=== PATIENT | female | born 1965 | race Caucasian/White ===

== ENCOUNTER → 2017-06-28 07:01 | Outpatient (CLI) | payer OTHER, SELFPAY ==
--- NOTE | 2017-06-28 07:04 | CT_ITS ---
STUDY: CT ABDOMEN AND PELVIS WITHOUT CONTRAST REASON FOR EXAM: Female, 52 years old. History of renal calculi. Microscopic hematuria. RADIATION DOSAGE (If Supplied By Facility): CTDIvol = ( 6.08 ) mGy, DLP = ( 273.43 ) mGycm TECHNIQUE: Transaxial images were obtained from the dome of the diaphragm to the symphysis pubis without oral contrast, and without intravenous contrast. Sagittal and coronal images were reconstructed. Individualized dose optimization techniques were used for this CT. COMPARISON: Comparison is made with prior study dated October 28, 2016. FINDINGS: Minimal linear atelectasis at the lung bases. The visualized portions of the heart are within normal limits. Subcentimeter cysts seen in the liver. These are unchanged. Normal gallbladder and extrahepatic biliary system. Normal spleen. Normal pancreas. Normal bilateral adrenal glands. There are several nonobstructive right intrarenal calculi. The largest measures 3 mm and is in the lower pole. Scattered nonobstructive left intrarenal calculi. The calculi have decreased in number and in size as compared to prior study. Normal visualized stomach. Normal small intestine. Normal colon. The appendix is visualized and appears normal. Normal abdominal aorta. Normal inferior vena cava. Normal retroperitoneum. Normal urinary bladder. Calcified phleboliths are seen in the pelvis. Evidence of prior bilateral tubal ligation. Normal abdominal wall. Normal osseous structures. CT/Abdomen/Pelvis without Cont IMPRESSION: Nonobstructing bilateral intrarenal calculi. The left renal calculi have decreased in number since prior study. No ureteral obstruction is seen at this time. Electronically Signed: Russell Christensen MD at 9:39 EST Tel [phone], Service support ,
== END ==
PROVIDERS: Family Provider Family Medicine; PCP Family Medicine; Visit Provider Urology
DX: N20.0 Calculus of kidney (principal)
CPT/HCPCS: 74176

== ENCOUNTER → 2019-06-25 11:22 | Outpatient (CLI) | payer OTHER, SELFPAY ==
[2016-11-17 11:17] VITALS: BMI 21.4
[2019-06-25 14:12] LABS: Anion Gap 5 (5-15); BUN 33 mg/dL (7-18); Chloride 111 mmol/L (98-107); Cholesterol 242 mg/dL (200); EST Glomerular Filtration Rate 38 mL/min (>60); Est Glom Filt Rate - Afr Amer 46 mL/min (>60); Glucose 91 mg/dL (74-106); High Density Lipoprotein 62 mg/dL; Potassium 3.7 mmol/L (3.5-5.1); Sodium Level 139 mmol/L (136-145); Triglycerides 76 mg/dL; Very Low Density Lipoprotein 15 mg/dL (5-40)
== END ==
PROVIDERS: PCP Family Medicine; Referring Provider Family Medicine; Visit Provider Nurse Practitioner Family
DX: Z00.00 Encounter for general adult medical examination without abnormal findings (principal)
CPT/HCPCS: 36415; 80048; 80061

== ENCOUNTER → 2019-07-04 14:12 | Outpatient (CLI) | payer OTHER, SELFPAY | PROVIDERS: PCP Family Medicine; Referring Provider Family Medicine; Visit Provider Family Medicine | DX: N39.0 Urinary tract infection, site not specified (principal) | CPT/HCPCS: 87086; 87088 ==

== ENCOUNTER → 2019-07-18 12:32 | Outpatient (CLI) | payer OTHER, SELFPAY ==
--- NOTE | 2019-07-18 12:34 | US_ITS ---
STUDY: RENAL ULTRASOUND - COMPLETE REASON FOR EXAM: Female, 54 years old. CKD3 TECHNIQUE: Ultrasound evaluation of the kidneys was performed with real-time and static farrell-scale imaging. COMPARISON: None. FINDINGS: RIGHT KIDNEY: Normal location of the right kidney, which is normal in size. The right kidney measures 9.2 cm x 4.5 cm x 3.9 cm. There is a normal cortex of the right kidney. The renal cortex measures 1.3 cm. There is no right renal mass or cyst. There are multiple nonobstructive right intrarenal calculi. The largest measures 9 mm x 9 mm. There is no right hydronephrosis. DISTAL RIGHT URETER: There is non-visualization of the distal right ureter. There is no demonstrated right ureterovesical junction calculus. There is a visualized right ureteral jet. LEFT KIDNEY: Normal location of the left kidney, which is normal in size. The left kidney measures 8.4 cm x 3.6 cm x 3.9 cm. There is a normal cortex of the left kidney. The renal cortex measures 1.0 cm. There is no left renal mass or cyst. There are multiple left nonobstructing intrarenal calculi. The largest measures 8 mm. There is no left hydronephrosis. DISTAL LEFT URETER: There is non-visualization of the distal left ureter. There is no demonstrated left ureterovesical junction calculus. There is a visualized left ureteral jet. BLADDER: The distended urinary bladder has a volume of 212.7 ml. There is a normal wall thickness of the distended urinary bladder. There is no demonstrated mass within the urinary bladder. There are no demonstrated bladder calculi. US/Kidney and Bladder IMPRESSION: Multiple bilateral intrarenal calculi. Electronically Signed: Russell Christensen, at 15:31 EST , Service support ,
== END ==
PROVIDERS: PCP Family Medicine; Referring Provider Family Medicine; Visit Provider Family Medicine
DX: N18.3 Chronic kidney disease, stage 3 (moderate) (principal)
CPT/HCPCS: 76770

== ENCOUNTER → 2019-07-23 13:27 | Outpatient (CLI) | payer OTHER, SELFPAY ==
[2016-11-17 11:17] VITALS: BMI 21.4
[2019-07-23 17:44] LABS: Albumin, Serum 3.9 g/dL (3.2-5.0); BUN 30 mg/dL (7-18); BUN/Creat Ratio 21.3 RATIO (10-20); Calcium,Total 9.2 mg/dL (8.5-10.1); Chloride 111 mmol/L (98-107); Creatinine, Serum 1.41 mg/dL (0.55-1.02); EST Glomerular Filtration Rate 41 mL/min (>60); Est Glom Filt Rate - Afr Amer 50 mL/min (>60); Glucose 88 mg/dL (74-106); Phosphorus 3.1 mg/dL (2.5-4.9); Sodium Level 141 mmol/L (136-145)
== END ==
PROVIDERS: PCP Family Medicine; Visit Provider Internal Medicine Nephrology
DX: N18.3 Chronic kidney disease, stage 3 (moderate) (principal)
CPT/HCPCS: 36415; 80069; 83970

== ENCOUNTER → 2019-07-28 07:40 | Outpatient (CLI) | payer OTHER, SELFPAY ==
[2019-07-28 08:39] LABS: 24Hr.Lytes Total Volume 4175 mL; Sodium 24 HR UR 200 mmol/24h (40-220); Urine Sodium 48 mmol/L (Not Establ.)
[2019-07-28 08:41] LABS: 24HR. Urine Creatinine 1.03 g/24 HR (0.70-1.90)
[2019-07-29 14:08] LABS: Uric Acid, Ur 10.1 mg/dL (Not Estab.)
[2019-07-29 16:42] LABS: Uric Acid, 24Ur 421.3 mg/24 hr (173.7-902.1)
== END ==
PROVIDERS: PCP Family Medicine; Referring Provider Internal Medicine Nephrology; Visit Provider Internal Medicine Nephrology
DX: N20.2 Calculus of kidney with calculus of ureter (principal)
CPT/HCPCS: 81050; 82570; 84300; 84560

== ENCOUNTER → 2020-07-08 13:31 | Outpatient (CLI) | payer OTHER, SELFPAY ==
[2016-11-17 11:17] VITALS: BMI 21.4
== END ==
PROVIDERS: PCP Family Medicine; Referring Provider Family Medicine; Visit Provider Family Medicine
DX: Z20.828 Contact with and (suspected) exposure to other viral communicable diseases (principal)
CPT/HCPCS: 87635; U0005; U0003

== ENCOUNTER 2020-12-22 17:39 | Emergency (ER) | payer OTHER, SELFPAY ==
[2020-12-22 17:39] VITALS: BP 96/44; PULSE 63; RESP 15; TEMP 36.1; O2SAT 99; BMI 22.3
--- NOTE | 2020-12-22 19:13 | CT_ITS ---
STUDY: CT ABDOMEN AND PELVIS WITHOUT CONTRAST REASON FOR EXAM: Female, 55 years old. Pain RADIATION DOSAGE (If Supplied By Facility): CTDIvol = ( 7.65 ) mGy, DLP = ( 355.38 ) mGycm TECHNIQUE: Transaxial images were obtained from the dome of the diaphragm to the symphysis pubis without oral contrast, and without intravenous contrast. Sagittal and coronal images were reconstructed. Individualized dose optimization techniques were used for this CT. COMPARISON: Prior abdomen and pelvic CT exam of 06/28/2017 FINDINGS: Mild atelectatic changes at the left lung base. The visualized portions of the heart are within normal limits. Normal liver. Normal gallbladder and extrahepatic biliary system. Normal spleen. Normal pancreas. Normal bilateral adrenal glands. Hydronephrosis of the right kidney secondary to a 5 x 3 mm stone in the distal right ureter at the ureterovesicular junction. There are 3, 4 and 5 mm nonobstructing stones in the lower pole of the right kidney. 4 x 3 mm nonobstructing stone in the upper pole of the left kidney without hydronephrosis. Small hiatal hernia with an otherwise unremarkable stomach. Normal small intestine. Normal colon. The appendix is visualized and appears normal. Minimal calcific plaque of the aorta. Normal inferior vena cava. Normal retroperitoneum. Nondistended urinary bladder. Negative for pelvic mass. Tubal ligation clip on the right in the adnexal area. The other tubal ligation clip appears to be lying in the fat next to the sigmoid colon not in the adnexal area. Normal abdominal wall. Mild degenerative changes of the lumbar spine with a levoscoliosis. CT/Abdomen/Pelvis without Cont IMPRESSION: Hydronephrosis of the right kidney secondary to a 5 x 3 mm stone in the distal right ureter just above the ureterovesicular junction. There are 3, 4 and 5 mm nonobstructing stones in the lower pole of the right kidney. 3 x 4 mm nonobstructing stone in the upper pole of left kidney without hydronephrosis or ureteral stones. Unremarkable nondistended urinary bladder. No other acute abdominal or pelvic findings. Electronically Signed: Queta Elmore MD at 20:05 EDT , Service support ,
--- NOTE | 2020-12-22 19:17 | ED.VIS.GI ---
HPI HPI - GI History of Present Illness Chief Complaint: Flank Pain Informant: patient Abdominal Pain/Flank Pain Timing: Continuous Narrative Narrative: Patient presents with right flank pain that now radiates to the right groin. She has had kidney stones before. She has got nausea and vomiting with this. She also has felt chilled but no documented fever. She felt fine until noon when this started. She has some chronic back pain but this is quite different. Only surgery is prior . Nothing makes this better or worse. PFSH PFSH Medical History Hypertension Kidney calculi Migraines Home Medications nebivolol [Bystolic] 20 mg PO DAILY 01/31/16 [History Last Taken 11/17/16] topiramate 100 mg PO BID 01/31/16 [History Last Taken Unknown] buspirone 10 mg PO BID 10/28/16 [History Last Taken Unknown] eletriptan [Relpax] 40 mg PO PRN PRN 10/28/16 [History Last Taken Unknown] [id number] acid-biotin [Women Multivit W-Biotin Gummy] 1 ea PO DAILY 11/10/16 [History Last Taken Unknown] cephalexin 500 mg PO TID 7 Days #21 cap 12/22/20 [Rx Last Taken Unknown] ondansetron HCl [Zofran] 4 mg PO Q8H PRN #10 tab 12/22/20 [Rx Last Taken Unknown] oxycodone-acetaminophen [Percocet] 1 tab PO Q6H PRN 3 Days #12 tab 12/22/20 [Rx Last Taken Unknown] tamsulosin [Flomax] 0.4 mg PO DAILY #7 cap 12/22/20 [Rx Last Taken Unknown] Allergy/AdvReac Type Severity Reaction Status Date / Time meperidine [From Demerol] Allergy Vomiting Verified 12/22/20 17:41 tioconazole Allergy Itching Verified 12/22/20 17:41 [From Monistat 1 (tioconazole)] Social History Smoking Status: Never smoker ROS ROS ED Constitutional Constitutional ED: Reports fever(s) and subjective; Denies sweats ENT ENT ED: Denies rhinorrhea Cardiovascular Cardiovascular: Denies chest pain or palpitations Respiratory/Chest Respiratory/Chest: Denies cough or dyspnea Gastrointestinal Gastrointestinal: Reports abdominal pain, nausea and vomiting; Denies constipation, diarrhea or melena Genitourinary Genitourinary ED: Denies dysuria, hematuria or urinary frequency Musculoskeletal Musculoskeletal: Denies arthralgias or myalgias Integumentary Denies rash Neurologic Neurologic: Denies headache(s) or weakness Endocrine Endocrinology: Denies polydipsia or polyuria Allergic/Immunologic Allergic/Immunologic ED: Denies urticaria EXAM Physical Exam Const Vital Signs: 12/22/20 17:39 12/22/20 18:45 Temperature 97 F L Temperature Source Temporal Pulse Rate 63 Respiratory Rate 15 Respiratory Pattern Normal Blood Pressure 96/44 L Blood Pressure Mean 61 Pulse Ox 99 Oxygen Delivery Method Room Air Positive well nourished and well developed General Appearance ED: well developed and other Patient looks a bit uncomfortable HEENT normocephalic and atraumatic Eyes EOMs intact bilaterally Neck supple Resp normal respiratory effort and clear to auscultation bilaterally Cardio regular rate, regular rhythm and no murmurs GI non-tender and non-distended GI Narrative: Despite her pain, the abdomen is actually benign. Palpation: soft Back/Spine Back/Spine Narrative: He does have right-sided CVA tenderness General Back: CVA tenderness Extremity General Extremety ED: Negative for edema or tenderness General Extremity: Negative for edema Neuro Sensorium / Orientation: alert and oriented to person Psych mental status grossly normal Skin Rashes: no rashes MDM MDM MDM Narrative Medical decision making narrative: Patient scan is consistent with a 3 to 5 mm stone in the distal UVJ on the right. She does have some hydro-. She has no white count. Hemoglobin good. Electrolytes show baseline renal dysfunction but is not worse. However her urine did show some signs that could be consistent with infection. Her symptoms do not match that. Her pain was sudden onset at noon. I have sent a urine culture. I will give her Rocephin here. I discussed the case with urology, Dr. Loepz. She can see her in the office tomorrow. We will give her good instructions on indications to return that include worsening pain, fevers, nausea vomiting or other concerns. Lab Data Attestation: I reviewed the patient's lab results. Labs: Laboratory Results - last 24 hr 12/22/20 12/22/20 12/22/20 18:55 18:55 19:28 WBC 6.1 RBC 4.18 L Hgb 13.2 Hct 40.5 MCV 96.9 MCH 31.6 MCHC 32.6 RDW Std Deviation 44.3 H RDW Coeff of [place] 12.5 Plt Count 158 MPV 11.3 Immature Gran % (Auto) 0.700 Neut % (Auto) 93.9 H Lymph % (Auto) 3.5 L [place] % (Auto) 0.7 Eos % (Auto) 0.7 Baso % (Auto) 0.5 Absolute Neuts (auto) 5.7 Absolute Lymphs (auto) 0.21 L Nucleated RBC % 0 Differential Comment SCANNED Sodium 137 Potassium 3.8 Chloride 110 H Carbon Dioxide 20.0 L Anion Gap 7 BUN 24 H Creatinine 1.47 H Estim Creat Clear Calc 36.46 Est GFR (MDRD) Af Amer 47 L Est GFR (MDRD) Non-Af 39 L BUN/Creatinine Ratio 16.3 Glucose 109 H Calcium 8.8 Urine Color Yellow Urine Clarity Sl. Cloudy Urine pH 6.0 Ur Specific [place] 1.020 Urine Protein 30 H Urine Glucose (UA) Normal Urine Ketones Negative Urine Occult Blood 50 H Urine Nitrite Positive H Urine Bilirubin Negative Urine Urobilinogen Normal Ur Leukocyte Esterase 500 H Urine RBC 5-10 SEEN Urine WBC 50-100 SEEN Ur Squamous Epith Cells 0 SEEN Urine Bacteria 3+ Urine Mucus 0 SEEN Radiography Diagnostic Testing: Radiology Impression Abdomen/Pelvis CT 12/22/20 19:13 IMPRESSION: Hydronephrosis of the right kidney secondary to a 5 x 3 mm stone in the distal right ureter just above the ureterovesicular junction. There are 3, 4 and 5 mm nonobstructing stones in the lower pole of the right kidney. 3 x 4 mm nonobstructing stone in the upper pole of left kidney without hydronephrosis or ureteral stones. Unremarkable nondistended urinary bladder. No other acute abdominal or pelvic findings. Electronically Signed: Queta Elmore MD at 20:05 EDT , Service support , Discharge Plan Triage Chief Complaint: Flank Pain ED Provider: Bj Segura Dx/Rx/DC Orders Clinical Impression: Kidney stone Instructions: ED Kidney Stone w/ Colic Prescriptions: New oxycodone-acetaminophen [Percocet] 5-325 mg tablet 1 tab PO Q6H PRN (Reason: pain) 3 Days Qty: 12 RF: 0 tamsulosin [Flomax] 0.4 mg capsule 0.4 mg PO DAILY Qty: 7 RF: 0 ondansetron HCl [Zofran] 4 mg tablet 4 mg PO Q8H PRN (Reason: nausea and vomiting) Qty: 10 RF: 0 cephalexin 500 mg capsule 500 mg PO TID 7 Days Qty: 21 RF: 0 No Action topiramate 50 MG tablet 100 mg PO BID RF: 0 Bystolic 5 MG tablet 20 mg PO DAILY RF: 0 buspirone 10 MG tablet 10 mg PO BID RF: 0 eletriptan [Relpax] 40 MG tablet 40 mg PO PRN PRN (Reason: Headache) RF: 0 Women's Multivitamin w-Biotin 1 EACH tablet,chewable 1 ea PO DAILY RF: 0 Primary Care Provider: Jason Perez Referrals: Jason Perez MD [Primary Care Provider] - Katarina Blanca MD [STAFF PHYSICIAN] - 1 Day Disposition Disposition: Home, Self Care
[2020-12-22] MEDS: Ketorolac 15 MG/ML Vial IV (19:23)
[2020-12-22] MEDS: Ondansetron 4 MG/2 ML Vial IV (19:25)
[2020-12-22 19:26] LABS: Absolute Lymphocyte Count 0.21 X10^3/uL (0.83-4.51); Absolute Neutrophil Count 5.7 X10^3/uL (2.0-7.7); Basophil# 0.03 X10^3/uL; Basophil% 0.5 % (0-1); Eosinophil# 0.04 X10^3/uL; Eosinophils% 0.7 % (0-5); Hematocrit 40.5 % (37-47); Hemoglobin 13.2 g/dL (12.0-15.0); Lymphocyte # 0.21 X10^3/ul (0.83-4.51); Lymphocyte % 3.5 % (19-41); Mean Corp Hgb Conc 32.6 g/dL (32-36); Mean Corpuscular Hgb 31.6 pg (27.0-32.0); Mean Corpuscular Volume 96.9 fL (81-99); Mean Platelet Vol. 11.3 fl (6.2-12.0); Monocyte# 0.04 X10^3/uL; Monocyte% 0.7 % (0-10); NRBC Flagged by Analyzer 0 % (0-5); Neutrophil # 5.71 X10^3/uL (2.7-7.7); Neutrophil % 93.9 % (47-70); POSITIVE DIFFERENTIAL YES; POSITIVE MORPHOLOGY YES; Platelet Count 158 K/mm3 (150-450); RBC Distribution Width CV 12.5 % (11.6-14.6); RBC Distribution Width SD 44.3 fl (35.1-43.9); Red Blood Count 4.18 M/mm3 (4.2-5.4); White Blood Count 6.1 K/mm3 (4.4-11.0)
[2020-12-22] MEDS: Morphine 4 MG/ML Syringe IV (19:26)
[2020-12-22 19:34] LABS: Anion Gap 7 (5-15); BUN 24 mg/dL (7-18); BUN/Creat Ratio 16.3 RATIO (10-20); Calcium,Total 8.8 mg/dL (8.5-10.1); Chloride 110 mmol/L (98-107); Creatinine, Serum 1.47 mg/dL (0.55-1.02); EST Glomerular Filtration Rate 39 mL/min (>60); Est Glom Filt Rate - Afr Amer 47 mL/min (>60); Estimated Creatinine Clearance 36.46 ml/min; Glucose 109 mg/dL (74-106); Potassium 3.8 mmol/L (3.5-5.1); Sodium Level 137 mmol/L (136-145)
[2020-12-22 19:37] LABS: Mucous, Urine 0 SEEN /hpf (<or=2+); Squamous Epithelial Cells - UA 0 SEEN /hpf (5-10)
[2020-12-22 19:43] LABS: Differential Indicated SCAN CRITERIA MET
[2020-12-22 19:47] LABS: Color, Urine Yellow (Yellow); Glucose, Dipstick Normal (Normal); Ketone-Dipstick Negative (Negative); Leukocyte Esterase-Dipstick 500 /ul (Negative); Nitrite-Dipstick Positive (Negative); Occult Blood-Urine 50 /ul (Negative); Protein-Dipstick 30 mg/dl (Negative); Urine Bilirubin Dipstick Negative (Negative); Urine Clarity Sl. Cloudy (Clear); Urine Urobilinogen Normal (Normal)
[2020-12-22 20:10] LABS: Differential Comment SCANNED
[2020-12-22 20:12] LABS: White Blood Cells 50-100 SEEN /hpf (0-5)
[2020-12-22 20:13] LABS: Bacteria 3+ /hpf (None Seen); Red Blood Cells-Urine 5-10 SEEN /hpf (0-5)
[2020-12-22] MEDS: Ceftriaxone 1 GM/50 ML BAG IV (20:54)
[2020-12-22 21:41] VITALS: BP 100/60; PULSE 78; RESP 18; O2SAT 97
== END 2020-12-22 21:41 | disposition home or self-care (01) ==
PROVIDERS: Emergency Provider Emergency Medicine; PCP Family Medicine
DX: N13.2 Hydronephrosis with renal and ureteral calculous obstruction (principal); I10 Essential (primary) hypertension; G89.29 Other chronic pain; M54.9 Dorsalgia, unspecified; Z79.899 Other long term (current) drug therapy
CPT/HCPCS: 74176; 80048; 81001; 85025; 87077; 87086; 87088; 87186; 96365; 96375; 99284; J7050; A4216; J2405

== ENCOUNTER 2020-12-23 13:45 | Observation (INO) | payer OTHER, SELFPAY ==
[2020-12-22 17:39] VITALS: BMI 22.3
[2020-12-23] VITALS (11 sets, daily range): BP systolic 83–103; BP diastolic 49–65; PULSE 64–90; RESP 16–18; TEMP 36.5–37.1; O2SAT 96–99; BMI 25.7
--- NOTE | 2020-12-23 14:00 | EDS_ITS ---
HPI History of Present Illness Chief Complaint: Abd Pain Detail of Chief Complaint: Right-sided back and abdominal pain due to obstructing ureterolithiasis. Informant: patient Onset/Context/Timing Onset: Today Context: Sudden Onset Timing: Intermittent Quality: Temperature 101.2 ?F. Did take pain medicine Location: Obstructing stone right ureter Current Severity: 06/13 Maximum Severity: 8/10 Worsened by: Nothing Relieved by: Medicine prescribed yesterday Associated Symptoms Associated Symptoms: Fever, chills and diaphoresis Narrative Narrative: Patient is a 55-year-old woman who was seen last evening and had an obstructing stone. She was sent in because of elevated temperature with shaking chills and diaphoresis. She states she is feels better since taking Percocet. She is no longer febrile. Blood pressure is low at 98/54. Will need to determine mean arterial pressure. Sepsis work-up was initiated. Patient is scheduled to have operative procedure at 1600. Prior similar symptoms: Yes Recent Illness/Hospitalization: No PFSH PFS Medical History Hypertension Kidney calculi Migraines Home Medications nebivolol [Bystolic] 20 mg PO DAILY 01/31/16 [History Last Taken 11/17/16] topiramate 100 mg PO BID 01/31/16 [History Last Taken Unknown] buspirone 10 mg PO BID 10/28/16 [History Last Taken Unknown] eletriptan [Relpax] 40 mg PO PRN PRN 10/28/16 [History Last Taken Unknown] [id number] acid-biotin [Women Multivit W-Biotin Gummy] 1 ea PO DAILY 11/10/16 [History Last Taken Unknown] cephalexin 500 mg PO TID 7 Days #21 cap 12/22/20 [Rx Last Taken Unknown] ondansetron HCl [Zofran] 4 mg PO Q8H PRN #10 tab 12/22/20 [Rx Last Taken Unknown] oxycodone-acetaminophen [Percocet] 1 tab PO Q6H PRN 3 Days #12 tab 12/22/20 [Rx Last Taken Unknown] tamsulosin [Flomax] 0.4 mg PO DAILY #7 cap 12/22/20 [Rx Last Taken Unknown] potassium citrate 10 meq PO DAILY 12/23/20 [History Last Taken Unknown] Allergy/AdvReac Type Severity Reaction Status Date / Time meperidine [From Demerol] Allergy Vomiting Verified 12/23/20 13:48 tioconazole Allergy Itching Verified 12/23/20 13:48 [From Monistat 1 (tioconazole)] Social History (Updated 12/23/20 @ 14:[address] Vipul Hanley MD) household members: spouse Smoking Status: Never smoker alcohol intake: current alcohol intake frequency: a few times a month substance use type: does not use ROS ROS ED Constitutional Constitutional ED: Reports chills, fever(s) and sweats Eyes Eyes: Denies blurry vision or change in vision ENT ENT ED: Denies ear pain, rhinorrhea or sore throat Cardiovascular Cardiovascular: Denies chest pain or palpitations Respiratory/Chest Respiratory/Chest: Denies cough, dyspnea or dyspnea on exertion Gastrointestinal Gastrointestinal: Reports abdominal pain and nausea; Denies constipation, diarrhea or vomiting Genitourinary Genitourinary ED: Denies dysuria, hematuria or urinary frequency Musculoskeletal Musculoskeletal: Reports back pain; Denies arthralgias, myalgias or neck pain Integumentary Denies Abrasions or rash Neurologic Neurologic: Denies headache(s), paresthesias or weakness EXAM Physical Exam Const Vital Signs: 12/23/20 13:46 12/23/20 14:45 Temperature 98.4 F 98.4 F Temperature Source Oral Oral Pulse Rate 90 64 Respiratory Rate 16 18 Blood Pressure 98/54 L 103/65 Blood Pressure Mean 68 77 Pulse Ox 97 96 Oxygen Delivery Method Room Air Room Air Positive well nourished and well developed General Appearance ED: well developed HEENT Reports moist mucous membranes HEENT Narrative: Has atraumatic normocephalic. There is no asymmetry. Ears normal. Eyes EOMs intact bilaterally Neck no lymphadenopathy, supple and no JVD Chest Wall inspection of chest normal Resp normal respiratory effort and clear to auscultation bilaterally Cardio regular rate, regular rhythm, S1 normal heart sound and S2 normal heart sound GI normal to inspection, nondistended, normoactive bowel sounds and non-tender Palpation: soft Back/Spine General Back: CVA tenderness right Cervical Spine: Negative for cervical spine tenderness Thoracic Spine / Upper Back: Negative for thoracic spinal tenderness or paraspinal muscle tenderness Lumbar Spine / Lower Back: Negative for lumbar spinal tenderness Extremity normal to inspection General Extremety ED: Negative for edema or tenderness General Extremity: Negative for edema Neuro oriented x3 and CN's II-XII intact bilaterally Sensorium / Orientation: alert Sensory Exam: No sensory level loss detected Motor Exam: Negative for strength 5/5 throughout Psych mental status grossly normal Skin no rashes or lesions noted and no wounds MDM MDM MDM Narrative Medical decision making narrative: Patient has a fever with obstructing stone concern for sepsis. Appropriate blood work was ordered. She will receive Rocephin. She is present on cephalexin. Patient blood pressure did improve with fluids. Will order additional liter of normal saline. Lactate was normal. Dr. Katarina Dodson was informed of patient's results. Plan is the operating room at 4:00. Lab Data Attestation: I reviewed the patient's lab results. Lab results narrative: White count is elevated. There is no shift. There is no bandemia. Urine is consistent with an infection. Creatinine is elevated compared to yesterday at 1.91 with a GFR of 29. Lactate is pending. Labs: Laboratory Results - last 24 hr 12/23/20 12/23/20 12/23/20 14:15 14:15 14:15 WBC 11.7 H RBC 3.92 L Hgb 12.7 Hct 36.9 L MCV 94.1 MCH 32.4 H MCHC 34.4 D RDW Std Deviation 44.9 H RDW Coeff of [place] 12.9 Plt Count 151 MPV 11.4 Immature Gran % (Auto) 0.700 Neut % (Auto) 88.2 H Lymph % (Auto) 4.3 L [place] % (Auto) 5.2 Eos % (Auto) 1.1 Baso % (Auto) 0.5 Absolute Neuts (auto) 10.3 H Absolute Lymphs (auto) 0.50 L Nucleated RBC % 0 Sodium 137 Potassium 3.5 Chloride 107 Carbon Dioxide 24.0 Anion Gap 6 BUN 31 H Creatinine 1.91 H Estim Creat Clear Calc 28.06 Est GFR (MDRD) Af Amer 35 L Est GFR (MDRD) Non-Af 29 L BUN/Creatinine Ratio 16.2 Glucose 114 H Lactic Acid 1.6 Calcium 8.6 Urine Color Urine Clarity Urine pH Ur Specific [place] Urine Protein Urine Glucose (UA) Urine Ketones Urine Occult Blood Urine Nitrite Urine Bilirubin Urine Urobilinogen Ur Leukocyte Esterase Urine RBC Urine WBC Ur Squamous Epith Cells Urine Bacteria Urine Mucus 12/23/20 14:32 WBC RBC Hgb Hct MCV MCH MCHC RDW Std Deviation RDW Coeff of [place] Plt Count MPV Immature Gran % (Auto) Neut % (Auto) Lymph % (Auto) [place] % (Auto) Eos % (Auto) Baso % (Auto) Absolute Neuts (auto) Absolute Lymphs (auto) Nucleated RBC % Sodium Potassium Chloride Carbon Dioxide Anion Gap BUN Creatinine Estim Creat Clear Calc Est GFR (MDRD) Af Amer Est GFR (MDRD) Non-Af BUN/Creatinine Ratio Glucose Lactic Acid Calcium Urine Color Yellow Urine Clarity Cloudy Urine pH 5.0 Ur Specific [place] 1.015 Urine Protein 30 H Urine Glucose (UA) Normal Urine Ketones Negative Urine Occult Blood 150 H Urine Nitrite Negative Urine Bilirubin Negative Urine Urobilinogen Normal Ur Leukocyte Esterase 500 H Urine RBC 0-5 SEEN Urine WBC 25-50 SEEN Ur Squamous Epith Cells 0-5 SEEN Urine Bacteria 1+ Urine Mucus 0 SEEN Discharge Plan Triage Chief Complaint: Abd Pain ED Provider: Vipul Hanley Dx/Rx/DC Orders Clinical Impression: Acute hypotension, Urinary tract infection, Ureterolithiasis, Acute on chronic renal insufficiency Prescriptions: No Action topiramate 50 MG tablet 100 mg PO BID RF: 0 Bystolic 5 MG tablet 20 mg PO DAILY RF: 0 buspirone 10 MG tablet 10 mg PO BID RF: 0 eletriptan [Relpax] 40 MG tablet 40 mg PO PRN PRN (Reason: Headache) RF: 0 Women's Multivitamin w-Biotin 1 EACH tablet,chewable 1 ea PO DAILY RF: 0 oxycodone-acetaminophen [Percocet] 5-325 mg tablet 1 tab PO Q6H PRN (Reason: pain) 3 Days Qty: 12 RF: 0 tamsulosin [Flomax] 0.4 mg capsule 0.4 mg PO DAILY Qty: 7 RF: 0 ondansetron HCl [Zofran] 4 mg tablet 4 mg PO Q8H PRN (Reason: nausea and vomiting) Qty: 10 RF: 0 cephalexin 500 mg capsule 500 mg PO TID 7 Days Qty: 21 RF: 0 potassium citrate 10 mEq (1,080 mg) tablet extended release 10 meq PO DAILY RF: 0 Primary Care Provider: Jason Perez Referrals: Jason Perez MD [Primary Care Provider] - Disposition Disposition: Acute Care Hospital [facility]
--- NOTE | 2020-12-23 14:06 | EKG12_ITS ---
Test Reason : ABD PAIN Blood Pressure : / mmHG Vent. Rate : 078 BPM Atrial Rate : 078 BPM P-R Int : 144 ms QRS Dur : 084 ms QT Int : 366 ms P-R-T Axes : 057 032 061 degrees QTc Int : 417 ms Normal sinus rhythm Normal ECG Confirmed by BRAYAN COLLINS, FABIAN ([id number]), design editor INGA LERMA ([id number]) on 12/27/2020 1:17:59 PM Referred By: SHANAE Confirmed By:FABIAN SCHMIDT MD
[2020-12-23 14:35] LABS: Absolute Neutrophil Count 10.3 X10^3/uL (2.0-7.7); Basophil# 0.06 X10^3/uL; Basophil% 0.5 % (0-1); Eosinophil# 0.13 X10^3/uL; Eosinophils% 1.1 % (0-5); Hematocrit 36.9 % (37-47); Hemoglobin 12.7 g/dL (12.0-15.0); Lymphocyte % 4.3 % (19-41); Mean Corp Hgb Conc 34.4 g/dL (32-36); Mean Corpuscular Hgb 32.4 pg (27.0-32.0); Mean Corpuscular Volume 94.1 fL (81-99); Mean Platelet Vol. 11.4 fl (6.2-12.0); Monocyte# 0.61 X10^3/uL; Monocyte% 5.2 % (0-10); NRBC Flagged by Analyzer 0 % (0-5); Neutrophil # 10.29 X10^3/uL (2.7-7.7); Neutrophil % 88.2 % (47-70); POSITIVE DIFFERENTIAL YES; Platelet Count 151 K/mm3 (150-450); RBC Distribution Width CV 12.9 % (11.6-14.6); RBC Distribution Width SD 44.9 fl (35.1-43.9); Red Blood Count 3.92 M/mm3 (4.2-5.4); White Blood Count 11.7 K/mm3 (4.4-11.0)
[2020-12-23 14:37] LABS: Differential Indicated SCAN CRITERIA MET
[2020-12-23] MEDS: 0.9% Normal Saline 1,000 ML 1000 ML IV (14:41)
[2020-12-23 14:47] LABS: Anion Gap 6 (5-15); BUN 31 mg/dL (7-18); BUN/Creat Ratio 16.2 RATIO (10-20); Calcium,Total 8.6 mg/dL (8.5-10.1); Chloride 107 mmol/L (98-107); Creatinine, Serum 1.91 mg/dL (0.55-1.02); EST Glomerular Filtration Rate 29 mL/min (>60); Est Glom Filt Rate - Afr Amer 35 mL/min (>60); Estimated Creatinine Clearance 28.06 ml/min; Glucose 114 mg/dL (74-106); Potassium 3.5 mmol/L (3.5-5.1); Sodium Level 137 mmol/L (136-145)
[2020-12-23 14:47] LABS: Mucous, Urine 0 SEEN /hpf (<or=2+)
[2020-12-23 14:48] LABS: Color, Urine Yellow (Yellow); Glucose, Dipstick Normal (Normal); Ketone-Dipstick Negative (Negative); Leukocyte Esterase-Dipstick 500 /ul (Negative); Nitrite-Dipstick Negative (Negative); Occult Blood-Urine 150 /ul (Negative); Protein-Dipstick 30 mg/dl (Negative); Specific Gravity, Urine 1.015 (1.002-1.030); Urine Bilirubin Dipstick Negative (Negative); Urine Clarity Cloudy (Clear); Urine Urobilinogen Normal (Normal)
[2020-12-23 15:01] LABS: Bacteria 1+ /hpf (None Seen); Red Blood Cells-Urine 0-5 SEEN /hpf (0-5); Squamous Epithelial Cells - UA 0-5 SEEN /hpf (5-10); White Blood Cells 25-50 SEEN /hpf (0-5)
[2020-12-23 15:12] LABS: Lactic Acid 1.6 mmol/L (0.4-1.9)
--- NOTE | 2020-12-23 15:40 | NURSING ---
SURGERY [facility]LEX[facility]DREN[facility] URETERAL STENT PLACEMENT
--- NOTE | 2020-12-23 15:52 | HP.PCM_ITS ---
HPI - General HPI Narrative SUBHASH BAZZI, is a 55 F who presents With a known obstructing right distal ureteral calculus. She was sent home from the emergency room yesterday and today at home developed a fever to 104. We discussed the severity of this situation and will proceed with cystoscopy and right ureteral stent insertion. She has passed many stones in the past and has never required surgical intervention. [facility] Medical History Hypertension Kidney calculi Migraines Home Medications nebivolol [Bystolic] 20 mg PO DAILY 01/31/16 [History Last Taken 11/17/16] topiramate 100 mg PO BID 01/31/16 [History Last Taken Unknown] buspirone 10 mg PO BID 10/28/16 [History Last Taken Unknown] eletriptan [Relpax] 40 mg PO PRN PRN 10/28/16 [History Last Taken Unknown] [id number] acid-biotin [Women Multivit W-Biotin Gummy] 1 ea PO DAILY 11/10/16 [History Last Taken Unknown] cephalexin 500 mg PO TID 7 Days #21 cap 12/22/20 [Rx Last Taken Unknown] ondansetron HCl [Zofran] 4 mg PO Q8H PRN #10 tab 12/22/20 [Rx Last Taken Unknown] oxycodone-acetaminophen [Percocet] 1 tab PO Q6H PRN 3 Days #12 tab 12/22/20 [Rx Last Taken Unknown] tamsulosin [Flomax] 0.4 mg PO DAILY #7 cap 12/22/20 [Rx Last Taken Unknown] potassium citrate 10 meq PO DAILY 12/23/20 [History Last Taken Unknown] Allergy/AdvReac Type Severity Reaction Status Date / Time meperidine [From Demerol] Allergy Vomiting Verified 12/23/20 13:48 tioconazole Allergy Itching Verified 12/23/20 13:48 [From Monistat 1 (tioconazole)] Social History household members: spouse Smoking Status: Never smoker alcohol intake: current alcohol intake frequency: a few times a month substance use type: does not use ROS Constitutional Constitutional: Reports chills, fatigue and fever(s) Eyes Eyes: Reports systems reviewed and no addt'l complaints, except as documented ENT HEENT: Reports systems reviewed and no addt'l complaints, except as documented Cardiovascular Cardiovascular: Denies chest pain, dyspnea at rest or irregular heart rhythm Respiratory/Chest Respiratory/Chest: Denies change in mental status or dyspnea Gastrointestinal Gastrointestinal: Reports abdominal pain and cramping Genitourinary Genitourinary: Reports abdominal discomfort, low back pain and urinary urgency Musculoskeletal Musculoskeletal: Reports systems reviewed and no addt'l complaints, except as documented Integumentary Integumentary: Reports systems reviewed and no addt'l complaints, except as documented Neurologic Neurologic: Reports systems reviewed and no addt'l complaints, except as documented Psychiatric Psychiatric: Reports systems reviewed and no addt'l complaints, except as documented Vital Signs Vital Signs Vital Signs: 12/23/20 13:46 12/23/20 14:45 12/23/20 15:38 Temperature 98.4 F 98.4 F 98.2 F Temperature Source Oral Oral Oral Pulse Rate 90 64 75 Respiratory Rate 16 18 16 Blood Pressure 98/54 L 103/65 97/61 Blood Pressure Mean 68 77 73 Blood Pressure Source Monitor Blood Pressure Position Sitting Blood Pressure Location Right Arm Pulse Ox 97 96 99 Oxygen Delivery Method Room Air Room Air Room Air Weight Weight: 67.9 kg Body Mass Index (BMI) 25.7 Physical Exam Const alert and oriented x3 General Appearance: cooperative and well kempt Orientation / Consciousness: awake and oriented to person Exam Limitations: no limitations HEENT normocephalic, head/scalp atraumatic, external ears normal and external nose normal Head and Scalp: normal to inspection Eyes conjunctivae normal and no scleral icterus Neck supple General: trachea midline Lymph Lymphatic: no lymphedema noted Chest inspection of chest normal Chest: symmetrical chest wall rise Resp normal respiratory effort, normal air movement, no retractions and no use of accessory muscles Cardio regular rhythm GI soft to palpation, non-tender and non-distended Back/Spine General Back: CVA tenderness right Extremity normal to inspection Skin no rashes or lesions noted, no wounds, skin turgor normal, no jaundice, no petechiae and no mottling Neuro oriented x3, CN's II-XII intact bilaterally and moves all extremities Psych mental status grossly normal, thought process normal and cooperative Results Lab / Micro Data Result Diagrams: 12/23/20 14:15 12/23/20 14:15 Labs: Laboratory Results - last 24 hr 12/23/20 14:15: WBC 11.7 H, RBC 3.92 L, Hgb 12.7, Hct 36.9 L, MCV 94.1, MCH 32.4 H, MCHC 34.4 D, RDW Std Deviation 44.9 H, RDW Coeff of Trever 12.9, Plt Count 151, MPV 11.4, Immature Gran % (Auto) 0.700, Neut % (Auto) 88.2 H, Lymph % (Auto) 4.3 L, Pratt % (Auto) 5.2, Eos % (Auto) 1.1, Baso % (Auto) 0.5, Absolute Neuts (auto) 10.3 H, Absolute Lymphs (auto) 0.50 L, Nucleated RBC % 0 12/23/20 14:15: Sodium 137, Potassium 3.5, Chloride 107, Carbon Dioxide 24.0, Anion Gap 6, BUN 31 H, Creatinine 1.91 H, Estim Creat Clear Calc 28.06, Est GFR (MDRD) Af Amer 35 L, Est GFR (MDRD) Non-Af 29 L, BUN/Creatinine Ratio 16.2, Glucose 114 H, Calcium 8.6 12/23/20 14:15: Lactic Acid 1.6 12/23/20 14:32: Urine Color Yellow, Urine Clarity Cloudy, Urine pH 5.0, Ur Specific [place] 1.015, Urine Protein 30 H, Urine Glucose (UA) Normal, Urine Ketones Negative, Urine Occult Blood 150 H, Urine Nitrite Negative, Urine Bilirubin Negative, Urine Urobilinogen Normal, Ur Leukocyte Esterase 500 H, Urine RBC 0-5 SEEN, Urine WBC 25-50 SEEN, Ur Squamous Epith Cells 0-5 SEEN, Urine Bacteria 1+, Urine Mucus 0 SEEN Assessment & Plan Assessment/Plan (1) Ureterolithiasis: PLAN: to operating room for cystoscopy and right ureteral stent insertion. informed consent obtained (2) Urinary tract infection: (3) Acute hypotension:
--- NOTE | 2020-12-23 15:57 | PCM.OPRPT ---
Problems Associated Problem List Diagnoses (1) Ureterolithiasis: (2) Kidney stone: (3) Urinary tract infection: Report of Operation Date of Procedure: 12/23/20 Pre-Operative Diagnosis: Right distal ureteral calculus, hydronephrosis, urinary tract infection, hypotension and fever Post-Operative Diagnosis: Same Surgery/Procedure Performed:: Cystoscopy and right ureteral stent insertion Surgeon: Katarina Blanca Type of Anesthesia: MAC Description of Procedure: The patient is a 55-year-old female who presented to the emergency room yesterday with uncontrolled pain. On further evaluation she was found to have a distal right ureteral calculus with a urinary tract infection. She was given Rocephin and sent home on antibiotics and pain control. She called the office today with fever of 104 and not feeling well with increased lower abdominal cramping. She was sent to the emergency room which revealed hypotension, increased white count, and creatinine up to 1.9. The patient was prepared and taken to the operating room after informed consent was obtained for placement of a right ureteral stent. The patient was taken to the operating room and placed on the operating room table. Anesthesia monitored the head, neck, airway, IV access and vital signs throughout the case. Once anesthesia was appropriate ministered, the patient was placed into dorsal lithotomy position was prepped and draped in usual sterile fashion. The cystoscope was inserted through the urethra under direct visualization into the urinary bladder. There were no masses, foreign bodies identified. The right ureteral orifice was visualized and intubated with a 0.035 Glidewire. A 6 Kiswahili 24 cm JJ stent was inserted over the Glidewire with positioning into the renal pelvis and curling in the urinary bladder. The patient's bladder was then emptied, and the case was terminated. She was taken to the recovery room in good condition. There were no complications during this procedure. Grafts/Implants Used: 6 x 24 JJ stent Complications None Admit VTE Documentation VTE Present on Admission: Yes VTE Mechan Device Prophylaxis: SCD's VTE Pharm Prophylaxis ordered?: Yes
[2020-12-23] MEDS: Lidocaine Jelly 2% 20 ML Syringe (URO-JET) 20 APPLIC (16:33)
[2020-12-23] MEDS: Lubricating Jelly 60 GM Tube 30 GM TOPICAL (16:33)
[2020-12-23] MEDS: HYDROcodone Bitartrate/Apap 5/325 Tablet PO (18:49)
[2020-12-23] MEDS: Topiramate 100 MG Tablet PO (21:14)
[2020-12-23] MEDS: Docusate Sodium 100 MG Capsule PO (21:14)
[2020-12-23] MEDS: 0.9% Normal Saline 1,000 ML 150 ML IV (21:14)
[2020-12-24 01:15] VITALS: BP 97/60; PULSE 68; RESP 16; TEMP 37.1; O2SAT 97
[2020-12-24] MEDS: 0.9% Normal Saline 1,000 ML 150 ML IV (04:12)
[2020-12-24 04:15] VITALS: BP 109/62; PULSE 78; RESP 16; TEMP 36.7; O2SAT 98
[2020-12-24 06:51] LABS: Absolute Lymphocyte Count 0.46 X10^3/uL (0.83-4.51); Absolute Neutrophil Count 5.7 X10^3/uL (2.0-7.7); Basophil# 0.03 X10^3/uL; Basophil% 0.4 % (0-1); Eosinophil# 0.31 X10^3/uL; Eosinophils% 4.5 % (0-5); Hematocrit 34.8 % (37-47); Hemoglobin 10.9 g/dL (12.0-15.0); Lymphocyte # 0.46 X10^3/ul (0.83-4.51); Lymphocyte % 6.7 % (19-41); Mean Corp Hgb Conc 31.3 g/dL (32-36); Mean Corpuscular Hgb 30.8 pg (27.0-32.0); Mean Corpuscular Volume 98.3 fL (81-99); Mean Platelet Vol. 11.9 fl (6.2-12.0); Monocyte# 0.38 X10^3/uL; Monocyte% 5.5 % (0-10); NRBC Flagged by Analyzer 0 % (0-5); Neutrophil # 5.69 X10^3/uL (2.7-7.7); Neutrophil % 82.3 % (47-70); POSITIVE COUNT YES; POSITIVE DIFFERENTIAL YES; Platelet Count 97 K/mm3 (150-450); RBC Distribution Width CV 13.1 % (11.6-14.6); RBC Distribution Width SD 46.7 fl (35.1-43.9); Red Blood Count 3.54 M/mm3 (4.2-5.4); White Blood Count 6.9 K/mm3 (4.4-11.0)
[2020-12-24 06:56] LABS: Differential Indicated SCAN CRITERIA MET
[2020-12-24 07:14] LABS: Differential Comment SCANNED; Platelet Estimate SLT DEC (ADEQ)
[2020-12-24 07:16] LABS: Anion Gap 7 (5-15); BUN 26 mg/dL (7-18); BUN/Creat Ratio 18.2 RATIO (10-20); Calcium,Total 8.2 mg/dL (8.5-10.1); Chloride 111 mmol/L (98-107); Creatinine, Serum 1.43 mg/dL (0.55-1.02); EST Glomerular Filtration Rate 40 mL/min (>60); Est Glom Filt Rate - Afr Amer 49 mL/min (>60); Estimated Creatinine Clearance 37.48 ml/min; Glucose 75 mg/dL (74-106); Potassium 4.2 mmol/L (3.5-5.1); Sodium Level 143 mmol/L (136-145)
[2020-12-24 07:22] VITALS: BP 122/73; PULSE 93; RESP 14; TEMP 37.7; O2SAT 98
[2020-12-24 10:05] VITALS: TEMP 37.2
[2020-12-24] MEDS: Ceftriaxone 1 GM/50 ML BAG IV (10:06)
[2020-12-24] MEDS: POTASSIUM CITRATE 5 MEQ TABLET.ER 10 MEQ PO (10:10)
[2020-12-24] MEDS: Nebivolol HCl 10 MG Tablet 20 MG PO (10:11)
[2020-12-24] MEDS: Docusate Sodium 100 MG Capsule PO (10:11)
[2020-12-24] MEDS: Enoxaparin 30 MG/0.3 ML Syringe SC (10:11)
[2020-12-24] MEDS: Topiramate 100 MG Tablet PO (10:15)
--- NOTE | 2020-12-24 13:03 | PCM.DC ---
Discharge Instructions Diet Discharge Diet: No restrictions Activity Discharge Activity: Return to Normal Activity Dressing / Incision Call your doctor if you observe: Fever of 101 or Higher, Inability to urinate, Inability to have a bowel movement and Uncontrolled pain Follow Up Care Please Follow Up With: Katarina Blanca MD When: in 1 week in the office Test Results: Test results from this visit will be discussed in further detail at your follow-up appointment, if applicable. Discharge Plan Admission Admit Date/Time: 12/23/20 17:33 Attending Provider: Katarina Blanac Primary Care Provider: Jason Perez Discharge Orders/Prescriptions Prescriptions: New phenazopyridine [Pyridium] 200 MG tablet 200 mg PO TID PRN PRN (Reason: Bladder Spasms) 7 Days Qty: 30 RF: 0 Continued topiramate 50 MG tablet 100 mg PO BID RF: 0 Bystolic 5 MG tablet 20 mg PO DAILY RF: 0 buspirone 10 MG tablet 10 mg PO BID RF: 0 eletriptan [Relpax] 40 MG tablet 40 mg PO PRN PRN (Reason: Headache) RF: 0 Women's Multivitamin w-Biotin 1 EACH tablet,chewable 1 ea PO DAILY RF: 0 oxycodone-acetaminophen [Percocet] 5-325 mg tablet 1 tab PO Q6H PRN (Reason: pain) 3 Days Qty: 12 RF: 0 tamsulosin [Flomax] 0.4 mg capsule 0.4 mg PO DAILY Qty: 7 RF: 0 ondansetron HCl [Zofran] 4 mg tablet 4 mg PO Q8H PRN (Reason: nausea and vomiting) Qty: 10 RF: 0 cephalexin 500 mg capsule 500 mg PO TID 7 Days Qty: 21 RF: 0 potassium citrate 10 mEq (1,080 mg) tablet extended release 10 meq PO DAILY RF: 0 cranberry 400 mg Capsule 400 mg PO DAILY RF: 0 Referrals / Follow Up: Jason Perez MD [Primary Care Provider] - Disposition Disposition (needs filled in before D/C Order can be placed): Home, Self Care
== END 2020-12-24 14:00 | disposition home or self-care (01) ==
LOC: ED 15:23 → SDC 15:41 → MS3 12-24 01:13 → SDC 12-24 11:03 → MS3 12-24 11:03
PROVIDERS: Admitting Provider Urology; Emergency Provider Emergency Medicine; PCP Family Medicine; Visit Provider Urology
PROC: (CPT 52332; principal; 2020-12-23 15:50)
DX: N13.6 Pyonephrosis (principal); I95.9 Hypotension, unspecified; G43.909 Migraine, unspecified, not intractable, without status migrainosus; I10 Essential (primary) hypertension; Z79.899 Other long term (current) drug therapy
CPT/HCPCS: 52332; 36415; 76000; 80048; 81001; 83605; 85025; 87040; 87086; 87088; 93005; 96361; 96365; 96366; 96372; 99218; 99251; 99283; J7030; J7040; A4216; C2617; G0378; G0463; J0696

== ENCOUNTER → 2021-01-05 16:51 | Outpatient (CLI) | payer OTHER, SELFPAY ==
[2020-12-23 17:34] VITALS: BMI 25.7
--- NOTE | 2021-01-05 16:54 | RAD_ITS ---
STUDY: X-RAY - CERVICAL SPINE REASON FOR EXAM: Female, 55 years old. NECK PAIN TECHNIQUE: 5 view(s) of the cervical spine were obtained. COMPARISON: 10/15/2013 FINDINGS: Normal anterior atlantoaxial articulation. Normal odontoid process. Normal cervical lordosis. There is multi-level endplate spondylosis. There is multi-level degenerative disc disease with multilevel disc space narrowing. Normal visualized intervertebral neuroforamina. The soft tissue structures are unremarkable. RAD/Cerv Spine 4 or 5 Views IMPRESSION: Mild degenerative disc disease of the lower cervical spine similar to the prior study. Electronically Signed: Shun Be MD at 9:53 EDT Tel , Service support ,
== END ==
PROVIDERS: PCP Family Medicine; Referring Provider Family Medicine; Visit Provider Family Medicine
DX: M54.2 Cervicalgia (principal)
CPT/HCPCS: 72050

== ENCOUNTER → 2021-01-14 18:59 | Outpatient (CLI) | payer OTHER, SELFPAY ==
[2020-12-23 17:34] VITALS: BMI 25.7
--- NOTE | 2021-01-14 18:58 | CT_ITS ---
INDICATION: URETERAL STONES EXAMINATION: CT ABDOMEN AND PELVIS WITHOUT CONTRAST - CT Abdomen And Pelvis W/O Contrast Injection TECHNIQUE: Helically acquired images were obtained of the abdomen and pelvis without oral or IV contrast. A radiation dose optimization technique was used for this scan. IV Contrast dosage and agent: None. Oral contrast: None. COMPARISON: 12/22/2020 CT abdomen and pelvis. FINDINGS: LOWER CHEST: Minimal bibasilar atelectasis. No cardiomegaly or pericardial effusion. LIVER: Homogeneous. 2, subcentimeter hypodensities right hepatic lobe too small to confidently characterize however most likely represent cysts. GALLBLADDER AND BILIARY TREE: No calcified gallstones. No gallbladder distension or wall edema. No intra- or extrahepatic biliary ductal dilation. PANCREAS: No focal cystic or solid mass. SPLEEN: Normal size without focal cystic or solid mass. ADRENAL GLANDS: No nodules. KIDNEYS AND URETERS: Right double-J ureteral stent is well-positioned. There is significant interval decrease in previously seen perinephric stranding and hydronephrosis. Extra renal pelvis is present. No abnormal calyceal dilation. No residual obstructing stone. No stone in the ureter or bladder. 3 nonobstructing stones inferior pole right kidney 4 mm or smaller are unchanged compared to prior exam. There is also a nonobstructing 4 mm stone in the superior pole of the left kidney, and a 2 mm stone in the inferior pole left kidney. No solid or cystic renal mass lesion. PERITONEUM: No ascites or free air. No other fluid collection. BOWEL: No evidence of acute appendicitis. No stomach or bowel distension. No focal inflammatory change. LYMPH NODES: No enlarged mesenteric or retroperitoneal lymph nodes. VESSELS: Aorta is non-dilated. URINARY BLADDER: Unremarkable. REPRODUCTIVE ORGANS: No pelvic masses. Small metallic clamp right adnexa unchanged compared to prior exam. There are scattered pelvic phleboliths. Uterus is within normal limits. Atrophic ovaries are noted. ABDOMINAL WALL: No discrete abdominal or pelvic wall hernia. BONES: Lateral curvature lumbar spine, convex left. Minimal degenerative endplate changes. Moderate facet arthropathy and opposing posterior spinous processes are noted. No fracture or focal osseous lesion. CT/Abdomen/Pelvis without Cont IMPRESSION: Interval resolution of right-sided hydronephrosis and perinephric fluid status post double-J ureteral stent. No obstructing genitourinary stone. Nonobstructing stones right and left kidney, 4 mm or smaller as above, unchanged compared to prior exam. Electronically Signed: Rajesh Kimble DO at 21:38 EDT Tel , Service support ,
== END ==
PROVIDERS: PCP Family Medicine; Visit Provider Urology
DX: N20.1 Calculus of ureter (principal)
CPT/HCPCS: 74176

== ENCOUNTER → 2021-02-11 09:39 | Outpatient (CLI) | payer OTHER, SELFPAY ==
--- NOTE | 2021-02-11 09:42 | RAD_ITS ---
STUDY: X-RAY - ABDOMEN/PELVIS REASON FOR EXAM: Female, 55 years old. KUB- KIDNEY STONES TECHNIQUE: Single AP view of the abdomen / pelvis. COMPARISON: None. FINDINGS: There is an unremarkable bowel gas pattern. Multiple small calcific opacities overlying the lower pole of the right kidney suggestive of right renal stones. No definite ureteral stone. There are calcified phleboliths in the pelvis. Status post bilateral tubal ligation. Moderate levoscoliosis of the lumbar spine. RAD/Abdomen Single View IMPRESSION: Suspect multiple right renal stones. No definite ureteral stone. Electronically Signed: Shun Be MD at 10:24 EDT Tel , Service support ,
== END ==
PROVIDERS: PCP Family Medicine; Referring Provider Urology; Visit Provider Urology
DX: N20.0 Calculus of kidney (principal)
CPT/HCPCS: 74018

== ENCOUNTER 2021-03-14 09:54 | Day surgery (SDC) | payer OTHER, SELFPAY ==
[2021-03-14] VITALS (7 sets, daily range): BP systolic 81–134; BP diastolic 52–85; PULSE 56–72; RESP 16; TEMP 36.1–36.8; O2SAT 99–100; BMI 25.7
[2021-03-14] MEDS: Lactated Ringers 1,000 ML 100 ML IV (10:38)
--- NOTE | 2021-03-14 11:05 | PCM.HP.STD ---
HPI - General HPI Narrative SUBHASH BAZZI, is a 55 F who presents for extracorporal shockwave lithotripsy management of her right renal stones. Informed consent was obtained. [facility] Medical History Alcohol use Anxiety Arthritis Hypertension Kidney calculi Low iron Migraines Non-smoker Home Medications nebivolol [Bystolic] 20 mg PO DAILY 01/31/16 [History Last Taken 03/14/21 07:00] topiramate 100 mg PO BID 01/31/16 [History Last Taken 03/14/21 07:00] buspirone 10 mg PO BID PRN 10/28/16 [History Last Taken 03/13/21] eletriptan [Relpax] 40 mg PO PRN PRN 10/28/16 [History Last Taken 03/13/21] Women's Multivitamin w-Biotin 1 ea PO DAILY 11/10/16 [History Last Taken 03/13/21] cranberry 400 mg PO DAILY 12/23/20 [History Last Taken 03/13/21] potassium citrate 10 meq PO DAILY 12/23/20 [History Last Taken 03/13/21] [id number] [Excedrin Migraine] 2 tab PO Q6H PRN 03/14/21 [History Last Taken 03/14/21 07:00 2 tabs] Allergy/AdvReac Type Severity Reaction Status Date / Time meperidine [From Demerol] Allergy Vomiting Verified 03/07/21 13:12 tioconazole Allergy Itching Verified 03/07/21 13:12 [From Monistat 1 (tioconazole)] Surgical History History of cystoscopy Social History household members: spouse Smoking Status: Never smoker alcohol intake: current alcohol intake frequency: a few times a month substance use type: does not use ROS Constitutional Constitutional: Denies fatigue, fever(s) or headache(s) Eyes Eyes: Denies change in vision ENT HEENT: Denies abnormal hearing, dysphagia or loss taste/smell Cardiovascular Cardiovascular: Denies abdominal pain, chest pain or edema Respiratory/Chest Respiratory/Chest: Denies cough, dyspnea, hemoptysis or inability to speak Gastrointestinal Gastrointestinal: Denies abdominal pain, anorexia, change in stool character, chewing difficulty or fecal incontinence Genitourinary Genitourinary: Denies change in urinary stream, dysuria, hematuria, urinary frequency or urinary urgency Musculoskeletal Musculoskeletal: Denies extremity pain Integumentary Integumentary: Denies pruritus or rash Neurologic Neurologic: Denies abnormal hearing, abnormal movements or abnormal speech Psychiatric Psychiatric: Reports systems reviewed and no addt'l complaints, except as documented Endocrine Endocrinology: Reports systems reviewed and no addt'l complaints, except as documented Hematologic/Lymphatic Hematologic/Lymphatic: Reports systems reviewed and no addt'l complaints, except as documented Allergic/Immunologic Allergic/Immunologic: Reports systems reviewed and no addt'l complaints, except as documented Vital Signs Vital Signs Vital Signs: 03/14/21 10:38 Temperature 98.3 F Temperature Source Temporal Pulse Rate 64 Respiratory Rate 16 Respiratory Pattern Normal Blood Pressure 125/83 H Blood Pressure Mean 97 Blood Pressure Source Manual Blood Pressure Position Sitting Blood Pressure Location Left Arm Pulse Ox 100 Oxygen Delivery Method Room Air Weight Weight: 68 kg Body Mass Index (BMI) 25.7 Physical Exam Const alert, oriented x3 and no apparent distress General Appearance: cooperative and comfortable Orientation / Consciousness: awake HEENT normocephalic, head/scalp atraumatic and external ears normal Face and Sinus: face symmetric Nose: external nose normal External Ear: external ears normal Mouth: lips normal Eyes General Eye: normal appearance of both eyes Neck supple General: trachea midline Lymph Lymphatic: no lymphedema noted Chest Chest: symmetrical chest wall rise Resp normal respiratory effort, normal air movement, no retractions and no use of accessory muscles Effort and Inspection: able to speak in complete sentences and symmetric chest movement Cardio regular rate and regular rhythm GI soft to palpation, non-tender and non-distended no CVA tenderness Back/Spine General Back: CVA tenderness Extremity General Extremity: normal exam except as noted Skin no rashes or lesions noted, no wounds, skin turgor normal, no jaundice, no petechiae and no mottling Neuro oriented x3, CN's II-XII intact bilaterally and moves all extremities Psych mental status grossly normal, thought process normal and cooperative Assessment & Plan Assessment/Plan (1) Kidney stone: PLAN: Proceed with right extracorporal shockwave lithotripsy for right renal stones. Informed consent was obtained.
--- NOTE | 2021-03-14 11:11 | PCM.DC ---
Discharge Instructions Diet Discharge Diet: No restrictions Activity Discharge Activity: No Restrictions May resume sexual activity in: No Restrictions Dressing / Incision Call your doctor if you observe: Fever of 101 or Higher, Inability to urinate, Inability to have a bowel movement and Uncontrolled pain Follow Up Care Please Follow Up With: Katarina Blanca MD When: in 2-3 weeks with KUB Test Results: Test results from this visit will be discussed in further detail at your follow-up appointment, if applicable. Discharge Plan Admission Attending Provider: Katarina Blanca Primary Care Provider: Jason Perez Discharge Orders/Prescriptions Prescriptions: New oxycodone-acetaminophen [Percocet] 5-325 mg tablet 1 tab PO Q8H PRN (Reason: pain) 3 Days Qty: 10 RF: 0 cephalexin [cephalexin] 500 MG capsule 500 mg PO Q12 3 Days Qty: 6 RF: 0 Continued topiramate 50 MG tablet 100 mg PO BID RF: 0 nebivolol [Bystolic] 5 MG tablet 20 mg PO DAILY RF: 0 buspirone 10 MG tablet 10 mg PO BID PRN (Reason: Anxiety) RF: 0 eletriptan [Relpax] 40 MG tablet 40 mg PO PRN PRN (Reason: Headache) RF: 0 Women's Multivitamin w-Biotin 1 EACH tablet,chewable 1 ea PO DAILY RF: 0 potassium citrate 10 mEq (1,080 mg) tablet extended release 10 meq PO DAILY RF: 0 cranberry 400 mg Capsule 400 mg PO DAILY RF: 0 Excedrin Migraine 250-250-65 mg Tablet 2 tab PO Q6H PRN (Reason: Migraine Headache) RF: 0 Referrals / Follow Up: Jason Perez MD [Primary Care Provider] - Disposition Disposition (needs filled in before D/C Order can be placed): Home, Self Care
[2021-03-14] MEDS: Ciprofloxacin 400 MG/200 ML BAG 200 MG IV (11:45)
--- NOTE | 2021-03-14 13:46 | PCM.OPRPT ---
Problems Associated Problem List Diagnoses (1) Kidney stone: Report of Operation Date of Procedure: 03/14/21 Pre-Operative Diagnosis: right renal stones Post-Operative Diagnosis: same Surgery/Procedure Performed:: right renal extracorporeal shockwave lithotripsy Surgeon: Katarina Blanca Type of Anesthesia: General Description of Procedure: The patient is a 55-year-old female found to have multiple stones approximately 4 to 5 mm in size in the right kidney. She presents for definitive management. Informed consent was obtained. The patient was taken to the operating room and placed on the operating room table. Anesthesia monitored the head, neck, airway, IV access and vital signs throughout the case. Once anesthesia was probably ministered, the lithotripter was aligned with the stone seen on fluoroscopy. 3000 shocks in total were administered and the stones appeared to be fragmented at the conclusion of the case. The patient was then awakened and taken the recovery room in good condition. There were no complications during this procedure. Grafts/Implants Used: none Complications none Admit VTE Documentation VTE Present on Admission: Yes VTE Mechan Device Prophylaxis: SCD's VTE Pharm Prophylaxis ordered?: No Reason prophylaxis not ordered:: Treatment Not Indicated
== END 2021-03-14 14:09 | disposition home or self-care (01) ==
LOC: SDC 09:55 → AC 10:03
PROVIDERS: PCP Family Medicine; Referring Provider Urology; Visit Provider Urology
PROC: (CPT 50590; principal; 2021-03-14 11:35)
DX: N20.0 Calculus of kidney (principal); I10 Essential (primary) hypertension; Z87.442 Personal history of urinary calculi
CPT/HCPCS: 00873; 50590; J7120; J0744

== ENCOUNTER → 2021-04-01 13:19 | Outpatient (CLI) | payer OTHER, SELFPAY ==
--- NOTE | 2021-04-01 13:21 | RAD_ITS ---
STUDY: X-RAY - ABDOMEN/PELVIS REASON FOR EXAM: Female, 55 years old. KUB- KIDNEY STONES TECHNIQUE: Single AP view of the abdomen / pelvis. COMPARISON: 02/11/2021 FINDINGS: Excluded lung bases. There is an unremarkable bowel gas pattern. There is no demonstrated free abdominal air. The visualized liver, spleen and kidneys are grossly normal in size and morphology. The punctate right renal calculi evident on prior x-ray are not clearly seen. There are calcified phleboliths in the pelvis. Tubal ligation surgical clips. Levoscoliosis. RAD/Abdomen Single View IMPRESSION: 1. Right renal calculi seen on the prior study no longer identified. Electronically Signed: Sherman Sullivan MD ([place]) at 16:43 EDT , Service support ,
== END ==
PROVIDERS: PCP Family Medicine; Referring Provider Urology; Visit Provider Urology
DX: N20.0 Calculus of kidney (principal)
CPT/HCPCS: 74018

== ENCOUNTER → 2021-05-31 09:56 | Outpatient (CLI) | payer OTHER, SELFPAY ==
[2021-05-31 12:24] LABS: Hematocrit 41.1 % (37-47); Hemoglobin 13.4 g/dL (12.0-15.0); Mean Corp Hgb Conc 32.6 g/dL (32-36); Mean Corpuscular Hgb 31.1 pg (27.0-32.0); Mean Corpuscular Volume 95.4 fL (81-99); Mean Platelet Vol. 11.1 fl (6.2-12.0); Platelet Count 183 K/mm3 (150-450); RBC Distribution Width CV 12.4 % (11.6-14.6); RBC Distribution Width SD 43.8 fl (35.1-43.9); Red Blood Count 4.31 M/mm3 (4.2-5.4); White Blood Count 4.2 K/mm3 (4.4-11.0)
[2021-05-31 12:34] LABS: Fibrinogen 295 mg/dl (203-444)
[2021-05-31 12:52] LABS: AST(SGOT) 21 U/L (15-37); Alanine Aminotransfer ALT/SGPT 22 U/L (13-56); Albumin, Serum 3.5 g/dL (3.2-5.0); Alkaline Phosphatase 137 U/L (45-117); Anion Gap 7 (5-15); BUN 14 mg/dL (7-18); Calcium,Total 8.8 mg/dL (8.5-10.1); Chloride 109 mmol/L (98-107); Creatinine, Serum 1.08 mg/dL (0.55-1.02); EST Glomerular Filtration Rate 55 mL/min (>60); Est Glom Filt Rate - Afr Amer 67 mL/min (>60); Globulin 3.6 g/dL (2.2-4.2); Glucose 78 mg/dL (74-106); Potassium 3.8 mmol/L (3.5-5.1); Protein, Total 7.1 g/dL (6.4-8.2); Sodium Level 142 mmol/L (136-145)
== END ==
PROVIDERS: PCP Family Medicine; Visit Provider Nurse Practitioner Family
DX: R25.2 Cramp and spasm (principal)
CPT/HCPCS: 36415; 80053; 85027; 85379; 85384

== ENCOUNTER → 2021-05-31 15:06 | Outpatient (CLI) | payer OTHER, SELFPAY ==
--- NOTE | 2021-05-31 15:15 | VDLE_ITS ---
Reason For Study: suspected DVT Procedure LEFT This is a venous duplex using B-mode, color GSV is normal. flow and spectral Doppler. CFV is compressible, spontaneous, phasic, Exam performed in department. competent, and demonstrates normal The exam was abbreviated due to the COVID 19 augmentation. protocol. FV is compressible, spontaneous, phasic, The exam was diagnostic. competent and demonstrates normal A preliminary report was called and/or faxed augmentation. to Selina COSTA. POP V is compressible, spontaneous, phasic, competent and demonstrates normal augmentation. T/P Trunk is compressible. PTV is compressible. LT PerV is compressible. VL/Venous Duplex US, Unilateral Interpretation Summary There is no evidence of left lower extremity deep vein thrombosis. Left great s aphenous vein appears patent and compressible segmentally. Abreviated Covid 19 protocol Ordering Physician: Selina Munoz Performed By: Channing Membreno RVRegina
== END ==
PROVIDERS: PCP Family Medicine; Referring Provider Nurse Practitioner Family; Visit Provider Nurse Practitioner Family
DX: R09.89 Other specified symptoms and signs involving the circulatory and respiratory systems (principal)
CPT/HCPCS: 93971

== ENCOUNTER → 2021-09-22 | Outpatient (CLI) | payer OTHER, SELFPAY | END | disposition home or self-care (01) | LOC: LABSPEC 15:22 | PROVIDERS: PCP Family Medicine; Referring Provider Family Medicine; Visit Provider Family Medicine | DX: R09.89 Other specified symptoms and signs involving the circulatory and respiratory systems (principal); Z20.822 Contact with and (suspected) exposure to COVID-19 | CPT/HCPCS: 87635; U0003; U0005 ==

== ENCOUNTER → 2022-06-23 | Outpatient (CLI) | payer OTHER, SELFPAY ==
[2022-06-23 12:05] LABS: Absolute Lymphocyte Count 1.38 X10^3/uL (0.83-4.51); Absolute Neutrophil Count 2.7 X10^3/uL (2.0-7.7); Basophil# 0.05 X10^3/uL; Eosinophil# 0.51 X10^3/uL; Eosinophils% 10.1 % (0-5); Hematocrit 41.3 % (37-47); Hemoglobin 13.2 g/dL (12.0-15.0); Lymphocyte # 1.38 X10^3/ul (0.83-4.51); Lymphocyte % 27.4 % (19-41); Mean Corpuscular Hgb 30.7 pg (27.0-32.0); Mean Platelet Vol. 11.2 fl (6.2-12.0); Monocyte# 0.35 X10^3/uL; NRBC Flagged by Analyzer 0 % (0-5); Neutrophil # 2.72 X10^3/uL (2.7-7.7); Neutrophil % 54.1 % (47-70); Platelet Count 205 K/mm3 (150-450); RBC Distribution Width CV 12.1 % (11.6-14.6); RBC Distribution Width SD 41.9 fl (35.1-43.9)
[2022-06-23 12:28] LABS: PTHIN 37.5 pg/mL (18.4-80.1)
[2022-06-23 12:33] LABS: Vitamin D,25 Hydroxy 42.6 ng/mL
[2022-06-23 12:37] LABS: ALB/GLOB Ratio 1.1 RATIO (0.9-2.4); AST(SGOT) 17 U/L (15-37); Alanine Aminotransfer ALT/SGPT 16 U/L (13-56); Albumin, Serum 3.8 g/dL (3.2-5.0); Alkaline Phosphatase 119 U/L (45-117); Anion Gap 7 (5-15); BUN 28 mg/dL (7-18); BUN/Creat Ratio 23.3 RATIO (10-20); Calcium,Total 8.7 mg/dL (8.5-10.1); Chloride 111 mmol/L (98-107); Cholesterol 262 mg/dL (200); EST Glomerular Filtration Rate 49 mL/min (>60); Est Glom Filt Rate - Afr Amer 59 mL/min (>60); Globulin 3.4 g/dL (2.2-4.2); Glucose 90 mg/dL (74-106); High Density Lipoprotein 55 mg/dL; Magnesium 1.8 mg/dL (1.6-2.6); Potassium 4.3 mmol/L (3.5-5.1); Protein, Total 7.2 g/dL (6.4-8.2); Sodium Level 141 mmol/L (136-145); T4 Free Direct 0.84 ng/dL (0.76-1.46); Thyroid Stim Hormone (TSH) 0.94 uIU/mL (0.358-3.74); Triglycerides 160 mg/dL; Very Low Density Lipoprotein 32 mg/dL (5-40)
[2022-06-23 13:01] LABS: Microalbumin,Random Urine 24.2 mg/L (NO RANGE EST.); Microalbumin:Creatinine Ratio 27.8 mg/g CRE (<30 mg/g CRE)
== END | disposition home or self-care (01) ==
LOC: MTLAB 11:03
PROVIDERS: PCP Family Medicine; Referring Provider Family Medicine; Visit Provider Family Medicine
DX: N18.30 Chronic kidney disease, stage 3 unspecified (principal); R00.2 Palpitations; E78.00 Pure hypercholesterolemia, unspecified
CPT/HCPCS: 36415; 80053; 80061; 82043; 82306; 82570; 83735; 83970; 84439; 84443; 85025

== ENCOUNTER → 2022-10-24 | Outpatient (CLI) | payer OTHER, SELFPAY ==
[2022-10-24 13:46] LABS: ALB/GLOB Ratio 1.1 RATIO (0.9-2.4); AST(SGOT) 15 U/L (15-37); Alanine Aminotransfer ALT/SGPT 17 U/L (13-56); Albumin, Serum 3.9 g/dL (3.2-5.0); Alkaline Phosphatase 143 U/L (45-117); Anion Gap 8 (5-15); BUN 27 mg/dL (7-18); BUN/Creat Ratio 21.8 RATIO (10-20); Calcium,Total 9.2 mg/dL (8.5-10.1); Chloride 112 mmol/L (98-107); Cholesterol 276 mg/dL (200); Creatinine, Serum 1.24 mg/dL (0.55-1.02); EST Glomerular Filtration Rate 47 mL/min (>60); Est Glom Filt Rate - Afr Amer 57 mL/min (>60); Globulin 3.7 g/dL (2.2-4.2); Glucose 101 mg/dL (74-106); High Density Lipoprotein 56 mg/dL; Potassium 4.3 mmol/L (3.5-5.1); Protein, Total 7.6 g/dL (6.4-8.2); Sodium Level 141 mmol/L (136-145); Triglycerides 122 mg/dL; Very Low Density Lipoprotein 24 mg/dL (5-40)
[2022-10-24 13:48] LABS: Microalbumin,Random Urine 18.4 mg/L (NO RANGE EST.); Microalbumin:Creatinine Ratio 13.7 mg/g CRE (<30 mg/g CRE)
== END | disposition home or self-care (01) ==
LOC: MTLAB 11:00
PROVIDERS: PCP Family Medicine; Referring Provider Family Medicine; Visit Provider Family Medicine
DX: N18.30 Chronic kidney disease, stage 3 unspecified (principal); E78.00 Pure hypercholesterolemia, unspecified
CPT/HCPCS: 36415; 80053; 80061; 82043; 82570

== ENCOUNTER 2022-12-17 16:33 | Emergency (ER) | payer OTHER, SELFPAY ==
[2022-12-17 16:33] VITALS: BP 161/75; PULSE 70; RESP 18; TEMP 36.1; O2SAT 97; BMI 25.7
--- NOTE | 2022-12-17 17:21 | CT_ITS ---
INDICATION: trauma -- TRAUMA ONLY: IV Contrast. Dont wait for creatinine EXAMINATION: CT Chest Abdomen And Pelvis W/ Contrast Injection TECHNIQUE: Images were obtained of the chest, abdomen and pelvis following IV contrast. A radiation dose optimization technique was used for this scan. IV Contrast dosage and agent: IV 100mL [id number] COMPARISON: None. FINDINGS: Lungs: Unremarkable Mediastinum: The cardiomediastinal silhouette is not enlarged. No mediastinal, hilar or axillary adenopathy. Mild aortic arch and coronary artery calcifications. No obvious filling defect seen within the visualized pulmonary arteries. Pleura: Unremarkable Liver: Scattered subcentimeter hypodensities are too small to characterize but most likely cysts. Gallbladder: Unremarkable Spleen: Unremarkable Pancreas: Unremarkable Adrenal Glands: Unremarkable Kidneys: 3 mm nonobstructing stone in the left mid renal pole. Vasculature: Mild scattered aortoiliac atherosclerotic calcifications. GI Tract: Hiatal hernia. Lymphadenopathy: None Peritoneum: No ascites. Bladder: Unremarkable Reproductive organs: Unremarkable Bones/Soft tissues: Mild scattered degenerative changes of the visualized spine. Mild subcutaneous fat stranding in the left anterior thigh. CT/CT Chest, Abd, Pel w/Contrast IMPRESSION: No acute abnormalities in the chest, abdomen or pelvis. 3 mm nonobstructing stone in the left mid renal pole. Electronically Signed: Jose Ramon Slade MD at 18:59 EDT ,
--- NOTE | 2022-12-17 17:21 | CT_ITS ---
EXAMINATION : Head CT w/out contrast HISTORY : Trauma COMPARISON : None. TECHNIQUE : Multiple contiguous axial images were obtained from the skull base to the vertex without intravenous contrast. A radiation dose optimization technique was used for this scan. FINDINGS : The ventricles and sulci are normal in size. There is no evidence for acute intracranial hemorrhage, mass effect, or midline shift. There is no extra-axial fluid collection. There is normal farrell-white differentiation, without CT evidence of acute ischemia or infarct. The skull base and calvarium are unremarkable. The orbits are unremarkable. The paranasal sinuses are clear. The mastoid air cells are well-aerated. The soft tissues are unremarkable. CT/Brain/Head without Contrast IMPRESSION: No acute intracranial abnormality. Electronically Signed: Jose Ramon Slade MD at 18:56 EDT ,
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
--- NOTE | 2022-12-17 17:40 | RAD_ITS ---
INDICATION: pain EXAMINATION/TECHNIQUE: X-RAY - RIGHT XR Foot Min 3 Views COMPARISON: None. FINDINGS: No acute fracture or malalignment. No blastic or lytic lesions. Mild degenerative changes of the hindfoot. The soft tissues are unremarkable. RAD/Foot min 3 Views IMPRESSION: No acute radiographic abnormalities. Electronically Signed: Jose Ramon Slade MD at 20:29 EDT ,
[2022-12-17] MEDS: Lidocaine/Epi/Tetracaine 50 ML 1 APPLIC TOPICAL (17:46)
[2022-12-17 18:07] LABS: Absolute Lymphocyte Count 1.38 X10^3/uL (0.83-4.51); Absolute Neutrophil Count 6.9 X10^3/uL (2.0-7.7); Basophil# 0.06 X10^3/uL; Basophil% 0.6 % (0-1); Eosinophil# 0.44 X10^3/uL; Eosinophils% 4.7 % (0-5); Hemoglobin 12.6 g/dL (12.0-15.0); Lymphocyte # 1.38 X10^3/ul (0.83-4.51); Lymphocyte % 14.7 % (19-41); Mean Corp Hgb Conc 32.3 g/dL (32-36); Mean Corpuscular Volume 96.1 fL (81-99); Mean Platelet Vol. 10.8 fl (6.2-12.0); Monocyte# 0.56 X10^3/uL; NRBC Flagged by Analyzer 0 % (0-5); Neutrophil # 6.92 X10^3/uL (2.7-7.7); Neutrophil % 73.5 % (47-70); Platelet Count 202 K/mm3 (150-450); RBC Distribution Width CV 12.3 % (11.6-14.6); RBC Distribution Width SD 42.8 fl (35.1-43.9); Red Blood Count 4.06 M/mm3 (4.2-5.4); White Blood Count 9.4 K/mm3 (4.4-11.0)
[2022-12-17 18:25] LABS: Anion Gap 5 (5-15); BUN 22 mg/dL (7-18); BUN/Creat Ratio 17.3 RATIO (10-20); Calcium,Total 8.7 mg/dL (8.5-10.1); Chloride 113 mmol/L (98-107); Creatinine, Serum 1.27 mg/dL (0.55-1.02); EST Glomerular Filtration Rate 46 mL/min (>60); Est Glom Filt Rate - Afr Amer 55 mL/min (>60); Estimated Creatinine Clearance 41.19 ml/min; Glucose 108 mg/dL (74-106); Potassium 3.6 mmol/L (3.5-5.1); Sodium Level 141 mmol/L (136-145); Troponin-I HS 3 pg/mL (3.0-54.0)
--- NOTE | 2022-12-17 18:40 | RAD_ITS ---
INDICATION: Trauma EXAMINATION/TECHNIQUE: X-RAY - XR Spine Cervical 2 or 3 Views COMPARISON: None. FINDINGS: VERTEBRAE: Preserved vertebral body height. No fracture. 2 mm retrolisthesis C3 on C4. Preservation of the normal cervical lordosis. Severe multilevel facet arthropathy. DISCS: Severe multilevel degenerative disc disease and spondylosis. NECK SOFT TISSUES: No prevertebral soft tissue widening. LUNG APICES: Clear. RAD/Cerv Spine 2 or 3 Views IMPRESSION: No evidence of acute fracture. Grade 1 retrolisthesis C3 on C4. Severe multilevel degenerative disc disease and spondylosis. Electronically Signed: Jose Ramon Slade MD at 20:29 EDT ,
[2022-12-17 18:43] LABS: Alcohol, Blood (Medical)-Serum < 3.0 mg/dL
[2022-12-17 19:00] VITALS: BP 123/64; PULSE 67; RESP 18; O2SAT 99
[2022-12-17] MEDS: Diphth,Pertuss(Acell),Tet Vac 0.5 ML Vial IM (21:02)
[2022-12-17 21:07] VITALS: BP 122/82; PULSE 62; RESP 18; O2SAT 99
== END 2022-12-17 21:12 | disposition home or self-care (01) ==
PROVIDERS: Emergency Provider Student in an Organized Health Care Education/Training Program; PCP Family Medicine; Visit Provider Student in an Organized Health Care Education/Training Program
DX: S01.01XA Laceration without foreign body of scalp, initial encounter (principal); S09.8XXA Other specified injuries of head, initial encounter; V43.52XA Car driver injured in collision with other type car in traffic accident, initial encounter; Y92.410 Unspecified street and highway as the place of occurrence of the external cause; I10 Essential (primary) hypertension; Z79.899 Other long term (current) drug therapy; F41.9 Anxiety disorder, unspecified; Z79.82 Long term (current) use of aspirin; S90.31XA Contusion of right foot, initial encounter; S29.8XXA Other specified injuries of thorax, initial encounter; Z23 Encounter for immunization
CPT/HCPCS: 12002; 70450; 71260; 72040; 73630; 74177; 80048; 82077; 84484; 85025; 90471; 90715; 93005; 99283; Q9967; A4216

== ENCOUNTER → 2023-01-09 | Outpatient (CLI) | payer OTHER, SELFPAY ==
--- NOTE | 2023-01-09 09:05 | VDLE_ITS ---
Reason For Study: contusion Procedure LEFT This is a venous duplex using B-mode, color GSV is normal. flow and spectral Doppler. CFV is compressible, spontaneous, phasic, Exam performed in department. competent, and demonstrates normal The exam was abbreviated due to the COVID 19 augmentation. protocol. FV is compressible, spontaneous, phasic, The exam was diagnostic. competent and demonstrates normal A preliminary report was called and/or faxed augmentation. to Kalpana at Dr. Maldonado's office. POP V is compressible, spontaneous, phasic, competent and demonstrates normal augmentation. T/P Trunk is compressible. PTV is compressible. LT PerV is compressible. Short segment of the Soleus V is dilated and noncompressible. VL/Venous Duplex US, Unilateral Interpretation Summary Acute deep vein thrombosis is noted in the left soleus vein. The remainder of t he left lower extremity deep venous system is patent and compressible. Valvular competence ap pears intact within the proximal deep venous system on the left . The left great saphenous vein romulo ears patent and compressible segmentally. Ordering Physician: Manju Maldonado Performed By: Channing Membreno RVT
== END | disposition home or self-care (01) ==
LOC: CVS 09:04
PROVIDERS: PCP Family Medicine; Referring Provider Family Medicine; Visit Provider Family Medicine
DX: S80.12XS Contusion of left lower leg, sequela (principal)
CPT/HCPCS: 93971

== ENCOUNTER → 2023-02-09 | Outpatient (CLI) | payer OTHER, SELFPAY ==
--- NOTE | 2023-02-09 10:03 | VDLE_ITS ---
Reason For Study: acute embolism & thrombosis of unspecified deep veins Procedure LEFT This is a venous duplex using B-mode, color GSV is normal. flow and spectral Doppler. CFV is patent and compressible. Exam performed in department. FV is compressible, spontaneous, phasic, A preliminary report was called and/or faxed competent and demonstrates normal to Dr. Maldonado @ [phone] @ 10:35 am. augmentation. POP V is compressible, spontaneous, phasic, competent and demonstrates normal augmentation. T/P Trunk is compressible. PTV is compressible. LT PerV is compressible. LT SOLEUS V OCCLUSION APPEARS RESOLVED. NON-VASCULAR STRUCTURE MEASURING 1.83 cm. X 0.60 cm, noted in the proximal/lateral thigh. VL/Venous Duplex US, Unilateral Interpretation Summary Deep veins of the left lower extremity are patent and compressible segmentally. There is no evidence of left lower extremity deep vein thrombosis. The left great saphenous vein romulo ears patent and compressible segmentally. Resolution of prior soleus vein thrombus Non-Vascular structure measuring 1.83 cm. X 0.60 cm, noted in the proximal/late ral thigh. Ordering Physician: Manju Maldonado Referring Physician: Jason Perez Performed By: Lin Tucker, KANE, RVT
== END | disposition home or self-care (01) ==
PROVIDERS: PCP Family Medicine; Referring Provider Family Medicine; Visit Provider Family Medicine
DX: I82.409 Acute embolism and thrombosis of unspecified deep veins of unspecified lower extremity (principal)
CPT/HCPCS: 93971

== ENCOUNTER → 2023-03-06 | Outpatient (CLI) | payer OTHER, SELFPAY ==
[2023-03-06 15:33] LABS: Absolute Lymphocyte Count 1.13 X10^3/uL (0.83-4.51); Absolute Neutrophil Count 2.6 X10^3/uL (2.0-7.7); Basophil# 0.05 X10^3/uL; Basophil% 1.1 % (0-1); Eosinophil# 0.33 X10^3/uL; Eosinophils% 7.4 % (0-5); Hematocrit 42.1 % (37-47); Hemoglobin 13.3 g/dL (12.0-15.0); Lymphocyte # 1.13 X10^3/ul (0.83-4.51); Lymphocyte % 25.2 % (19-41); Mean Corp Hgb Conc 31.6 g/dL (32-36); Mean Corpuscular Hgb 30.8 pg (27.0-32.0); Mean Corpuscular Volume 97.5 fL (81-99); Mean Platelet Vol. 11.6 fl (6.2-12.0); Monocyte% 8.9 % (0-10); NRBC Flagged by Analyzer 0 % (0-5); Neutrophil # 2.55 X10^3/uL (2.7-7.7); Platelet Count 219 K/mm3 (150-450); RBC Distribution Width CV 12.3 % (11.6-14.6); RBC Distribution Width SD 44.4 fl (35.1-43.9); Red Blood Count 4.32 M/mm3 (4.2-5.4); White Blood Count 4.5 K/mm3 (4.4-11.0)
[2023-03-06 15:49] LABS: ALB/GLOB Ratio 1.1 RATIO (0.9-2.4); AST(SGOT) 18 U/L (15-37); Alanine Aminotransfer ALT/SGPT 23 U/L (13-56); Albumin, Serum 3.8 g/dL (3.2-5.0); Alkaline Phosphatase 121 U/L (45-117); Anion Gap 6 (5-15); BUN 20 mg/dL (7-18); BUN/Creat Ratio 15.5 RATIO (10-20); Calcium,Total 9.4 mg/dL (8.5-10.1); Chloride 113 mmol/L (98-107); Cholesterol 228 mg/dL (200); Creatinine, Serum 1.29 mg/dL (0.55-1.02); EST Glomerular Filtration Rate 45 mL/min (>60); Est Glom Filt Rate - Afr Amer 54 mL/min (>60); Globulin 3.5 g/dL (2.2-4.2); Glucose 83 mg/dL (74-106); High Density Lipoprotein 52 mg/dL; Potassium 4.1 mmol/L (3.5-5.1); Protein, Total 7.3 g/dL (6.4-8.2); Sodium Level 142 mmol/L (136-145); Triglycerides 138 mg/dL; Very Low Density Lipoprotein 28 mg/dL (5-40)
== END | disposition home or self-care (01) ==
LOC: MTLAB 12:35
PROVIDERS: PCP Family Medicine; Referring Provider Family Medicine; Visit Provider Family Medicine
DX: E78.00 Pure hypercholesterolemia, unspecified (principal); N18.30 Chronic kidney disease, stage 3 unspecified; I12.9 Hypertensive chronic kidney disease with stage 1 through stage 4 chronic kidney disease, or unspecified chronic kidney disease
CPT/HCPCS: 36415; 80053; 80061; 85025

== ENCOUNTER 2023-03-24 07:47 | Emergency (ER) | payer OTHER, SELFPAY ==
[2023-03-24 07:48] VITALS: BP 130/81; PULSE 67; RESP 16; TEMP 36.3; O2SAT 97; BMI 25.2
--- NOTE | 2023-03-24 07:58 | VDLE_ITS ---
Reason For Study: RLE Pain RIGHT LEFT GSV is normal. CFV is compressible, spontaneous, phasic, CFV is compressible, spontaneous, phasic, competent, and demonstrates normal competent and demonstrates normal augmentation. augmentation. FV is compressible, spontaneous, phasic, competent and demonstrates normal augmentation. POP V is compressible, spontaneous, phasic, competent and demonstrates normal augmentation. T/P Trunk is compressible. PTV is compressible. RT PerV is compressible. Rt SoleusV is partially compressible with bright intraluminal echoes consistent with chronic DVT. Procedure This is a venous duplex using B-mode, color flow and spectral Doppler. Exam performed portable in ED. A preliminary report was called and/or faxed to Dr. Molina. VL/Venous Duplex US, Unilateral Interpretation Summary Chronic venous changes are noted in the right soleus vein, which is partially c ompressible and demonstrates bright intraluminal echogenicity. The remainder of the right lower extremity deep venous system is patent and compressible. Valvular competence appears intact wi thin the proximal deep venous system on the right . The right great saphenous vein appears patent and compressible segmentally. The left common femoral vein is patent and compressible . Ordering Physician: Eyal Molina Referring Physician: Jason Perez Performed By: Paloma Rivera, KANE, RVT
--- NOTE | 2023-03-24 07:59 | EDS_ITS ---
HPI History of Present Illness Chief Complaint: Lower Extremity Injury Narrative Narrative: This with right calf pain. She is on Eliquis for the past 4 months for a left- sided DVT and symptoms are somewhat similar. She is getting on a flight in a few days and wants to make sure she does not have another DVT. She has no trauma, no redness fevers or chills. PFSH PFSH Medical History Alcohol use Anxiety Arthritis BPPV (benign paroxysmal positional vertigo) Hypertension Kidney calculi Left ear pain Low iron Migraines Non-smoker Home Medications nebivolol 5 mg tablet (Bystolic) 20 mg PO DAILY 01/31/16 [History Last Taken 03/14/21 07:00] topiramate 50 mg tablet 100 mg PO BID 01/31/16 [History Last Taken 03/14/21 07:00] eletriptan 40 mg tablet (Relpax) 40 mg PO PRN PRN Headache 10/28/16 [History Last Taken 03/13/21] multivit with minerals-folic acid 200 mcg-biotin 300 mcg chew tablet (Women's Multivitamin with Biotin) 1 ea PO DAILY 11/10/16 [History Last Taken 03/13/21] cranberry 400 mg capsule 400 mg PO DAILY 12/23/20 [History Last Taken 03/13/21] nitrofurantoin macrocrystal 50 mg capsule 50 mg PO DAILY 12/17/22 [History Last Taken Unknown] ramipril 1.25 mg capsule 1.25 mg PO DAILY 12/17/22 [History Last Taken Unknown] apixaban 5 mg tablet (Eliquis) 5 mg PO BID 03/21/23 [History Last Taken Unknown] meclizine 25 mg tablet 25 mg PO BID PRN motion sickness #14 tabs 03/21/23 [Rx Last Taken Unknown] Allergy/AdvReac Type Severity Reaction Status Date / Time meperidine [From Demerol] Allergy Vomiting Verified 03/24/23 07:48 tioconazole Allergy Itching Verified 03/24/23 07:48 [From Monistat 1 (tioconazole)] Family History (Updated 03/21/23 @ 14:21 by Paloma Nieto) Other Breast cancer Cancer Parkinson disease Surgical History History of cystoscopy Social History household members: spouse Smoking Status: Never smoker alcohol intake: current alcohol intake frequency: a few times a month substance use type: does not use ROS ROS ED ROS Narrative Past medical history: DVT Medications: Reviewed Social history: Noncontributory Review of systems: Musculoskeletal: Right calf pain Skin: No abrasions or lacerations Neurological: No weakness or paresthesias Hematologic: No easy bleeding or easy bruising EXAM Physical Exam Narrative Exam Narrative: Physical exam General: Patient does not appear in significant distress . Cardiovascular: Normal distal pulses Back: Nontender, Normal Inspection. Extremities: Slight tenderness proximal calf region. No signs of infection. Full strength and sensation. Negative Marko Skin: No abrasions, no lacerations Neurological: Normal strength and sensation Const Vital Signs: 03/24/23 07:48 Temperature 97.3 F L Temperature Source Temporal Pulse Rate 67 Respiratory Rate 16 Blood Pressure 130/81 H Blood Pressure Mean 97 Pulse Ox 97 Oxygen Delivery Method Room Air MDM MDM MDM Narrative Medical decision making narrative: Patient's work-up is unremarkable. There is no evidence of DVT. Since there is no trauma I do not believe an x-ray is needed. There is no signs of infection. She is reassured her pain is controlled I will discharge her in stable condition. Discharge Plan Triage Chief Complaint: Lower Extremity Injury ED Provider: Eyal Molina Dx/Rx/DC Orders Clinical Impression: History of deep vein thrombosis, Calf pain Instructions: RICE Prescriptions: No Action Eliquis 5 mg tablet 5 mg PO BID meclizine 25 mg tablet 25 mg PO BID PRN (Reason: motion sickness) Qty: 14 0RF topiramate 50 MG tablet 100 mg PO BID Patient Comments: nebivolol [Bystolic] 5 MG tablet 20 mg PO DAILY Patient Comments: eletriptan [Relpax] 40 MG tablet 40 mg PO PRN PRN (Reason: Headache) Patient Comments: Women's Multivitamin w-Biotin 1 EACH tablet,chewable 1 ea PO DAILY cranberry 400 mg Capsule 400 mg PO DAILY nitrofurantoin macrocrystal 50 mg capsule 50 mg PO DAILY ramipril 1.25 mg capsule 1.25 mg PO DAILY Primary Care Provider: Jason Perez Referrals: Jason Perez MD [Primary Care Provider] - 3-5 Days Disposition Disposition: Home, Self Care
== END 2023-03-24 09:53 | disposition home or self-care (01) ==
PROVIDERS: Emergency Provider Emergency Medicine; PCP Family Medicine; Visit Provider Emergency Medicine
DX: M79.661 Pain in right lower leg (principal); I10 Essential (primary) hypertension; Z86.718 Personal history of other venous thrombosis and embolism
CPT/HCPCS: 93971; 99282

== ENCOUNTER → 2023-08-09 | Outpatient (CLI) | payer OTHER, SELFPAY ==
[2023-08-09 15:59] LABS: Anion Gap 8 (5-15); BUN 30 mg/dL (7-18); BUN/Creat Ratio 22.6 RATIO (10-20); Calcium,Total 9.2 mg/dL (8.5-10.1); Chloride 110 mmol/L (98-107); Creatinine, Serum 1.33 mg/dL (0.55-1.02); EST Glomerular Filtration Rate 43 mL/min (>60); Est Glom Filt Rate - Afr Amer 52 mL/min (>60); Glucose 81 mg/dL (74-106); Potassium 3.5 mmol/L (3.5-5.1); Sodium Level 141 mmol/L (136-145)
== END | disposition home or self-care (01) ==
PROVIDERS: PCP Family Medicine; Referring Provider Family Medicine; Visit Provider Family Medicine
DX: N18.30 Chronic kidney disease, stage 3 unspecified (principal)
CPT/HCPCS: 36415; 80048

== ENCOUNTER → 2024-09-16 | Outpatient (CLI) | payer OTHER, SELFPAY ==
--- NOTE | 2024-09-16 12:53 | VDLE_ITS ---
Reason For Study Reason For Study: RLE PAIN RIGHT LEFT GSV is normal. CFV is compressible, spontaneous, phasic, competent, CFV is compressible, spontaneous, phasic, competent and demonstrates normal augmentation. and demonstrates normal augmentation. FV is compressible, spontaneous, phasic, competent and demonstrates normal augmentation. POP V is compressible, spontaneous, phasic, competent and demonstrates normal augmentation. T/P Trunk is compressible. PTV is compressible. RT PerV is compressible. Soleus V is DILATED & NONCOMPRESSIBLE with bright intraluminal echoes present C/W acute on chronic DVT. Procedure This is a venous duplex using B-mode, color flow and spectral Doppler. Exam performed in department. A preliminary report was called and/or faxed to Dr. Perez's office @ 13:40. Office will call patient with instructions. VL/Venous Duplex US, Unilateral Interpretation Summary Acute on chronic deep vein thrombosis noted in the right soleus vein. Ordering Physician: Jason Perez Referring Physician: Jason Perez Performed By: Lin Tucker, KANE, RVT
== END | disposition home or self-care (01) ==
LOC: CVS 12:47
PROVIDERS: PCP Family Medicine; Referring Provider Family Medicine; Visit Provider Family Medicine
DX: M79.606 Pain in leg, unspecified (principal)
CPT/HCPCS: 93971

== ENCOUNTER → 2024-09-18 | Outpatient (CLI) | payer OTHER, SELFPAY ==
[2024-09-18 15:22] LABS: Bacteria 0 SEEN /hpf (None Seen); Mucous, Urine 0 SEEN /hpf (<or=2+)
[2024-09-18 17:56] LABS: Erythrocyte Sedimentation Rate 6 mm/hr (0-30)
[2024-09-18 18:00] LABS: Absolute Lymphocyte Count 1.56 X10^3/uL (0.83-4.51); Absolute Neutrophil Count 4.1 X10^3/uL (2.0-7.7); Basophil# 0.05 X10^3/uL; Basophil% 0.8 % (0-1); Eosinophil# 0.43 X10^3/uL; Eosinophils% 6.6 % (0-5); Hematocrit 40.1 % (37-47); Hemoglobin 13.2 g/dL (12.0-15.0); Lymphocyte # 1.56 X10^3/ul (0.83-4.51); Lymphocyte % 23.9 % (19-41); Mean Corp Hgb Conc 32.9 g/dL (32-36); Mean Corpuscular Hgb 31.7 pg (27.0-32.0); Mean Corpuscular Volume 96.4 fL (81-99); Mean Platelet Vol. 10.8 fl (6.2-12.0); Monocyte# 0.39 X10^3/uL; NRBC Flagged by Analyzer 0 % (0-5); Neutrophil # 4.08 X10^3/uL (2.7-7.7); Neutrophil % 62.5 % (47-70); Platelet Count 238 K/mm3 (150-450); RBC Distribution Width CV 12.5 % (11.6-14.6); RBC Distribution Width SD 44.5 fl (35.1-43.9); Red Blood Count 4.16 M/mm3 (4.2-5.4); White Blood Count 6.5 K/mm3 (4.4-11.0)
[2024-09-18 18:25] LABS: ALB/GLOB Ratio 1.7 RATIO (0.9-2.4); AST(SGOT) 23 U/L (<=31); Alanine Aminotransfer ALT/SGPT 13 U/L (<=34); Albumin, Serum 4.4 g/dL (3.4-4.8); Alkaline Phosphatase 125 U/L (35-104); Anion Gap 11 (5-15); BUN 27 mg/dL (4-19); BUN/Creat Ratio 21.3 RATIO (10-20); Calcium,Total 9.7 mg/dL (7.6-11.0); Carbon Dioxide 24.1 mmol/L (21.0-32.0); Chloride 109 mmol/L (98-108); Creatinine, Serum 1.25 mg/dL (0.70-1.20); EST Glomerular Filtration Rate 49 (>60); Globulin 2.7 g/dL (2.2-4.2); Glucose 84 mg/dL (70-99); Potassium 3.9 mmol/L (3.3-5.1); Protein, Total 7.1 g/dL (5.9-8.4); Sodium Level 144 mmol/L (133-145); Total Bilirubin 0.19 mg/dL (0.00-1.30)
[2024-09-18 18:40] LABS: Microalbumin,Random Urine 64.6 mg/L (NO RANGE EST.); Microalbumin:Creatinine Ratio 336.5 mg/g CRE
[2024-09-19 18:50] LABS: Color, Urine Yellow (Yellow); Glucose, Dipstick Normal (Normal); Ketone-Dipstick Negative (Negative); Leukocyte Esterase-Dipstick 25 /ul (Negative); Nitrite-Dipstick Negative (Negative); Occult Blood-Urine 250 /ul (Negative); Protein-Dipstick 30 mg/dl (Negative); Urine Bilirubin Dipstick Negative (Negative); Urine Clarity Cloudy (Clear); Urine Urobilinogen Normal (Normal)
[2024-09-19 19:13] LABS: White Blood Cells 10-25 SEEN /hpf (0-5)
[2024-09-19 19:14] LABS: Calcium Oxalate Crystals Ur 1+ /hpf (<or=2+); Red Blood Cells-Urine 50-100 SEEN /hpf (0-5); Squamous Epithelial Cells - UA 0-5 SEEN /hpf (5-10)
[2024-09-19 19:15] LABS: Amorphous Sediment 2+ URATE
[2024-09-23 18:08] LABS: ANTINUCLEAR ANTIBODIES DIRECT Negative (Negative); Anti-Nuclear Antibody Test Negative (.); HOMOCYSTEINE 13.8 umol/L (0.0-17.2)
== END | disposition home or self-care (01) ==
LOC: MFPLAB 15:19
PROVIDERS: PCP Family Medicine; Referring Provider Family Medicine; Visit Provider Family Medicine
DX: N18.31 Chronic kidney disease, stage 3a (principal); I82.401 Acute embolism and thrombosis of unspecified deep veins of right lower extremity
CPT/HCPCS: 36415; 80053; 81001; 81291; 82043; 82570; 83090; 84165; 85025; 85652; 86038; 86147; 86162

== ENCOUNTER 2024-10-07 13:18 | Emergency (ER) | payer OTHER, SELFPAY ==
[2024-10-07 13:19] VITALS: BP 149/64; PULSE 61; RESP 18; TEMP 36.4; O2SAT 100; BMI 26.5
[2024-10-07 14:14] LABS: Mucous, Urine 0 SEEN /hpf (<or=2+)
[2024-10-07 14:18] LABS: Absolute Lymphocyte Count 1.49 X10^3/uL (0.83-4.51); Absolute Neutrophil Count 3.2 X10^3/uL (2.0-7.7); Basophil# 0.05 X10^3/uL; Basophil% 0.9 % (0-1); Eosinophil# 0.57 X10^3/uL; Hematocrit 41.6 % (37-47); Hemoglobin 13.9 g/dL (12.0-15.0); Lymphocyte # 1.49 X10^3/ul (0.83-4.51); Lymphocyte % 26.2 % (19-41); Mean Corp Hgb Conc 33.4 g/dL (32-36); Mean Corpuscular Hgb 32.3 pg (27.0-32.0); Mean Corpuscular Volume 96.5 fL (81-99); Monocyte# 0.32 X10^3/uL; Monocyte% 5.6 % (0-10); NRBC Flagged by Analyzer 0 % (0-5); Neutrophil # 3.23 X10^3/uL (2.7-7.7); Neutrophil % 56.8 % (47-70); Platelet Count 191 K/mm3 (150-450); RBC Distribution Width CV 12.8 % (11.6-14.6); RBC Distribution Width SD 45.3 fl (35.1-43.9); Red Blood Count 4.31 M/mm3 (4.2-5.4); White Blood Count 5.7 K/mm3 (4.4-11.0)
[2024-10-07 14:24] LABS: Glucose, Dipstick Normal (Normal); Ketone-Dipstick Negative (Negative); Leukocyte Esterase-Dipstick 500 /ul (Negative); Nitrite-Dipstick Negative (Negative); Occult Blood-Urine 10 /ul (Negative); Protein-Dipstick 15 mg/dl (Negative); Specific Gravity, Urine 1.015 (1.002-1.030); Urine Bilirubin Dipstick Negative (Negative); Urine Urobilinogen Normal (Normal)
[2024-10-07 14:25] LABS: Color, Urine Yellow (Yellow); Urine Clarity Clear (Clear)
[2024-10-07 14:51] LABS: Red Blood Cells-Urine 0-5 SEEN /hpf (0-5); Squamous Epithelial Cells - UA 0-5 SEEN /hpf (5-10); White Blood Cells 50-100 SEEN /hpf (0-5)
[2024-10-07 14:52] LABS: Bacteria 1+ /hpf (None Seen); Transitional Epithelial - Ur 0-5 SEEN /hpf (0-5)
[2024-10-07 14:58] LABS: Anion Gap 10 (5-15); BUN 21 mg/dL (4-19); BUN/Creat Ratio 19.8 RATIO (10-20); Calcium,Total 9.5 mg/dL (7.6-11.0); Carbon Dioxide 23.7 mmol/L (21.0-32.0); Chloride 111 mmol/L (98-108); Creatinine, Serum 1.04 mg/dL (0.70-1.20); EST Glomerular Filtration Rate 61 (>60); Estimated Creatinine Clearance 54.57 ml/min (50-250); Glucose 86 mg/dL (70-99); Potassium 4.3 mmol/L (3.3-5.1); Sodium Level 145 mmol/L (133-145)
--- NOTE | 2024-10-07 14:59 | EX.ED.DYSGE1 ---
HPI History of Present Illness Chief Complaint: Flank Pain Detail of Chief Complaint: Intermittent left flank pain with urinary symptoms Informant: patient Onset/Context/Timing Onset: Days Context: Sudden Onset Timing: Intermittent Quality: Initially flank pain. Presently she has none Location: Does endorse frequency urgency. Current Severity: Gone Maximum Severity: Moderate Worsened by: Nothing Relieved by: Not applicable Associated Symptoms Associated Symptoms: Urinary symptoms Narrative Narrative: Patient is a 59-year-old woman. She has history of kidney stones, urinary tract infection, ureterolithiasis and kidney/renal insufficiency. She presents with left flank pain. She also reports pain on the right flank area. The pain on the right flank was worse. She believes she may have passed the stone. She denies fever, chills night sweats. She denies abdominal pain, nausea, vomiting or diarrhea. She denies trauma. She has not noted any rash or lesions. Prior similar symptoms: Yes (Kidney stone and infection) Recent Illness/Hospitalization: No PFSH PFS Medical History BPPV (benign paroxysmal positional vertigo) Left ear pain Anxiety Alcohol use Arthritis Low iron Non-smoker Hypertension Migraines Kidney calculi Home Medications ?Medication ?Instructions ?Recorded ?Last Taken ?Type nebivolol 5 mg tablet (Bystolic) 20 mg PO DAILY 01/31/16 03/14/21 07:00 History topiramate 50 mg tablet 100 mg PO BID 01/31/16 03/14/21 07:00 History eletriptan 40 mg tablet (Relpax) 40 mg PO PRN PRN Headache 10/28/16 03/13/21 History multivit with minerals-folic acid 1 ea PO DAILY 11/10/16 03/13/21 History 200 mcg-biotin 300 mcg chew tablet (Women's Multivitamin with Biotin) cranberry fruit 400 mg capsule 400 mg PO DAILY 12/23/20 03/13/21 History nitrofurantoin macrocrystal 50 mg 50 mg PO DAILY 12/17/22 Unknown History capsule ramipril 1.25 mg capsule 1.25 mg PO DAILY 12/17/22 Unknown History apixaban 5 mg tablet (Eliquis) 5 mg PO BID 03/21/23 Unknown History meclizine 25 mg tablet 25 mg PO BID PRN motion sickness 10/18/23 Unknown Rx #14 tabs nitrofurantoin 100 mg PO Q12 #10 CAPSULES 10/07/24 Unknown Rx monohydrate/macrocrystals 100 mg capsule Allergy/AdvReac Type Severity Reaction Status Date / Time meperidine (From Demerol) Allergy Vomiting Verified 10/07/24 13:19 tioconazole (From Monistat 1 Allergy Itching Verified 10/07/24 13:19 (tioconazole)) Family History Other Breast cancer Cancer Parkinson disease Surgical History History of cystoscopy Social History household members: spouse housing: house Smoking Status: Never smoker alcohol intake: current alcohol intake frequency: a few times a month substance use type: does not use ROS ROS ED Constitutional Constitutional ED: Denies chills, fever(s), subjective, sweats or weight loss ENT ENT ED: Denies rhinorrhea or sore throat Cardiovascular Cardiovascular: Denies chest pain, orthopnea, palpitations or paroxysmal nocturnal dyspnea Respiratory/Chest Respiratory/Chest: Denies cough, dyspnea, dyspnea on exertion, orthopnea or paroxysmal nocturnal dyspnea Gastrointestinal Gastrointestinal: Reports abdominal pain and nausea; Denies constipation, diarrhea, melena or vomiting Genitourinary Genitourinary ED: Reports urinary frequency and other Details: And urgency. ; Denies dysuria or hematuria Musculoskeletal Musculoskeletal: Denies arthralgias or myalgias Integumentary Denies Abrasions or rash Neurologic Neurologic: Denies headache(s), paresthesias or weakness Hematologic/Lymphatic Hematologic/Lymphatic: Reports systems reviewed and no addt'l complaints, except as documented EXAM Physical Exam Const Vital Signs: 10/07/24 13:19 Temperature 97.5 F L Temperature Source Oral Pulse Rate 61 Respiratory Rate 18 Blood Pressure 149/64 H Blood Pressure Mean 92 Pulse Ox 100 Oxygen Delivery Method Room Air Positive well nourished and well developed General Appearance ED: well developed and NAD; Negative for pallor HEENT Reports moist mucous membranes HEENT Narrative: Has atraumatic no cephalic. Ears normal. Nares patent Eyes PERRL General Eye ED: Negative for pale conjunctiva or scleral icterus Neck no lymphadenopathy, supple and no JVD Resp normal respiratory effort and clear to auscultation bilaterally Cardio regular rate, regular rhythm, S1 normal heart sound, S2 normal heart sound and no murmurs GI normal to inspection, nondistended, normoactive bowel sounds, non-tender, non-distended and no masses; Negative for hepatosplenomegaly GI Narrative: Possible minimal suprapubic discomfort to deep palpation. Back/Spine no CVA tenderness Extremity normal to inspection Extremity Narrative: Patient does have pedal edema. There is no other abnormalities noted. She does have some bruising noted. She is on Eliquis for DVT that was diagnosed right lower extremity. General Extremety ED: Yes edema; Negative for tenderness General Extremity: edema Neuro oriented x3, CN's II-XII intact bilaterally and no sensory deficits noted Sensorium / Orientation: alert Motor Exam: strength 5/5 throughout Psych mental status grossly normal Skin no rashes or lesions noted, no wounds and skin turgor normal Skin Narrative: Patient has bruising of her legs due to the fact that she is on anticoagulant. General Skin Exam: Negative for jaundice or pallor MDM MDM MDM Narrative Medical decision making narrative: Differential diagnosis is cystitis, pyelonephritis, obstructing ureteral stone with or without infection. Will obtain CBC, BMP UA. Depending on UA results we will determine if patient needs imaging since presently she is pain-free. Prior records were reviewed. She was recently diagnosed with DVT of the soleus muscle September 17. She is present anticoagulant. History & Record Review Additional record(s) reviewed:: Prior outpatient record (She was seen by Dr. Katarina Guerin for kidney stone in March 2021.) and Prior ED visit (Last ER visit was March 2023 for calf pain. She was seen [id number] for ear pain. In December 2022 she was seen for scalp laceration.) Lab Data Labs: Laboratory Results - last 24 hr 10/07/24 10/07/24 13:24 13:36 WBC 5.7 RBC 4.31 Hgb 13.9 Hct 41.6 MCV 96.5 MCH 32.3 H MCHC 33.4 RDW Std Deviation 45.3 H RDW Coeff of Trever 12.8 Plt Count 191 MPV 11.0 Immature Gran % (Auto) 0.500 Neut % (Auto) 56.8 Lymph % (Auto) 26.2 [place] % (Auto) 5.6 Eos % (Auto) 10.0 H Baso % (Auto) 0.9 Absolute Neuts (auto) 3.2 Absolute Lymphs (auto) 1.49 Nucleated RBC % 0 Sodium 145 Potassium 4.3 Chloride 111 H Carbon Dioxide 23.7 Anion Gap 10 BUN 21 H Creatinine 1.04 Estim Creat Clear Calc 54.57 Est GFR (MDRD) Non-Af 61 BUN/Creatinine Ratio 19.8 Glucose 86 Calcium 9.5 Urine Color Yellow Urine Clarity Clear Urine pH 6.0 Ur Specific Velpen 1.015 Urine Protein 15 H Urine Glucose (UA) Normal Urine Ketones Negative Urine Occult Blood 10 H Urine Nitrite Negative Urine Bilirubin Negative Urine Urobilinogen Normal Ur Leukocyte Esterase 500 H Urine RBC 0-5 SEEN Urine WBC 50-100 SEEN Ur Squamous Epith Cells 0-5 SEEN Ur Transition Epith Cell 0-5 SEEN Urine Bacteria 1+ Urine Mucus 0 SEEN Treatment and Re-Evaluation :: Since patient presently has no flank pain no CVA tenderness and minimal suprapubic tenderness with mild urinary symptoms and pyuria with bacteria we will treat for UTI. Culture was not sent since she has not had a urinary tract infection for some time. Discharge Plan Triage Chief Complaint: Flank Pain ED Provider: Vipul Hanley Dx/Rx/DC Orders Clinical Impression: Urinary tract infection, Bilateral flank pain, History of renal calculi, Elevated blood-pressure reading without diagnosis of hypertension, Current use of anticoagulant therapy, Acute deep vein thrombosis (DVT) of distal end of right lower extremity, Pedal edema Instructions: ED Peripheral Edema, Bilateral, ED UTIs Women Prescriptions: New nitrofurantoin monohyd/m-cryst 100 mg capsule 100 mg PO Q12 Qty: 10 0RF No Action Eliquis 5 mg tablet 5 mg PO BID meclizine 25 mg tablet 25 mg PO BID PRN (Reason: motion sickness) Qty: 14 0RF topiramate 50 MG tablet 100 mg PO BID Patient Comments: nebivolol [Bystolic] 5 MG tablet 20 mg PO DAILY Patient Comments: eletriptan [Relpax] 40 MG tablet 40 mg PO PRN PRN (Reason: Headache) Patient Comments: Women's Multivitamin w-Biotin 1 EACH tablet,chewable 1 ea PO DAILY cranberry fruit 400 mg Capsule 400 mg PO DAILY nitrofurantoin macrocrystal 50 mg capsule 50 mg PO DAILY ramipril 1.25 mg capsule 1.25 mg PO DAILY Primary Care Provider: Jason Perez Referrals: Jason Perez MD [Primary Care Provider] - 3-5 Days if not improving Print Language: [place] Disposition Disposition: Home, Self Care
[2024-10-07 15:18] VITALS: BP 118/70; PULSE 69; RESP 18; O2SAT 98
[2024-10-07 15:41] VITALS: BP 112/59; PULSE 79; RESP 14; TEMP 36.8; O2SAT 100
== END 2024-10-07 15:41 | disposition home or self-care (01) ==
PROVIDERS: Emergency Provider Emergency Medicine; PCP Family Medicine; Visit Provider Emergency Medicine
DX: N39.0 Urinary tract infection, site not specified (principal); I82.4Z1 Acute embolism and thrombosis of unspecified deep veins of right distal lower extremity; R10.9 Unspecified abdominal pain; R03.0 Elevated blood-pressure reading, without diagnosis of hypertension; Z87.442 Personal history of urinary calculi; Z79.01 Long term (current) use of anticoagulants; R60.0 Localized edema; Z87.440 Personal history of urinary (tract) infections
CPT/HCPCS: 80048; 81001; 85025; 99283

== ENCOUNTER → 2024-10-16 | Outpatient (CLI) | payer OTHER, SELFPAY ==
--- NOTE | 2024-10-16 12:05 | US_ITS ---
PROCEDURE: KIDNEY AND BLADDER 10/16/2024 REASON FOR EXAM: HEMATURIA TECHNIQUE: Bilateral renal ultrasound. FINDINGS: RIGHT Kidney Size: 9.6 cm x 3.8 cm x 4.4 cm Volume: 83.77 mL Cortical Thickness (if discernible): 11 mm (>6mm is normal) There is a 4 mm x 5 mm x 5 mm nonobstructive intrarenal calculus. LEFT Kidney Size: 9.9 cm x 4 cm x 3.9 cm Volume: 82 mL Cortical Thickness (if discernible): 10 mm (>6mm is normal) There is a 6 mm x 5 mm x 3 mm intrarenal calculus. The bladder is not well distended for assessment. Incidental note is made of a 1.2 cm x 1.2 cm x 0.8 cm cyst in the right lobe of the liver. US/Kidney and Bladder IMPRESSION: Small bilateral nonobstructive intrarenal calculi. Reading Location: [id number]
== END | disposition home or self-care (01) ==
LOC: CVS 12:04
PROVIDERS: PCP Family Medicine; Referring Provider Family Medicine; Visit Provider Family Medicine
DX: R31.9 Hematuria, unspecified (principal)
CPT/HCPCS: 76770

== ENCOUNTER → 2025-03-31 | Outpatient (CLI) | payer OTHER, SELFPAY ==
--- NOTE | 2025-03-31 12:22 | VDLE_ITS ---
Reason For Study VL/Venous Duplex US, Unilateral
== END | disposition home or self-care (01) ==
LOC: CVS 12:16
PROVIDERS: PCP Family Medicine; Referring Provider Family Medicine; Visit Provider Family Medicine
DX: I82.409 Acute embolism and thrombosis of unspecified deep veins of unspecified lower extremity (principal)
CPT/HCPCS: 93971

== ENCOUNTER 2025-04-27 19:40 | Emergency (ER) | payer OTHER, SELFPAY ==
[2025-04-27 19:42] VITALS: BP 154/86; PULSE 76; RESP 16; TEMP 36.8; O2SAT 98; BMI 25.7
--- OUTSIDE RECORDS SUMMARY | 2025-04-27 20:20 | XMS RPT_ITS | CCD ---
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 right flank was worse. She believes she may have passed the stone. She denies fever, chills night sweats. She denies abdominal pain, nausea, vomiting or diarrhea. She denies trauma. She has not noted any rash or lesions. Prior similar symptoms: Yes (Kidney stone and infection) Recent Illness/Hospitalization: No PFSH PFSH Medical History BPPV (benign paroxysmal positional vertigo) Left ear pain Anxiety Alcohol use Arthritis Low iron Non-smoker Hypertension Migraines Kidney calculi Home Medications ???Medication ???Instructions ???Recorded ???Last Taken ???Type nebivolol 5 mg tablet (Bystolic) 20 mg PO DAILY 01/31/16 03/14/21 0 7:00 History topiramate 50 mg tablet 100 mg PO BID 01/31/16 03/14/21 07 :00 History eletriptan 40 mg tablet (Relpax) 40 mg PO PRN PRN Headache 10/28/16 03/13/21 History multivit with minerals-folic acid 1 ea PO DAILY 11/10/16 03/13/21 H istory 200 mcg-biotin 300 mcg chew tablet (Women's Multivitamin with Biotin) cranberry fruit 400 mg capsule 400 mg PO DAILY 12/23/20 03/13/21 History nitrofurantoin macrocrystal 50 mg 50 mg PO DAILY 12/17/22 Unknown H istory capsule ramipril 1.25 mg capsule 1.25 mg PO DAILY 12/17/22 Unknown History apixaban 5 mg tablet (Eliquis) 5 mg PO BID 03/21/23 Unknown Histo ry meclizine 25 mg tablet 25 mg PO BID PRN motion sickness 1 Unknown Rx #14 tabs nitrofurantoin 100 mg PO Q12 #10 CAPSULES 5 Unknown Rx monohydrate/macrocrystals 100 mg capsule Allergy/AdvReac Type Severity Reaction Status Date / Time meperidine (From Demerol) Allergy Vomiting Verified 10/07/24 13:19 tioconazole (From Monistat 1 Allergy Itching Verified 10/07/24 13:19 (tioconazole)) Family History Other Breast cancer Cancer Parkinson disease Surgical History History of cystoscopy Social History household members: spouse housing: house Smoking Status: Never smoker alcohol intake: current alcohol intake frequency: a few times a month substance use type: does not use ROS ROS ED Constitutional Constitutional ED: Denies chills, fever(s), subjective, sweats or weight loss ENT ENT ED: Denies rhinorrhea or sore throat Cardiovascular Cardiovascular: Denies chest pain, orthopnea, palpitations or paroxysmal nocturnal dyspnea Respiratory/Chest Respiratory/Chest: Denies cough, dyspnea, dyspnea on exertion, orthopnea or paroxysmal nocturnal dyspnea Gastrointestinal Gastrointestinal: Reports abdominal pain and nausea; Denies constipation, diarrhea, melena or vomiting Genitourinary Genitourinary ED: Reports urinary frequency and other Details: And urgency. ; Denies dysuria or hematuria Musculoskeletal Musculoskeletal: Denies arthralgias or myalgias Integumentary Denies Abrasions or rash Neurologic Neurologic: Denies headache(s), paresthe (more content not included)... Normal [facility] Eosinophil percentageOrdered By: Vipul Hanley on 10-07-2024 Eosinophils/100 WBC (Bld) 10.0 % High 0-5 [facility] Erythrocyte distribution wid th ratioOrdered By: Vipul Hanley on 10-07-2024 Erythrocyte distribution width (RBC) [Ratio] 12.8 % 11.6-14.6 [facility] Erythrocyte distribution wid th standard deviationOrdered By: Vipultyler Hanley on 10-07-2024 Erythrocyte distribution width (RBC) [Ratio] 45.3 fl High 35.1-43.9 [facility] Glomerular filtration rate ( GFR) estimation/1.73 sq m using serum, plasma, or whole bOrdered By: Vipul Hanley on 10-07-2024 GFR/1.73 sq M.predicted among non-blacks MDRD (S/P/Bld) [Vol rate/Area] 61 mL/min/{1.73_m2} >60 [facility] Comment on above: mL/min/1.73m2 CKD-EP I Creatinine Equation (2020) Hematocrit Auto (Bld) [Volum e fraction]Ordered By: Vipul Hanley on 10-07-2024 Hematocrit (Bld) [Volume fraction] 41.6 % 37-47 [facility] Hemoglobin measurementOrdere d By: Vipul Hanley on 10-07-2024 Hemoglobin (Bld) [Mass/Vol] 13.9 g/dL 12.0-15.0 [facility] Immature granulocytes/100 WB C Auto (Bld)Ordered By: Vipul Hanley on 10-07-2024 Immature granulocytes/100 WBC (Bld) 0.500 % 0.0-0.9 [facility] Comment on above: IG% - Immature Granu locytes (promyelocytes, myelocytes and metamyelocytes) > 1% indicates that a LEFT SHIFT is Present. Ketones Test strip Ql (U)Ord ered By: Vipul Hanley on 10-07-2024 Ketones Ql (U) Negative Negative [facility] MCV (mean corpuscular volume ) determinationOrdered By: Vipul Hanley on 10-07-2024 MCV (RBC) [Entitic vol] 96.5 fL 81-99 [facility] Mean corpuscular hemoglobin (MCH) determinationOrdered By: Vipul Hanley on 10-07-2024 MCH (RBC) [Entitic mass] 32.3 pg High 27.0-32.0 [facility] Mean corpuscular hemoglobin concentration (MCHC) determinationOrdered By: Vipul Hanley on 10-07-2024 MCHC (RBC) [Mass/Vol] 33.4 g/dL 32-36 [facility] Mean platelet volume determi nationOrdered By: Vipul Hanley on 10-07-2024 Platelet mean volume (Bld) [Entitic vol] 11.0 fL 6.2-12.0 [facility] Microscopic analysis of urin e for red blood cells (RBC)Ordered By: Vipul Hanley on 10-07-2024 Microscopic analysis of urine for red blood cells (RBC) 0-5 SEEN /hpf 0-5 [facility] Monocyte percentageOrdered B y: Vipul Hanley on 10-07-2024 Monocytes/100 WBC (Bld) 5.6 % 0-10 [facility] Mucus LM Ql (Urine sed)Order ed By: Vipul Hanley on 10-07-2024 Mucus Ql (Urine sed) 0 SEEN /hpf [facility] Neutrophil percentageOrdered By: Vipul Hanley on 10-07-2024 Neutrophils/100 WBC (Bld) 56.8 % 47-70 [facility] Nitrite Test strip Ql (U)Ord ered By: Vipul Hanley on 10-07-2024 Nitrite Ql (U) Negative Negative [facility] Nucleated red blood cell per centageOrdered By: Vipul Hanley on 10-07-2024 Nucleated RBC/100 WBC (Bld) [Ratio] 0 % 0-5 [facility] Platelet countOrdered By: Aj Hanley on 10-07-2024 Platelets (Bld) [#/Vol] 191 10*3/uL 150-450 [facility] Potassium measurement (mass/ volume)Ordered By: Vipul Hanley on 10-07-2024 Potassium (Unsp spec) [Mass/Vol] 4.3 mmol/L 3.3-5.1 [facility] Protein Test strip Ql (U)Ord ered By: Vipul Hanley on 10-07-2024 Protein Ql (U) 15 mg/dl High Negative [facility] RBC Auto (Bld) [#/Vol]Ordere d By: Vipul Hanley on 10-07-2024 RBC (Bld) [#/Vol] 4.31 10*6/uL 4.2-5.4 [facility] Serum creatinine measurement (mass/volume)Ordered By: Vipul Hanley on 10-07-2024 Creatinine [Mass/Vol] 1.04 mg/dL 0.70-1.20 [facility] Serum glucose measurement (m ass/volume)Ordered By: Vipul Hanley on 10-07-2024 Glucose [Mass/Vol] 86 mg/dL 70-99 [facility] Serum or plasma calcium josh urement (mass/volume)Ordered By: Vipul Hanley on 10-07-2024 Calcium [Mass/Vol] 9.5 mg/dL 7.6-11.0 [facility] Serum or plasma urea nitroge n measurement (mass/volume)Ordered By: Vipul Hanley on 10-07-2024 Urea nitrogen [Mass/Vol] 21 mg/dL High 4-19 [facility] Sodium levelOrdered By: Vipul Hanley on 10-07-2024 Sodium [Moles/Vol] 145 mmol/L 133-145 [facility] Squamous epithelial cells de tection in urine sediment by light microscopyOrdered By: Vipul Hanley on 10-07-2024 Epithelial cells.squamous LM Ql (Urine sed) 0-5 SEEN /hpf 5-10 [facility] Transitional cells detection in urine sediment by light microscopyOrdered By: Vipul Hanley on 10-07-2024 Transitional cells LM Ql (Urine sed) 0-5 SEEN /hpf 0-5 [facility] Urinalysis, Completeon 10-07 BACTERIA 1+ /hpf Normal None Seen [facility] Comment on above: Order Comment: CLEAN CATCH Performed By: #### L 400.0001 #### [facility] [address] [place], [address] EPI,TRANSITION 0-5 SEEN Normal 0-5 [facility] Comment on above: Order Comment: CLEAN CATCH Performed By: #### L 400.0001 #### [facility] [address] [place], [address] EPI,SQUAMOUS 0-5 SEEN Normal 5-10 [facility] Comment on above: Order Comment: CLEAN CATCH Performed By: #### L 400.0001 #### [facility] [address] [place], [address] RBC 0-5 SEEN Normal 0-5 [facility] Comment on above: Order Comment: CLEAN CATCH Performed By: #### L 400.0001 #### [facility] [address] [place], [address] WBC 50-100 SEEN Normal 0-5 [facility] Comment on above: Order Comment: CLEAN CATCH Performed By: #### L 400.0001 #### [facility] [address] [place], [address] Mucus Ql (Urine sed) [address] [facility] Comment on above: Order Comment: CLEAN CATCH Performed By: #### L 400.0001 #### [facility] [address] [place], [address] Urine clarityOrdered By: Vipul Hanley on 10-07-2024 Clarity (U) Clear Clear [facility] Urine color determinationOrd ered By: Vipul Hanley on 10-07-2024 Color (U) Yellow Yellow [facility] Urine glucose detectionOrder ed By: Vipul Hanley on 10-07-2024 Glucose Ql (U) Normal mg/dl Normal [facility] Urine leukocyte esterase det ection by dipstickOrdered By: Vipul Hanley on 10-07-2024 Leukocyte esterase Test strip Ql (U) 500 /ul High Negative [facility] Urine pHOrdered By: Vipul scott on 10-07-2024 pH (U) 6.0 [pH] 5.0 - 8.0 [facility] Urine sediment bacteria coun t by microscopy (number/high power field)Ordered By: Vipul Hanley on 10-07-2024 Bacteria LM.HPF (Urine sed) [#/Area] 1 /[HPF] None Seen [facility] Urine specific gravity measu rementOrdered By: Vipultyler Hanley on 10-07-2024 Specific gravity (U) [Rel density] 1.015 1.002-1.03 0 [facility] Urine urobilinogen measureme ntOrdered By: Vipul Hanley on 10-07-2024 Urobilinogen Ql (U) Normal mg/dl Normal [facility] White blood cell (WBC) count Ordered By: Vipultyler Hanley on 10-07-2024 WBC (Bld) [#/Vol] 5.7 10*3/uL 4.4-11.0 [facility] White blood cell countOrdere d By: Vipul Hanley on 10-07-2024 White blood cell count 50-100 SEEN /hpf 0-5 [facility] Anti-Cardiolipin Ab, IgG, Qn on 09-24-2024 ANTICARDIO IgG < 9 Normal 0-14 [facility] Comment on above: Result Comment: Nega tive: <15 Indeterminate: 15 - 20 Low-Med Positive: >20 - 80 High Positive: >80 Performed By: #### L 3100.8415, L803.0600, L3100.3450, L400.0001, L4600.0155, L101.9900, L3100.5600, L4500.0100, L3100.8410, L502.0250, L3100.7950, L100.0100, L3100.5475, L500.4050 ####[facility] [address] [place], [address] Anticardiolipin IgG, IgMon 0 09-24-2024 Anticardio.IgM < 9 Normal 0-12 [facility] Comment on above: Result Comment: Nega tive: <13 Indeterminate: 13 - 20 Low-Med Positive: >20 - 80 High Positive: >80 Performed By: #### L 3100.8415, L803.0600, L3100.3450, L400.0001, L4600.0155, L101.9900, L3100.5600, L4500.0100, L3100.8410, L502.0250, L3100.7950, L100.0100, L3100.5475, L500.4050 ####[facility] [address] [place], [address] Complement CH50on 09-24-2024 COMPLEMENT,CH50 56 U/mL Normal >41 [facility] Comment on above: Result Comment: Age Male Female 1 - 30 days Not Estab. Not Estab. 31 days - 6 months >32 >20 7 months - 17 years >39 >39 >17 years >41 >41 NOTE: The adult (">17 years") reference interval range is used to flag abnormals on this report. If the patient is 17 years old or younger, use the table above to determine out of range values. Performed at: - [employer] [id number] Industrial Sales Engineer: Misti Beck MD, Phone: [phone] Performed at: - [employer] [id number] Industrial Sales Engineer: William Martin PhD, Phone: [phone] Performed at: - [facility] [address], [place] [id number] Industrial Sales Engineer: Ji Bee [facility], Phone: [phone] Performed By: #### L 3100.8415, L803.0600, L3100.3450, L400.0001, L4600.0155, L101.9900, L3100.5600, L4500.0100, L3100.8410, L502.0250, L3100.7950, L100.0100, L3100.5475, L500.4050 ####[facility] [address] [place], [place], [address] Lupus Anticoagulant Compon 0 - aPTT Coag (Bld) [Time] 48.4 s High 0.0-43.[address] [facility] Comment on above: Performed By: #### L 3100.8415, L803.0600, L3100.3450, L400.0001, L4600.0155, L101.9900, L3100.5600, L4500.0100, L3100.8410, L502.0250, L3100.7950, L100.0100, L3100.5475, L500.4050 ####[facility] [address] [place], [place], [address] aPTT Coag (Bld) [Time] 45.6 s High 0.0-40.[address] [facility] Comment on above: Performed By: #### L 3100.8415, L803.0600, L3100.3450, L400.0001, L4600.0155, L101.9900, L3100.5600, L4500.0100, L3100.8410, L502.0250, L3100.7950, L100.0100, L3100.5475, L500.4050 ####[facility] [address] [place], [place], [id number] DILUTE PT (dPT) 48.6 sec High 0.0-47.6 [facility] Comment on above: Performed By: #### L 3100.8415, L803.0600, L3100.3450, L400.0001, L4600.0155, L101.9900, L3100.5600, L4500.0100, L3100.8410, L502.0250, L3100.7950, L100.0100, L3100.5475, L500.4050 ####[facility] [address] [place], [address] dPT Conf. Ratio 0.85 Ratio Normal 0.00-1.34 [facility] Comment on above: Performed By: #### L 3100.8415, L803.0600, L3100.3450, L400.0001, L4600.0155, L101.9900, L3100.5600, L4500.0100, L3100.8410, L502.0250, L3100.7950, L100.0100, L3100.5475, L500.4050 ####[facility] [address] [place], [address] DRVVT 130.6 sec Abnormal 0.0-47.0 [facility] Comment on above: Performed By: #### L 3100.8415, L803.0600, L3100.3450, L400.0001, L4600.0155, L101.9900, L3100.5600, L4500.0100, L3100.8410, L502.0250, L3100.7950, L100.0100, L3100.5475, L500.4050 ####[facility] [address] [place], [address] DRVVT CONFIRM 1.3 ratio Abnormal 0.8-1.2 [facility] Comment on above: Performed By: #### L 3100.8415, L803.0600, L3100.3450, L400.0001, L4600.0155, L101.9900, L3100.5600, L4500.0100, L3100.8410, L502.0250, L3100.7950, L100.0100, L3100.5475, L500.4050 ####[facility] [address] [place], [address] dRVVT MIX 88.5 sec Abnormal 0.0-40.4 [facility] Comment on above: Performed By: #### L 3100.8415, L803.0600, L3100.3450, L400.0001, L4600.0155, L101.9900, L3100.5600, L4500.0100, L3100.8410, L502.0250, L3100.7950, L100.0100, L3100.5475, L500.4050 ####[facility] [address] [place], [place], [id number] HEX PHAS PHOSPH 6 sec Normal 0-11 [facility] Comment on above: Performed By: #### L 3100.8415, L803.0600, L3100.3450, L400.0001, L4600.0155, L101.9900, L3100.5600, L4500.0100, L3100.8410, L502.0250, L3100.7950, L100.0100, L3100.5475, L500.4050 ####[facility] [address] [place], [address] Interpretation Comment: Normal . [facility] Comment on above: Result Comment: Resu lts are consistent with the presence of a lupus anticoagulant. As only persistent lupus anticoagulant (LA) positivity meets laboratory diagnostic criteria for antiphospholipid syndrome, repeat testing in 12 or more weeks is recommended, ideally in the absence of anticoagulant therapy. Important Note: The results of LA testing are not valid for patients receiving heparin, direct Xa inhibitor (e.g., rivaroxaban, apixaban) or direct thrombin inhibitor (e.g., dabigatran) therapy. These drugs may cause false positive LA results but will not interfere with anticardiolipin and beta-2 glycoprotein 1 antibody testing. Performed By: #### L 3100.8415, L803.0600, L3100.3450, L400.0001, L4600.0155, L101.9900, L3100.5600, L4500.0100, L3100.8410, L502.0250, L3100.7950, L100.0100, L3100.5475, L500.4050 ####[facility] [address] [place], [address] THROMBIN TIME 18.9 sec Normal 0.0-23.0 [facility] Comment on above: Performed By: #### L 3100.8415, L803.0600, L3100.3450, L400.0001, L4600.0155, L101.9900, L3100.5600, L4500.0100, L3100.8410, L502.0250, L3100.7950, L100.0100, L3100.5475, L500.4050 ####[facility] [address] [place], [address] MTHFR DNA Varianton 09-25-19 MTHFR DNA Comment Normal . [facility] Comment on above: Result Comment: Resu lt: c.665C>T (p. [id number]), legacy name: [id number] - Not Detected c.1286A>C (p. [id number]), legacy name: [id number] - Detected, heterozygous Interpretation: This result is not associated with an increased risk for hyperhomocysteinemia. See Additional Clinical Information and Comments. Additional Clinical Information: Hyperhomocysteinemia is multifactorial involving genetic, clinical, and environmental risk factors. Reduced enzyme activity of methylenetetrahydrofolate reductase (MTHFR) is a genetic risk factor for hyperhomocysteinemia, particularly when serum folate levels are low. There are two common variants in the MTHFR gene that can decrease enzyme activity; c.665C>T (p. [id number]), legacy name [id number], and c.1286A>C (p. [id number]), legacy name [id number]. These variants do not independently increase risk of conditions related to hyperhomocysteinemia in the absence of elevated homocysteine levels. Measurement of total plasma homocysteine is recommended. Patients should share their MTHFR genotype with physicians who are making decisions regarding chemotherapy treatments that depend on folate, such as methotrexate. Guidelines do not recommend genotyping of these two MTHFR variants in the evaluation of venous thrombosis or obstetric risk due to limited evidence of clinical utility (PMID: 91585093). Comments: Genetic Coordinators are available for health care providers to discuss results at [phone]). Test Details: Variants Analyzed: c.665C>T (p. [id number]), legacy name: [id number] and c.1286A>C (p. [id number]), legacy name: [id number] Methods/Limitations: DNA analysis of the MTHFR gene was performed by PCR amplification followed by restriction enzyme analysis. The diagnostic sensitivity is >99%. Results must be combined with clinical information for the most accurate interpretation. Molecular-based testing is highly accurate, but as in any laboratory test, diagnostic errors may occur. False positive or false negative results may occur for reasons that include genetic variants, blood transfusions, bone marrow transplantation, somatic or tissue-specific mosaicism, mislabeled samples, or erroneous representation of family relationships. This test was developed and its performance characteristics determined by [employer]. It has not been cleared or approved by the Food and Drug Administration. References: Kiko SE, Abdirashid CJ, Isacc HENDERSON. ACMG Practice Guideline: lack of evidence for MTHFR polymorphism testing. Nelda Med. 2013 Jul;15(2):153-6. doi: 10.1038/gim.2012.165. Epub 2012Jun 06. PMID: 04584869. [place] [employer]' Committee on Practice Bulletins-Obstetrics. ACOG Practice Bulletin No. 197: Inherited Thrombophilias in . Obstet Gynecol. 2018 Dec;132(1):e18-e34. doi: 10.1097/AOG.[id number]. Erratum in: Obstet Gynecol. 2018 Mar;132(4):1069. PMID: 43724910. Performed By: #### L 3100.8415, L803.0600, L3100.3450, L400.0001, L4600.0155, L101.9900, L3100.5600, L4500.0100, L3100.8410, L502.0250, L3100.7950, L100.0100, L3100.5475, L500.4050 ####[facility] [address] [place], [place], [id number] MTHFR Reviewed Comment Normal . [facility] Comment on above: Result Comment: Tech nical Component performed at [facility] RT Professional Component performed by: [employer] Oliverio Orta, Ph.D., [facility] Director, Molecular Genetics [address] [place] [address] [place] [address] Performed By: #### L 3100.8415, L803.0600, L3100.3450, L400.0001, L4600.0155, L101.9900, L3100.5600, L4500.0100, L3100.8410, L502.0250, L3100.7950, L100.0100, L3100.5475, L500.4050 ####[facility] [address] [place], [place], [address] Protein Electroph, Son 09-24 Albumin [Mass/Vol] 4.2 g/dL Normal 2.9-4.4 [facility] Comment on above: Performed By: #### L 3100.8415, L803.0600, L3100.3450, L400.0001, L4600.0155, L101.9900, L3100.5600, L4500.0100, L3100.8410, L502.0250, L3100.7950, L100.0100, L3100.5475, L500.4050 ####[facility] [address] [place], [place], [phone] Albumin/Globulin [Mass ratio] 1.7 {ratio} Normal 0.7-1.7 [facility] Comment on above: Performed By: #### L 3100.8415, L803.0600, L3100.3450, L400.0001, L4600.0155, L101.9900, L3100.5600, L4500.0100, L3100.8410, L502.0250, L3100.7950, L100.0100, L3100.5475, L500.4050 ####[facility] [address] [place], [place], [phone] ALPHA-1 GLOBUL 0.2 g/dL Normal 0.0-0.4 [facility] Comment on above: Performed By: #### L 3100.8415, L803.0600, L3100.3450, L400.0001, L4600.0155, L101.9900, L3100.5600, L4500.0100, L3100.8410, L502.0250, L3100.7950, L100.0100, L3100.5475, L500.4050 ####[facility] [address] [place], [place], [phone]) ALPHA-2 GLOBUL 0.6 g/dL Normal 0.4-1.0 [facility] Comment on above: Performed By: #### L 3100.8415, L803.0600, L3100.3450, L400.0001, L4600.0155, L101.9900, L3100.5600, L4500.0100, L3100.8410, L502.0250, L3100.7950, L100.0100, L3100.5475, L500.4050 ####[facility] [address] [place], [phone] BETA GLOBULIN 0.9 g/dL Normal 0.7-1.3 [facility] Comment on above: Performed By: #### L 3100.8415, L803.0600, L3100.3450, L400.0001, L4600.0155, L101.9900, L3100.5600, L4500.0100, L3100.8410, L502.0250, L3100.7950, L100.0100, L3100.5475, L500.4050 ####[facility] [address] [place], [phone]) GAMMA GLOBULIN 0.8 g/dL Normal 0.4-1.8 [facility] Comment on above: Performed By: #### L 3100.8415, L803.0600, L3100.3450, L400.0001, L4600.0155, L101.9900, L3100.5600, L4500.0100, L3100.8410, L502.0250, L3100.7950, L100.0100, L3100.5475, L500.4050 ####[facility] [address] [place], [address] Globulin (S) [Mass/Vol] 2.5 g/dL Normal 2.2-3.9 [facility] Comment on above: Performed By: #### L 3100.8415, L803.0600, L3100.3450, L400.0001, L4600.0155, L101.9900, L3100.5600, L4500.0100, L3100.8410, L502.0250, L3100.7950, L100.0100, L3100.5475, L500.4050 ####[facility] [address] [place], [address] INTERPRETATION Comment Normal . [facility] Comment on above: Result Comment: Prot ein electrophoresis scan will follow via computer, mail, or child care cook delivery. Performed By: #### L 3100.8415, L803.0600, L3100.3450, L400.0001, L4600.0155, L101.9900, L3100.5600, L4500.0100, L3100.8410, L502.0250, L3100.7950, L100.0100, L3100.5475, L500.4050 ####[facility] [address] [place], [address] M-SPIKE Not Observed Normal Not Observed [facility] Comment on above: Performed By: #### L 3100.8415, L803.0600, L3100.3450, L400.0001, L4600.0155, L101.9900, L3100.5600, L4500.0100, L3100.8410, L502.0250, L3100.7950, L100.0100, L3100.5475, L500.4050 ####[facility] [address] [place], [place], [phone] NOTE: Comment Normal . [facility] Comment on above: Result Comment: The SPE pattern appears unremarkable. Evidence of monoclonal protein is not apparent. Performed By: #### L 3100.8415, L803.0600, L3100.3450, L400.0001, L4600.0155, L101.9900, L3100.5600, L4500.0100, L3100.8410, L502.0250, L3100.7950, L100.0100, L3100.5475, L500.4050 ####[facility] [address] [place], [address] Protein [Mass/Vol] 6.7 g/dL Normal 6.0-8.5 [facility] Comment on above: Performed By: #### L 3100.8415, L803.0600, L3100.3450, L400.0001, L4600.0155, L101.9900, L3100.5600, L4500.0100, L3100.8410, L502.0250, L3100.7950, L100.0100, L3100.5475, L500.4050 ####[facility] [address] [place], [place], [phone] ANTINUCLEAR ANTIBODIES DIREC Ton 09-23-2024 KALEIGH,DIRECT Negative Normal Negative [facility] Comment on above: Performed By: #### L 3100.8415, L803.0600, L3100.3450, L400.0001, L4600.0155, L101.9900, L3100.5600, L4500.0100, L3100.8410, L502.0250, L3100.7950, L100.0100, L3100.5475, L500.4050 ####[facility] [address] [place], [place], [phone] Antinuclear Antibody, IFAon 09-23-2024 KALEIGH, IFA Negative Normal . [facility] Comment on above: Result Comment: Nega tive <1:80 Borderline 1:80 Positive >1:80 ICAP nomenclature: AC-0 For more information about Hep-2 cell patterns use ANApatterns.org, the official website for the International Consensus on Antinuclear Antibody (KALEIGH) Patterns (ICAP). Performed at: [facility] [address] [id number] Industrial Sales Engineer: William Martin PhD, Phone: [phone] Performed By: #### L 3100.8415, L803.0600, L3100.3450, L400.0001, L4600.0155, L101.9900, L3100.5600, L4500.0100, L3100.8410, L502.0250, L3100.7950, L100.0100, L3100.5475, L500.4050 ####[facility] [address] [place], [place], [id number] L803.0600on 09-23-2024 HOMOCYSTEINE 13.8 umol/L Normal 0.0-17.2 [facility] Comment on above: Performed By: #### L 3100.8415, L803.0600, L3100.3450, L400.0001, L4600.0155, L101.9900, L3100.5600, L4500.0100, L3100.8410, L502.0250, L3100.7950, L100.0100, L3100.5475, L500.4050 ####[facility] [address] [place], [place], [phone] Urinalysis, Completeon 09-19 AMORPHOUS 2+ URATE Normal [facility] Comment on above: Order Comment: CLEAN CATCH Performed By: #### L 3100.8415, L803.0600, L3100.3450, L400.0001, L4600.0155, L101.9900, L3100.5600, L4500.0100, L3100.8410, L502.0250, L3100.7950, L100.0100, L3100.5475, L500.4050 ####[facility] [address] [place], [address] CA OX CRYSTAL 1+ /hpf Normal [facility] Comment on above: Order Comment: CLEAN CATCH Performed By: #### L 3100.8415, L803.0600, L3100.3450, L400.0001, L4600.0155, L101.9900, L3100.5600, L4500.0100, L3100.8410, L502.0250, L3100.7950, L100.0100, L3100.5475, L500.4050 ####[facility] [address] [place], [place], [phone] EPI,SQUAMOUS 0-5 SEEN Normal 5-10 [facility] Comment on above: Order Comment: CLEAN CATCH Performed By: #### L 3100.8415, L803.0600, L3100.3450, L400.0001, L4600.0155, L101.9900, L3100.5600, L4500.0100, L3100.8410, L502.0250, L3100.7950, L100.0100, L3100.5475, L500.4050 ####[facility] [address] [place], [address] RBC 50-100 SEEN Normal 0-5 [facility] Comment on above: Order Comment: CLEAN CATCH Performed By: #### L 3100.8415, L803.0600, L3100.3450, L400.0001, L4600.0155, L101.9900, L3100.5600, L4500.0100, L3100.8410, L502.0250, L3100.7950, L100.0100, L3100.5475, L500.4050 ####[facility] [address] [place], [place], [phone] WBC 10-25 SEEN Normal 0-5 [facility] Comment on above: Order Comment: CLEAN CATCH Performed By: #### L 3100.8415, L803.0600, L3100.3450, L400.0001, L4600.0155, L101.9900, L3100.5600, L4500.0100, L3100.8410, L502.0250, L3100.7950, L100.0100, L3100.5475, L500.4050 ####[facility] [address] [place], [address] Absolute lymphocyte countOrd ered By: Iron Perez on 09-18-2024 Lymphocytes Auto (Unsp spec) [#/Vol] 1.56 10*3/uL 0.83-4.51 [facility] Absolute neutrophil countOrd ered By: Iron Perez on 09-18-2024 Neutrophils (Bld) [#/Vol] 4.1 10*3/uL 2.0-7.7 [facility] Albumin DL <= 20 mg/L (U) [M ass/Vol]Ordered By: Iron Perez on 09-18-2024 Urine Random Microalbumin 64.6 mg/L NO RANGE EST. [facility] Albumin Elph [Mass/Vol]Order ed By: Iron Perez on 09-18-2024 Albumin [Mass/Vol] 4.2 g/dL 2.9-4.4 [facility] Amorphous sediment detection in urine sediment by light microscopyOrdered By: Iron Perez on 09-18-2024 Amorphous sediment LM Ql (Urine sed) 2+ URATE [facility] Anion gap in Serum or Plasma Ordered By: Iron Perez on 09-18-2024 Anion gap [Moles/Vol] 11 mmol/L 5-15 [facility] Automated blood erythrocyte countOrdered By: Iron Perez on 09-18-2024 RBC (Bld) [#/Vol] 4.16 10*6/uL Low 4.2-5.4 [facility] Comment on above: Performed By: #### L 3100.8415, L803.0600, L3100.3450, L400.0001, L4600.0155, L101.9900, L3100.5600, L4500.0100, L3100.8410, L502.0250, L3100.7950, L100.0100, L3100.5475, L500.4050 #### [facility] [address], [place], [phone] Automated blood hematocrit ( percentage)Ordered By: Iron Perez on 09-18-2024 Hematocrit (Bld) [Volume fraction] 40.1 % Normal 37-47 [facility] Comment on above: Performed By: #### L 3100.8415, L803.0600, L3100.3450, L400.0001, L4600.0155, L101.9900, L3100.5600, L4500.0100, L3100.8410, L502.0250, L3100.7950, L100.0100, L3100.5475, L500.4050 #### [facility] [address], [place], [phone] Automated lymphocyte count a s percentage of total leukocytesOrdered By: Iron Perez on 09-18-2024 Lymphocytes/100 WBC (Bld) 23.9 % Normal - [facility] Comment on above: Performed By: #### L 3100.8415, L803.0600, L3100.3450, L400.0001, L4600.0155, L101.9900, L3100.5600, L4500.0100, L3100.8410, L502.0250, L3100.7950, L100.0100, L3100.5475, L500.4050 #### [facility] [address] [facility] [place], [place], [phone] Lymphocytes/100 WBC Auto (Unsp spec) 23.9 % - [facility] BUN/creatinine ratioOrdered By: Iron Perez on 09-18-2024 Urea nitrogen/Creatinine [Mass ratio] 21.3 mg/mg High 10-20 [facility] Basophil percentageOrdered B y: Iron Perez on 09-18-2024 Basophils/100 WBC (Bld) 0.8 % Normal 0-1 [facility] Comment on above: Performed By: #### L 3100.8415, L803.0600, L3100.3450, L400.0001, L4600.0155, L101.9900, L3100.5600, L4500.0100, L3100.8410, L502.0250, L3100.7950, L100.0100, L3100.5475, L500.4050 #### [facility] [address] [place], [address] Bilirubin Test strip Ql (U)O rdered By: Iron Perez on 09-18-2024 Bilirubin Ql (U) Negative Negative [facility] Bilirubin, totalOrdered By: Iron Perez on 09-18-2024 Bilirubin [Mass/Vol] 0.19 mg/dL 0.00-1.30 [facility] CBC W/Diff, Automatedon 09-02 Absolute Lymph 1.56 X10 3/uL Normal 0.83-4.51 [facility] Comment on above: Performed By: #### L 3100.8415, L803.0600, L3100.3450, L400.0001, L4600.0155, L101.9900, L3100.5600, L4500.0100, L3100.8410, L502.0250, L3100.7950, L100.0100, L3100.5475, L500.4050 #### [facility] [address] [place], [address] Absolute Neut 4.1 X10 3/uL Normal 2.0-7.7 [facility] Comment on above: Performed By: #### L 3100.8415, L803.0600, L3100.3450, L400.0001, L4600.0155, L101.9900, L3100.5600, L4500.0100, L3100.8410, L502.0250, L3100.7950, L100.0100, L3100.5475, L500.4050 #### [facility] [address] [place], [address] IG% 0.200 Normal 0.0-0.9 [facility] Comment on above: Result Comment: IG% - Immature Granulocytes (promyelocytes, myelocytes and metamyelocytes) > 1% indicates that a LEFT SHIFT is Present. Performed By: #### L 3100.8415, L803.0600, L3100.3450, L400.0001, L4600.0155, L101.9900, L3100.5600, L4500.0100, L3100.8410, L502.0250, L3100.7950, L100.0100, L3100.5475, L500.4050 #### [facility] [address] [place], [address] (146) Nucleated RBC (Bld) [#/Vol] 0 10*3/uL Normal 0-5 [facility] Comment on above: Performed By: #### L 3100.8415, L803.0600, L3100.3450, L400.0001, L4600.0155, L101.9900, L3100.5600, L4500.0100, L3100.8410, L502.0250, L3100.7950, L100.0100, L3100.5475, L500.4050 #### [facility] [address] [place], [place], [phone] RDW SD 44.5 fl High 35.1-43.9 [facility] Comment on above: Performed By: #### L 3100.8415, L803.0600, L3100.3450, L400.0001, L4600.0155, L101.9900, L3100.5600, L4500.0100, L3100.8410, L502.0250, L3100.7950, L100.0100, L3100.5475, L500.4050 #### [facility] [address] [place], [place], [phone] Calcium oxalate crystals LM Ql (Urine sed)Ordered By: Iron Perez on 09-18-2024 Urine Calcium Oxalate Crystals 1+ /hpf [facility] Calcium oxalate crystals det ection in urine sediment by light microscopyOrdered By: Iron Perez on 09-18-2024 Calcium oxalate crystals LM Ql (Urine sed) 1+ /hpf [facility] Carbon dioxide, total [Moles /volume] in Central venous bloodOrdered By: Iron Perez on 09-18-2024 CO2 [Moles/Vol] 24.1 mmol/L 21.0-32.0 [facility] Chloride assayOrdered By: Rodger Perez on 09-18-2024 Chloride [Moles/Vol] 109 mmol/L High 98-108 [facility] Comprehensive Metabolic Prof ilon 09-18-2024 Albumin [Mass/Vol] 4.4 g/dL Normal 3.4-4.8 [facility] Comment on above: Performed By: #### L 3100.8415, L803.0600, L3100.3450, L400.0001, L4600.0155, L101.9900, L3100.5600, L4500.0100, L3100.8410, L502.0250, L3100.7950, L100.0100, L3100.5475, L500.4050 #### [facility] [address] [facility] [place], [address] Albumin/Globulin [Mass ratio] 1.7 {ratio} Normal 0.9-2.4 [facility] Comment on above: Performed By: #### L 3100.8415, L803.0600, L3100.3450, L400.0001, L4600.0155, L101.9900, L3100.5600, L4500.0100, L3100.8410, L502.0250, L3100.7950, L100.0100, L3100.5475, L500.4050 #### [facility] [address] [place], [place], [phone] ALK PHOS 125 U/L High 35-104 [facility] Comment on above: Performed By: #### L 3100.8415, L803.0600, L3100.3450, L400.0001, L4600.0155, L101.9900, L3100.5600, L4500.0100, L3100.8410, L502.0250, L3100.7950, L100.0100, L3100.5475, L500.4050 #### [facility] [address] [place], [address] ALT [Catalytic activity/Vol] 13 U/L Normal <=34 [facility] Comment on above: Performed By: #### L 3100.8415, L803.0600, L3100.3450, L400.0001, L4600.0155, L101.9900, L3100.5600, L4500.0100, L3100.8410, L502.0250, L3100.7950, L100.0100, L3100.5475, L500.4050 #### [facility] [address] [place], [address] AST [Catalytic activity/Vol] 23 U/L Normal <=31 [facility] Comment on above: Performed By: #### L 3100.8415, L803.0600, L3100.3450, L400.0001, L4600.0155, L101.9900, L3100.5600, L4500.0100, L3100.8410, L502.0250, L3100.7950, L100.0100, L3100.5475, L500.4050 #### [facility] [address] [place], [address] Bilirubin [Mass/Vol] 0.19 mg/dL Normal 0.00-1.30 [facility] Comment on above: Performed By: #### L 3100.8415, L803.0600, L3100.3450, L400.0001, L4600.0155, L101.9900, L3100.5600, L4500.0100, L3100.8410, L502.0250, L3100.7950, L100.0100, L3100.5475, L500.4050 #### [facility] [address] [place], [address] BUN/CRE 21.3 RATIO High 10-20 [facility] Comment on above: Performed By: #### L 3100.8415, L803.0600, L3100.3450, L400.0001, L4600.0155, L101.9900, L3100.5600, L4500.0100, L3100.8410, L502.0250, L3100.7950, L100.0100, L3100.5475, L500.4050 #### [facility] [address] [place], [address] Calcium [Mass/Vol] 9.7 mg/dL Normal 7.6-11.0 [facility] Comment on above: Performed By: #### L 3100.8415, L803.0600, L3100.3450, L400.0001, L4600.0155, L101.9900, L3100.5600, L4500.0100, L3100.8410, L502.0250, L3100.7950, L100.0100, L3100.5475, L500.4050 #### [facility] [address] [place], [address] Chloride [Moles/Vol] 109 mmol/L High 98-108 [facility] Comment on above: Performed By: #### L 3100.8415, L803.0600, L3100.3450, L400.0001, L4600.0155, L101.9900, L3100.5600, L4500.0100, L3100.8410, L502.0250, L3100.7950, L100.0100, L3100.5475, L500.4050 #### [facility] [address] [place], [address] CO2 [Moles/Vol] 24.1 mmol/L Normal 21.0-32.0 [facility] Comment on above: Performed By: #### L 3100.8415, L803.0600, L3100.3450, L400.0001, L4600.0155, L101.9900, L3100.5600, L4500.0100, L3100.8410, L502.0250, L3100.7950, L100.0100, L3100.5475, L500.4050 #### [facility] [address] [place], [place], [phone] Creatinine [Mass/Vol] 1.25 mg/dL High 0.70-1.20 [facility] Comment on above: Performed By: #### L 3100.8415, L803.0600, L3100.3450, L400.0001, L4600.0155, L101.9900, L3100.5600, L4500.0100, L3100.8410, L502.0250, L3100.7950, L100.0100, L3100.5475, L500.4050 #### [facility] [address] [place], [place], [phone] GAP 11 Normal 5-15 [facility] Comment on above: Performed By: #### L 3100.8415, L803.0600, L3100.3450, L400.0001, L4600.0155, L101.9900, L3100.5600, L4500.0100, L3100.8410, L502.0250, L3100.7950, L100.0100, L3100.5475, L500.4050 #### [facility] [address] [place], [place], [phone] GFR/1.73 sq M.predicted among non-blacks MDRD (S/P/Bld) [Vol rate/Area] 49 mL/min/{1.73_m2} Low >60 [facility] Comment on above: Result Comment: mL/m in/1.73m2 CKD-EPI Creatinine Equation (2020) Performed By: #### L 3100.8415, L803.0600, L3100.3450, L400.0001, L4600.0155, L101.9900, L3100.5600, L4500.0100, L3100.8410, L502.0250, L3100.7950, L100.0100, L3100.5475, L500.4050 #### [facility] [address] [place], [address] Globulin (S) [Mass/Vol] 2.7 g/dL Normal 2.2-4.2 [facility] Comment on above: Performed By: #### L 3100.8415, L803.0600, L3100.3450, L400.0001, L4600.0155, L101.9900, L3100.5600, L4500.0100, L3100.8410, L502.0250, L3100.7950, L100.0100, L3100.5475, L500.4050 #### [facility] [address] [place], [address] Glucose [Mass/Vol] 84 mg/dL Normal 70-99 [facility] Comment on above: Performed By: #### L 3100.8415, L803.0600, L3100.3450, L400.0001, L4600.0155, L101.9900, L3100.5600, L4500.0100, L3100.8410, L502.0250, L3100.7950, L100.0100, L3100.5475, L500.4050 #### [facility] [address] [place], [address] Potassium [Moles/Vol] 3.9 mmol/L Normal 3.3-5.1 [facility] Comment on above: Performed By: #### L 3100.8415, L803.0600, L3100.3450, L400.0001, L4600.0155, L101.9900, L3100.5600, L4500.0100, L3100.8410, L502.0250, L3100.7950, L100.0100, L3100.5475, L500.4050 #### [facility] [address] [place], [address] Sodium [Moles/Vol] 144 mmol/L Normal 133-145 [facility] Comment on above: Performed By: #### L 3100.8415, L803.0600, L3100.3450, L400.0001, L4600.0155, L101.9900, L3100.5600, L4500.0100, L3100.8410, L502.0250, L3100.7950, L100.0100, L3100.5475, L500.4050 #### [facility] [address] [place], [address] T PROT 7.1 g/dL Normal 5.9-8.4 [facility] Comment on above: Performed By: #### L 3100.8415, L803.0600, L3100.3450, L400.0001, L4600.0155, L101.9900, L3100.5600, L4500.0100, L3100.8410, L502.0250, L3100.7950, L100.0100, L3100.5475, L500.4050 #### [facility] [address] [place], [address] Urea nitrogen [Mass/Vol] 27 mg/dL High 4-19 [facility] Comment on above: Performed By: #### L 3100.8415, L803.0600, L3100.3450, L400.0001, L4600.0155, L101.9900, L3100.5600, L4500.0100, L3100.8410, L502.0250, L3100.7950, L100.0100, L3100.5475, L500.4050 #### [facility] [address] [place], [place], [phone] (095) Creatinine Unsp time (U) [Ma ss/Vol]Ordered By: Iron Perez on 09-18-2024 Creatinine (U) [Mass/Vol] 192.00 mg/dL 28.00-217. 00 [facility] DRVVT confirmOrdered By: Ofelia Perez on 09-18-2024 dRVVT actual/normal Coag (PPP) [Relative time] 1.3 ratio High 0.8-1.2 [facility] Dilute Akash's viper venom timeOrdered By: Iron Perez on 09-18-2024 dRVVT Coag (PPP) [Time] 130.6 s High 0.0-47.0 [facility] dRVVT Coag (PPP) [Time] 88.5 s High 0.0-40.4 [facility] Eosinophil percentageOrdered By: Iron Perez on 09-18-2024 Eosinophils/100 WBC (Bld) 6.6 % High 0-5 [facility] Comment on above: Performed By: #### L 3100.8415, L803.0600, L3100.3450, L400.0001, L4600.0155, L101.9900, L3100.5600, L4500.0100, L3100.8410, L502.0250, L3100.7950, L100.0100, L3100.5475, L500.4050 #### [facility] [address] [facility] [place], [address] Epithelial cells.squamous LM Ql (Urine sed)Ordered By: Iron Perez on 09-18-2024 Epithelial cells.squamous LM.HPF (Urine sed) [#/Area] 0 /[HPF] 5-10 [facility] Erythrocyte Sed Rateon 09-18 SED RATE 6 mm/hr Normal 0-30 [facility] Comment on above: Performed By: #### L 3100.8415, L803.0600, L3100.3450, L400.0001, L4600.0155, L101.9900, L3100.5600, L4500.0100, L3100.8410, L502.0250, L3100.7950, L100.0100, L3100.5475, L500.4050 #### [facility] [address] [place], [place], [id number] Erythrocyte distribution wid th (RBC) [Ratio]Ordered By: Iron Perez on 09-18-2024 Erythrocyte distribution width (RBC) [Entitic vol] 44.5 fL High 35.1-43.9 [facility] Erythrocyte distribution wid th ratioOrdered By: Iron Perez on 09-18-2024 Erythrocyte distribution width (RBC) [Ratio] 12.5 % Normal 11.6-14.6 [facility] Comment on above: Performed By: #### L 3100.8415, L803.0600, L3100.3450, L400.0001, L4600.0155, L101.9900, L3100.5600, L4500.0100, L3100.8410, L502.0250, L3100.7950, L100.0100, L3100.5475, L500.4050 #### [facility] [address] [place], [place], [id number] Erythrocyte distribution wid th standard deviationOrdered By: Iron Perez on 09-18-2024 Erythrocyte distribution width (RBC) [Ratio] 44.5 fl High 35.1-43.9 [facility] Erythrocyte sedimentation ra teOrdered By: Iron Perez on 09-18-2024 ESR (Bld) [Velocity] 6 mm/h 0-30 [facility] GFR/1.73 sq M.predicted catherine g non-blacks MDRD (S/P/Bld) [Vol rate/Area]Ordered By: Iron Perez on 09-18-2024 Estimated GFR (MDRD) Non-Af Amer 49 Low >60 [facility] Comment on above: mL/min/1.73m2 CKD-EP I Creatinine Equation (2020) Glomerular filtration rate ( GFR) estimation/1.73 sq m using serum, plasma, or whole bOrdered By: Iron Perez on 09-18-2024 GFR/1.73 sq M.predicted among non-blacks MDRD (S/P/Bld) [Vol rate/Area] 49 mL/min/{1.73_m2} Low >60 [facility] Comment on above: mL/min/1.73m2 CKD-EP I Creatinine Equation (2020) Glucose Ql (U)Ordered By: Rodger Perez on 09-18-2024 Urine Glucose (UA) Normal mg/dl Normal [facility] Hemoglobin measurementOrdere d By: Iron Perez on 09-18-2024 Hemoglobin (Bld) [Mass/Vol] 13.2 g/dL Normal 12.0-15.0 [facility] Comment on above: Performed By: #### L 3100.8415, L803.0600, L3100.3450, L400.0001, L4600.0155, L101.9900, L3100.5600, L4500.0100, L3100.8410, L502.0250, L3100.7950, L100.0100, L3100.5475, L500.4050 #### [facility] [address] [place], [place], [id number] Immature granulocytes/100 WB C Auto (Bld)Ordered By: Iron Perez on 09-18-2024 Immature granulocytes/100 WBC (Bld) 0.200 % 0.0-0.9 [facility] Comment on above: IG% - Immature Granu locytes (promyelocytes, myelocytes and metamyelocytes) > 1% indicates that a LEFT SHIFT is Present. Ketones Test strip Ql (U)Ord ered By: Iron Perez on 09-18-2024 Ketones Ql (U) Negative Negative [facility] - Chemistry and C hemistry - challengeOrdered By: Iron Perez on 09-18-2024 AST [Catalytic activity/Vol] 23 U/L <32 [facility] Lymphocytes Auto (Unsp spec) [#/Vol]Ordered By: Iron Perez on 09-18-2024 Lymphocytes (Bld) [#/Vol] 1.56 10*3/uL 0.83-4.51 [facility] MCV (mean corpuscular volume ) determinationOrdered By: Iron Perez on 09-18-2024 MCV (RBC) [Entitic vol] 96.4 fL Normal 81-99 [facility] Comment on above: Performed By: #### L 3100.8415, L803.0600, L3100.3450, L400.0001, L4600.0155, L101.9900, L3100.5600, L4500.0100, L3100.8410, L502.0250, L3100.7950, L100.0100, L3100.5475, L500.4050 #### [facility] [address] [facility]. [place], [place], [id number] Mean corpuscular hemoglobin (MCH) determinationOrdered By: Iron Perez on 09-18-2024 MCH (RBC) [Entitic mass] 31.7 pg Normal 27.0-32.0 [facility] Comment on above: Performed By: #### L 3100.8415, L803.0600, L3100.3450, L400.0001, L4600.0155, L101.9900, L3100.5600, L4500.0100, L3100.8410, L502.0250, L3100.7950, L100.0100, L3100.5475, L500.4050 #### [facility] [address] [place], [address] Mean corpuscular hemoglobin concentration (MCHC) determinationOrdered By: Iron Perez on 09-18-2024 MCHC (RBC) [Mass/Vol] 32.9 g/dL Normal 32-36 [facility] Comment on above: Performed By: #### L 3100.8415, L803.0600, L3100.3450, L400.0001, L4600.0155, L101.9900, L3100.5600, L4500.0100, L3100.8410, L502.0250, L3100.7950, L100.0100, L3100.5475, L500.4050 #### [facility] [address], [place], [id number] Mean platelet volume determi nationOrdered By: Iron Perez on 09-18-2024 Platelet mean volume (Bld) [Entitic vol] 10.8 fL Normal 6.2-12.0 [facility] Comment on above: Performed By: #### L 3100.8415, L803.0600, L3100.3450, L400.0001, L4600.0155, L101.9900, L3100.5600, L4500.0100, L3100.8410, L502.0250, L3100.7950, L100.0100, L3100.5475, L500.4050 #### [facility] [address] [place], [place], [id number] Microalbumin/creat ratio urO rdered By: Iron Perez on 09-18-2024 Urine Microalbumin/Creatinine Ratio 336.5 mg/g CRE [facility] Microscopic analysis of urin e for red blood cells (RBC)Ordered By: Iron Perez on 09-18-2024 Microscopic analysis of urine for red blood cells (RBC) 50-100 SEEN /hpf 0-5 [facility] Urine RBC 50-100 SEEN /hpf 0-5 [facility] Monocyte percentageOrdered B y: Iron Perez on 09-18-2024 Monocytes/100 WBC (Bld) 6.0 % Normal 0-10 [facility] Comment on above: Performed By: #### L 3100.8415, L803.0600, L3100.3450, L400.0001, L4600.0155, L101.9900, L3100.5600, L4500.0100, L3100.8410, L502.0250, L3100.7950, L100.0100, L3100.5475, L500.4050 #### [facility] [address] [place], [address] Mucus LM Ql (Urine sed)Order ed By: Iron Perez on 09-18-2024 Mucus Ql (Urine sed) 0 SEEN /hpf [facility] Neutrophil percentageOrdered By: Iron Perez on 09-18-2024 Neutrophils/100 WBC (Bld) 62.5 % Normal 47-70 [facility] Comment on above: Performed By: #### L 3100.8415, L803.0600, L3100.3450, L400.0001, L4600.0155, L101.9900, L3100.5600, L4500.0100, L3100.8410, L502.0250, L3100.7950, L100.0100, L3100.5475, L500.4050 #### [facility] [address] [place], [place], [phone] Nitrite Test strip Ql (U)Ord ered By: Iron Perez on 09-18-2024 Nitrite Ql (U) Negative Negative [facility] No Panel InformationOrdered By: Iron Perez on 09-18-2024 Addendum Document Comment . [facility] Comment on above: The SPE pattern appe ars unremarkable. Evidence ofmonoclonal protein is not apparent. MTHFR Comment Comment . [facility] Comment on above: Technical Component performed at [facility] RTPProfessional Component performed by:[facility] Fern[facility] Developmental CenterOliverio Orta, Ph.D., FACMGDirector, Molecular [address] [place] [id number] Nucleated red blood cell per centageOrdered By: Iron Perez on 09-18-2024 Nucleated RBC/100 WBC (Bld) [Ratio] 0 % 0-5 [facility] Plasma lupus anticoagulant d etection by hexagonal phase phospholipid neutralizationOrdered By: Iron Perez on 09-18-2024 aPTT W excess hexagonal phase phospholipid Ql (PPP) 6 sec 0-11 [facility] Platelet countOrdered By: Rodger Perez on 09-18-2024 Platelets (Bld) [#/Vol] 238 10*3/uL Normal 150-450 [facility] Comment on above: Performed By: #### L 3100.8415, L803.0600, L3100.3450, L400.0001, L4600.0155, L101.9900, L3100.5600, L4500.0100, L3100.8410, L502.0250, L3100.7950, L100.0100, L3100.5475, L500.4050 #### [facility] [address] [place], [place], [id number] Potassium (Unsp spec) [Mass/ Vol]Ordered By: Iron Perez on 09-18-2024 Potassium [Moles/Vol] 3.9 mmol/L 3.3-5.1 [facility] Potassium measurement (mass/ volume)Ordered By: Iron Perez on 09-18-2024 Potassium (Unsp spec) [Mass/Vol] 3.9 mmol/L 3.3-5.1 [facility] Protein Fractions Elph [Inte rp]Ordered By: Iron Perez on 09-18-2024 Protein Fractions [Interp] Comment . [facility] Comment on above: Protein electrophore sis scan will follow via computer,mail, or child care cook delivery. Protein Test strip Ql (U)Ord ered By: Iron Perez on 09-18-2024 Protein Ql (U) 30 mg/dl High Negative [facility] Random urine creatinine josh urement (mass/volume)Ordered By: Iron Perez on 09-18-2024 Creatinine Unsp time (U) [Mass/Vol] 192.00 mg/dL 28.00-217. 00 [facility] Serum albumin to globulin ra clarice by protein electrophoresisOrdered By: Iron Perez on 09-18-2024 Albumin/Globulin Elph [Mass ratio] 1.7 0.7-1.7 [facility] Serum cardiolipin IgG antibo dy assay by immunoassay (units/volume)Ordered By: Iron Perez on 09-18-2024 Cardiolipin IgG IA Qn (S) Not Reportable [facility] Serum creatinine measurement (mass/volume)Ordered By: Iron Perez on 09-18-2024 Creatinine [Mass/Vol] 1.25 mg/dL High 0.70-1.20 [facility] Serum globulin measurementOr dered By: Iron Perez on 09-18-2024 Globulin (S) [Mass/Vol] 2.7 g/dL 2.2-4.2 [facility] Serum globulin measurement ( mass/volume)Ordered By: Iron Perez on 09-18-2024 Globulin (S) [Mass/Vol] 2.5 g/dL 2.2-3.9 [facility] Serum glucose measurement (m ass/volume)Ordered By: rIon Perez on 09-18-2024 Glucose [Mass/Vol] 84 mg/dL 70-99 [facility] Serum or plasma alanine penaloza otransferase (ALT) measurementOrdered By: Iron Perez on 09-18-2024 ALT [Catalytic activity/Vol] 13 U/L <35 [facility] Serum or plasma albumin josh urement (mass/volume)Ordered By: Iron Perez on 09-18-2024 Albumin [Mass/Vol] 4.4 g/dL 3.4-4.8 [facility] Serum or plasma albumin/glob ulin mass ratioOrdered By: Iron Perez on 09-18-2024 Albumin/Globulin [Mass ratio] 1.7 {ratio} 0.9-2.4 [facility] Serum or plasma alkaline tita sphatase measurementOrdered By: Iron Perez on 09-18-2024 ALP [Catalytic activity/Vol] 125 U/L High 35-104 [facility] Serum or plasma beta globuli n measurement by electrophoresis (mass/volume)Ordered By: Iron Perez on 09-18-2024 Beta globulin Elph [Mass/Vol] 0.9 g/dL 0.7-1.3 [facility] Serum or plasma calcium josh urement (mass/volume)Ordered By: Iron Perez on 09-18-2024 Calcium [Mass/Vol] 9.7 mg/dL 7.6-11.0 [facility] Serum or plasma protein josh urement (mass/volume)Ordered By: Iron Perez on 09-18-2024 Protein [Mass/Vol] 6.7 g/dL 6.0-8.5 [facility] Serum or plasma protein mono clonal measurement by electrophoresis (mass/volume)Ordered By: Iron Perez on 09-18-2024 Protein.monoclonal Elph [Mass/Vol] Not Observed g/dL Not Observed [facility] Serum or plasma urea nitroge n measurement (mass/volume)Ordered By: Iron Perez 09-18-2024 Urea nitrogen [Mass/Vol] 27 mg/dL High 4-19 [facility] Sodium levelOrdered By: Iron Perez on 09-18-2024 Sodium [Moles/Vol] 144 mmol/L 133-145 [facility] Squamous epithelial cells de tection in urine sediment by light microscopyOrdered By: Iron Perez on 09-18-2024 Epithelial cells.squamous LM Ql (Urine sed) 0-5 SEEN /hpf 5-10 [facility] Thrombin timeOrdered By: Ofelia Perez on 09-18-2024 Thrombin time Coag (PPP) [Time] 18.9 sec 0.0-23.0 [facility] Total proteinOrdered By: Ofelia Perez on 09-18-2024 Protein [Mass/Vol] 7.1 g/dL 5.9-8.4 [facility] Urinalysis, Completeon 09-18 BACTERIA 0 SEEN Normal None Seen [facility] Comment on above: Order Comment: CLEAN CATCH Performed By: #### L 3100.8415, L803.0600, L3100.3450, L400.0001, L4600.0155, L101.9900, L3100.5600, L4500.0100, L3100.8410, L502.0250, L3100.7950, L100.0100, L3100.5475, L500.4050 ####[facility] [address] [place], [place], [id number] Mucus Ql (Urine sed) [address] [facility] Comment on above: Order Comment: CLEAN CATCH Performed By: #### L 3100.8415, L803.0600, L3100.3450, L400.0001, L4600.0155, L101.9900, L3100.5600, L4500.0100, L3100.8410, L502.0250, L3100.7950, L100.0100, L3100.5475, L500.4050 ####[facility] [address] [place], [place], [id number] Urine albumin measurement [facility] detection limit of 20 mg/L or less (mass/volume)Ordered By: Iron Perez on 09-18-2024 Albumin DL <= 20 mg/L (U) [Mass/Vol] 64.6 mg/L NO RANGE EST. [facility] Urine blood detectionOrdered By: Iron Perez on 09-18-2024 Urine Occult Blood 250 /ul High Negative [facility] Urine clarityOrdered By: Ofelia Perez on 09-18-2024 Clarity (U) Cloudy Clear [facility] Urine color determinationOrd ered By: Iron Perez on 09-18-2024 Color (U) Yellow Yellow [facility] Urine glucose detectionOrder ed By: Iron Perez on 09-18-2024 Glucose Ql (U) Normal mg/dl Normal [facility] Urine leukocyte esterase det ection by dipstickOrdered By: Iron Perez on 09-18-2024 Leukocyte esterase Test strip Ql (U) 25 /ul High Negative [facility] Urine pHOrdered By: Iron degroot on 09-18-2024 pH (U) 6.0 [pH] 5.0 - 8.0 [facility] Urine sediment bacteria coun t by microscopy (number/high power field)Ordered By: Iron Perez on 09-18-2024 Bacteria LM.HPF (Urine sed) [#/Area] 0 /[HPF] None Seen [facility] Urine specific gravity measu rementOrdered By: Iron Perez on 09-18-2024 Specific gravity (U) [Rel density] 1.020 1.002-1.03 0 [facility] Urine urobilinogen measureme ntOrdered By: Iron Perez on 09-18-2024 Urobilinogen Ql (U) Normal mg/dl Normal [facility] Urobilinogen Ql (U)Ordered B y: Iron Perez on 09-18-2024 Urine Urobilinogen Normal mg/dl Normal [facility] White blood cell (WBC) count Ordered By: Iron Perez on 09-18-2024 WBC (Bld) [#/Vol] 6.5 10*3/uL Normal 4.4-11.0 [facility] Comment on above: Performed By: #### L 3100.8415, L803.0600, L3100.3450, L400.0001, L4600.0155, L101.9900, L3100.5600, L4500.0100, L3100.8410, L502.0250, L3100.7950, L100.0100, L3100.5475, L500.4050 #### [facility] [address] [place], [address] White blood cell countOrdere d By: Iron Perez on 09-18-2024 Urine WBC 10-25 SEEN /hpf 0-5 [facility] White blood cell count 10-25 SEEN /hpf 0-5 [facility] Venous duplex ultrasound rep ortOrdered By: Iron Barlow on 09-17-2024 US Vein [facility] [address] [place] [address] Venous Duplex US, Unilateral 09/16/24 1254 MR#: [id number] Acct: [id number] Name: SUBHASH BAZZI Rep #:[id number] : 1965 59 From: Iron Jimenez Attending Dr: Dr. Iron Perez MD atus: REG CLI Ordering Dr: Iron Perez MD Date: 09/02 10/26 Location: [facility] Sex: F C Admitted: Reason For Study Reason For Study: RLE PAIN RIGHT LEFT GSV is normal. CFV is compressible, spontaneous, phasic, competent, CFV is compressible, spontaneous, phasic, competent and demonstrates normal augmentation. and demonstrates normal augmentation. FV is compressible, spontaneous, phasic, competent and demonstrates normal augmentation. POP V is compressible, spontaneous, phasic, competent and demonstrates normal augmentation. T/P Trunk is compressible. PTV is compressible. RT PerV is compressible. Soleus V is DILATED & NONCOMPRESSIBLE with bright intraluminal echoes present C/W acute on chronic DVT. Procedure This is a venous duplex using B-mode, color flow and spectral Doppler. Exam performed in department. A preliminary report was called and/or faxed to Dr. Perez's office @ 13:40. Office will call patient with instructions. VL/Venous Duplex US, Unilateral Interpretation Summary Acute on chronic deep vein thrombosis noted in the right soleus vein. Ordering Physician: Iron Perez Referring Physician: Iron Perez Performed By: Lin Tucker, RDCS, RVT 09/17/24750 Date _ Iron Barlow MD CC: Dr. Iron Perez MD ~ Date Dictated: 09/16/24 1254 Date Transcribed: 09/17/24750 Category Director: Signed [facility] Work Phone: Venous Duplex US, Unilateral on 09-16-2024 Venous Duplex US, Unilateral [facility] [address] [place] [address] Venous Duplex US, Unilateral 09/16/241253 MR#: [id number] Acct: [id number] Name: SUBHASH BAZZI Rep #: [id number] : 1965 59 From: Iron Barlow MD Attending Dr: Dr. Iron Perez MD Status: REG CL I Ordering Dr: Iron Perez MD Date: 09/16/24 Location: [facility] Sex: F C Admitted: Reason For Study Reason For Study: RLE PAIN RIGHT LEFT GSV is normal. CFV is compressible, spontaneous, phasic, competent, CFV is compressible, spontaneous, phasic, competent and demonstrates normal augmentation. and demonstrates normal augmentation. FV is compressible, spontaneous, phasic, competent and demonstrates normal augmentation. POP V is compressible, spontaneous, phasic, competent and demonstrates normal augmentation. T/P Trunk is compressible. PTV is compressible. RT PerV is compressible. Soleus V is DILATED NONCOMPRESSIBLE with bright intraluminal echoes present C/W acute on chronic DVT. Procedure This is a venous duplex using B-mode, color flow and spectral Doppler. Exam performed in department. A preliminary report was called and/or faxed to Dr. Perez's office @ 13:40. Office will call patient with instructions. VL/Venous Duplex US, Unilateral Interpretation Summary Acute on chronic deep vein thrombosis noted in the right soleus vein. Ordering Physician: Iron Perez Referring Physician: Iron Perez Performed By: Lin Tucker, KANE, RVT 09/17/24 0751 Date Iron Barlow MD CC: Dr. Irno Perez MD Date Dictated: 09/16/24 1254 Date Transcribed: 09/17/24750 Category Director: Signed [facility] 02-22-2024 [facility] Office Visit ([facility] ) -- SUBHASH BAZZI ([id number]) 1965 F Date Time Provider Department 02/22/24 10:30 AM ISAURA GAR [facility] During your visit today, we recorded the following information about you: Pulse Blood pressure Weight Height 60/minute 114/77 65.7 kg 1.6 m Isaura Gar MD 02/22/2024 11:02 AM Signed FOLLOW UP NOTE Subjective Subhash Bazzi is a 58 year old female who presents for follow up. CC: Migraine Summary of prior care: 08/2021 ambidextrous female with a history of migraine, HTN, and kidney stones who presents for evaluation. Her examination is normal. We discussed her presentation. Headaches consistent with migraine. She has been having difficulty with kidney stones, which topiramate may be contributing to. Suggested she taper off topiramate. Will start migraine supplements in its place, B2 and mag. Unclear if would need new prescription preventive medication, will see how she is doing once off. On nebivolol which also may provide headache benefit. Continue Relpax PRN. 02/2022 no changes. 02/2023 no changes. HPI Current Issues 1. Migraine - Gets around 4-5 a month - Provoked by food or weather - Eletriptan is effective, very rarely will have to take a second Headache description: - Aura: Used to get visual auras followed by vision loss of one eye during migraine but not really anymore - Onset: Anytime - Location: Unilateral usually right, goes from front of head to sides and then back and down neck - Pain: Severe pain - Duration: Aborts within an hour of taking Relpax, unaware of how long without it - Frequency: ~4-5/month - A/w: (+)photophobia / (+)phonophobia / (+/-)nausea / (-)osmophobia - has always had minimal sense of smell / (-)autonomic sx - Positional?: Better laying down - Improves with: Hot shower - Triggers: Stress, poor sleep, dehydration, certain foods - Family Hx: Dad Current preventive: Topiramate 100 mg QHS (20+ years), on nebivolol for BP Current abortive: Eletriptan 40 mg (few years, effective, takes 2-3 times a month), Excedrin Previous preventives: Propranolol (fatigue) Previous abortives: Sumatriptan (stopped working), rizatriptan CARPENTER SHIP (ineffective) Current Outpatient Medications Medication Sig Dispense Refill topiramate (TOPAMAX) 100 mg tablet TAKE ONE TABLET BY MOUTH EVERY EVENING AT BEDTIME 90 tablet 3 acyclovir (ZOVIRAX) 400 mg tablet Take 1 tablet by mouth three times a day. Telmisartan 20 mg tablet estradiol (ESTRACE) 0.01 % (0.1 mg/gram) vaginal cream Use one gram nightly x 2 weeks then use 1/2-1 gram 1-3 times weekly for maintenance 42.5 g 2 eletriptan (RELPAX) 40 mg tablet TAKE ONE TABLET BY MOUTH ONCE DAILY NEEDED FOR MIGRAINE (MAY REPEAT A DOSE IN 2 HOURS IF NEEDED) 6 tablet 11 aspirin/acetaminophen/caff eine (EXCEDRIN EXTRA STRENGTH ORAL) Take by mouth. ASPIRIN 81 MG TAB Take one tablet daily. 0 omega-3 fatty acids(FISH OIL 500 MG CAP) Take one(1) capsule daily. 0 cranberry ext/c/l. sporogenes(AZO CRANBERRY 450 MG-30 MG-50 MILLION CELL TAB) as necessary 0 nebivolol hcl(BYSTOLIC 5 MG TAB) Take one(1) tablet daily. 0 MULTIVITAMIN TAB Take one(1) tablet daily. 0 No current facility-administered medications for this visit. REVIEW OF SYSTEMS Her ROS was positive for that mentioned in the HPI. Otherwise a 10-point ROS was completed and was negative. Objective OBJECTIVE 02/22/24 1011 BP: 114/77 BP Site: Right Arm BP Position: Sitting BP Cuff Size: Regular Adult Pulse: 60 SpO2: 97% Weight: 65.7 kg (144 lb 13.5 oz) Height: 160 cm (5' 3") General: General Appearance: Well appearing, alert, in no acute distress, well-hydrated, well nourished. Head: Normocephalic Neck: Supple Heart: RRR Neurologic Exam: Mental Status: She is alert. She is fully oriented. Attention is intact. Memory is intact. Language shows normal comprehension and fluency. Affect is appropriate. Cranial Nerves: Extraocular movements show full and smooth pursuits. No nystagmus. Visual weinberg are full to confrontation. Facial activation is symmetric. Hearing is intact to conversation. There is no hypomimia. There is no hypophonia. There is no dysarthria. Tongue is midline. Palate elevates symmetrically. Shoulder shrug is normal. Motor: Muscle bulk is normal. Rapid alternating movements are normal. Muscle power is full. Coordination: Finger to nose is smooth without ataxia. Gait/station: Normal DATA REVIEW Actual films/image/tracing reviewed and summarized as follows: n/a Old records reviewed and summarized as follows: MRI Pituitary 10/04/07 possible microadenoma MRI Pituitary 04/22/08 normal Assessment/Plan ASSESSMENT AND PLAN: Subhash Bazzi is a 58 year old ambidextrous female with a history of migraine, HTN, and kidney stones who presents for follow up of migraine. Her examination is normal. 1. Migraine (more content not included)... Normal [facility] percentageOrdered B y: Manju Maldonado on 08-09-2023 Chloride [Moles/Vol] 110 mmol/L 98-107 [facility] Glucose [Mass/Vol] 81 mg/dL 74-106 [facility] Potassium [Moles/Vol] 3.5 mmol/L 3.5-5.1 [facility] Sodium [Moles/Vol] 141 mmol/L 136-145 [facility] Laboratory - Chemistry and C hemistry - challengeOrdered By: Manju Maldonado on 08-09-2023 CO2 [Moles/Vol] 23.0 mmol/L 21.0-32.0 [facility] Urea nitrogen/Creatinine [Mass ratio] 22.6 mg/mg 10-20 [facility] No Panel InformationOrdered By: Manju Maldonado on 08-09-2023 Estimated GFR (MDRD) Amer 52 mL/min >60 [facility] Comment on above: GFR Calc Estimated GFR (MDRD) Non-Af Amer 43 mL/min >60 [facility] Comment on above: Non- GFR Calc Serum or plasma calcium josh urement (mass/volume)Ordered By: Manju Maldonado on 08-09-2023 Calcium [Mass/Vol] 9.2 mg/dL 8.5-10.1 [facility] Serum or plasma creatinine m easurement (mass/volume)Ordered By: Manju Maldonado on 08-09-2023 Creatinine [Mass/Vol] 1.33 mg/dL 0.55-1.02 [facility] Comment on above: The validity of the calculated GFR & GFRAA in patients over 70 years has not been determined. Clinical correlation is essential. Serum or plasma urea nitroge n measurement (mass/volume)Ordered By: Manju Maldonado on 08-09-2023 Urea nitrogen [Mass/Vol] 30 mg/dL 7-18 [facility] Thin prep Papanicolaou smear with manual screeningOrdered By: Manju Maldonado on 08-09-2023 Thin prep Papanicolaou smear with manual screening 8 5-15 [facility] Absolute lymphocyte countOrd ered By: Iron Perez on 03-06-2023 Lymphocytes Auto (Unsp spec) [#/Vol] 1.13 10*3/uL 0.83-4.51 [facility] Basophil percentageOrdered B y: Iron Perez on 03-06-2023 Basophils/100 WBC (Bld) 1.1 % 0-1 [facility] Bilirubin [Mass/Vol] 0.50 mg/dL 0.20-1.00 [facility] Comment on above: For patients on eltr ombopag therapy, use of Dimension [place] TBIL is not recommended. Chloride [Moles/Vol] 113 mmol/L 98-107 [facility] Cholesterol [Mass/Vol] 228 mg/dL <200 [facility] Comment on above: <200 mg/dL Desirable 200-240 mg/dL Borderline >240 mg/dL High Risk Eosinophils/100 WBC (Bld) 7.4 % 0-5 [facility] Glucose [Mass/Vol] 83 mg/dL 74-106 [facility] Neutrophils (Bld) [#/Vol] 2.6 10*3/uL 2.0-7.7 [facility] Neutrophils/100 WBC (Bld) 57.0 % 47-70 [facility] Potassium [Moles/Vol] 4.1 mmol/L 3.5-5.1 [facility] Protein [Mass/Vol] 7.3 g/dL 6.4-8.2 [facility] Sodium [Moles/Vol] 142 mmol/L 136-145 [facility] Triglyceride [Mass/Vol] 138 mg/dL <199 [facility] Comment on above: The drugs N-Acetylcy steine and Metamizole may falsely depress this assay.Serum Triglycerides Reference Interval Normal <150 mg/dL Borderline high 150 - 199 mg/dL High 200 - 499 mg/dL Very High > or = 500 mg/dL WBC (Bld) [#/Vol] 4.5 10*3/uL 4.4-11.0 [facility] Blood erythrocytes count (nu mber/volume)Ordered By: Iron Perez on 03-06-2023 RBC (Bld) [#/Vol] 4.32 10*6/uL 4.2-5.4 [facility] Blood hemoglobin measurement (mass/volume)Ordered By: Iron Perez on 03-06-2023 Hemoglobin (Bld) [Mass/Vol] 13.3 g/dL 12.0-15.0 [facility] Blood lymphocytes/100 leukoc ytesOrdered By: Iron Perez on 03-06-2023 Lymphocytes/100 WBC (Bld) 25.2 % 19-41 [facility] Blood monocytes/100 leukocyt esOrdered By: Iron Perez on 03-06-2023 Monocytes/100 WBC (Bld) 8.9 % 0-10 [facility] Blood platelet mean volumeOr dered By: Iron Perez on 03-06-2023 Platelet mean volume (Bld) [Entitic vol] 11.6 fL 6.2-12.0 [facility] Determination of erythrocyte mean corpuscular volume (MCV)Ordered By: Iron Perez on 03-06-2023 MCV (RBC) [Entitic vol] 97.5 fL 81-99 [facility] Hematocrit Auto (Bld) [Volum e fraction]Ordered By: Iron Perez on 03-06-2023 Hematocrit (Bld) [Volume fraction] 42.1 % 37-47 [facility] Laboratory - Chemistry and C hemistry - challengeOrdered By: Iron Perez on 03-06-2023 ALP [Catalytic activity/Vol] 121 U/L 45-117 [facility] ALT [Catalytic activity/Vol] 23 U/L 13-56 [facility] CO2 [Moles/Vol] 23.0 mmol/L 21.0-32.0 [facility] Globulin (S) [Mass/Vol] 3.5 g/dL 2.2-4.2 [facility] Urea nitrogen/Creatinine [Mass ratio] 15.5 mg/mg 10-20 [facility] Laboratory - Hematology and Cell countsOrdered By: Iron Perez on 03-06-2023 Erythrocyte distribution width (RBC) [Entitic vol] 44.4 fL 35.1-43.9 [facility] Erythrocyte distribution width (RBC) [Ratio] 12.3 % 11.6-14.6 [facility] Immature granulocytes/100 WBC (Bld) 0.400 % 0.0-0.9 [facility] Comment on above: IG% - Immature Granu locytes (promyelocytes, myelocytes and metamyelocytes) > 1% indicates that a LEFT SHIFT is Present. MCH (RBC) [Entitic mass] 30.8 pg 27.0-32.0 [facility] Nucleated RBC/100 WBC (Bld) [Ratio] 0 % 0-5 [facility] ([facility]BC) [Mass/Vol]Or dered By: Iron Perez on 03-06-2023 MCHC (RBC) [Mass/Vol] 31.6 g/dL 32-36 [facility] No Panel InformationOrdered By: Iron Perez on 03-06-2023 Estimated GFR (MDRD) Amer 54 mL/min >60 [facility] Comment on above: GFR Calc Estimated GFR (MDRD) Non-Af Amer 45 mL/min >60 [facility] Comment on above: Non- GFR Calc Platelets bldOrdered By: Ofelia Perez on 03-06-2023 Platelets (Bld) [#/Vol] 219 10*3/uL 150-450 [facility] Serum or plasma albumin josh urement (mass/volume)Ordered By: Iron Perez on 03-06-2023 Albumin [Mass/Vol] 3.8 g/dL 3.2-5.0 [facility] Serum or plasma albumin/glob ulin mass ratioOrdered By: rIon Perez on 03-06-2023 Albumin/Globulin [Mass ratio] 1.1 {ratio} 0.9-2.4 [facility] Serum or plasma calcium josh urement (mass/volume)Ordered By: Iron Perez on 03-06-2023 Calcium [Mass/Vol] 9.4 mg/dL 8.5-10.1 [facility] Serum or plasma cholesterol in HDL measurement (mass/volume)Ordered By: Iron Perez on 03-06-2023 Cholesterol in HDL [Mass/Vol] 52 mg/dL >40 [facility] Comment on above: The drugs N-Acetylcy steine and Metamizole may falsely depress this assay. Reference Range HDL <40 mg/dL Low HDL Cholesterol HDL >or= 60 mg/dL High HDL Cholesterol Serum or plasma cholesterol in VLDL measurement (mass/volume)Ordered By: Iron Perez on 03-06-2023 Cholesterol in VLDL [Mass/Vol] 28 mg/dL 5-40 [facility] Serum or plasma creatinine m easurement (mass/volume)Ordered By: Iron Perez on 03-06-2023 Creatinine [Mass/Vol] 1.29 mg/dL 0.55-1.02 [facility] Comment on above: The validity of the calculated GFR & GFRAA in patients over 70 years has not been determined. Clinical correlation is essential. Serum or plasma low density lipoprotein (LDL) cholesterol measurement (mass/volume)Ordered By: Iron Perez on 03-06-2023 Cholesterol in LDL [Mass/Vol] 148 mg/dL 0-130 [facility] Serum or plasma urea nitroge n measurement (mass/volume)Ordered By: Iron Perez on 03-06-2023 Urea nitrogen [Mass/Vol] 20 mg/dL 7-18 [facility] Thin prep Papanicolaou smear with manual screeningOrdered By: Iron Perez on 03-06-2023 Thin prep Papanicolaou smear with manual screening 18 U/L 15-37 [facility] Thin prep Papanicolaou smear with manual screening 6 5-15 [facility] Absolute lymphocyte countOrd ered By: Bon Fisher on 12-17-2022 Lymphocytes Auto (Unsp spec) [#/Vol] 1.38 10*3/uL 0.83-4.51 [facility] Basophil percentageOrdered B y: Bon Fisher on 12-17-2022 Basophils/100 WBC (Bld) 0.6 % 0-1 [facility] Chloride [Moles/Vol] 113 mmol/L 98-107 [facility] Eosinophils/100 WBC (Bld) 4.7 % 0-5 [facility] Glucose [Mass/Vol] 108 mg/dL 74-106 [facility] Comment on above: Fasting Glucose resu lt from 100 to 125 mg/dL suggests IMPAIRED HOMEOSTASIS per A.D.A. criteria. Neutrophils (Bld) [#/Vol] 6.9 10*3/uL 2.0-7.7 [facility] Neutrophils/100 WBC (Bld) 73.5 % 47-70 [facility] Potassium [Moles/Vol] 3.6 mmol/L 3.5-5.1 [facility] Sodium [Moles/Vol] 141 mmol/L 136-145 [facility] WBC (Bld) [#/Vol] 9.4 10*3/uL 4.4-11.0 [facility] Blood erythrocytes count (nu mber/volume)Ordered By: Bon Fisher on 12-17-2022 RBC (Bld) [#/Vol] 4.06 10*6/uL 4.2-5.4 [facility] Blood hemoglobin measurement (mass/volume)Ordered By: Bon Fisher on 12-17-2022 Hemoglobin (Bld) [Mass/Vol] 12.6 g/dL 12.0-15.0 [facility] Blood lymphocytes/100 leukoc ytesOrdered By: Bon Fisher on 12-17-2022 Lymphocytes/100 WBC (Bld) 14.7 % 19-41 [facility] Blood monocytes/100 leukocyt esOrdered By: Bon Fisher on 12-17-2022 Monocytes/100 WBC (Bld) 6.0 % 0-10 [facility] Blood platelet mean volumeOr dered By: Bon Fisher on 12-17-2022 Platelet mean volume (Bld) [Entitic vol] 10.8 fL 6.2-12.0 [facility] Determination of erythrocyte mean corpuscular volume (MCV)Ordered By: Bon Fisher on 12-17-2022 MCV (RBC) [Entitic vol] 96.1 fL 81-99 [facility] Hematocrit Auto (Bld) [Volum e fraction]Ordered By: Bon Fisher on 12-17-2022 Hematocrit (Bld) [Volume fraction] 39.0 % 37-47 [facility] Laboratory - Chemistry and C hemistry - challengeOrdered By: Bon Fisher on 12-17-2022 CO2 [Moles/Vol] 23.0 mmol/L 21.0-32.0 [facility] Urea nitrogen/Creatinine [Mass ratio] 17.3 mg/mg 10-20 [facility] Laboratory - Hematology and Cell countsOrdered By: Bon Fisher on 12-17-2022 Erythrocyte distribution width (RBC) [Entitic vol] 42.8 fL 35.1-43.9 [facility] Erythrocyte distribution width (RBC) [Ratio] 12.3 % 11.6-14.6 [facility] Immature granulocytes/100 WBC (Bld) 0.500 % 0.0-0.9 [facility] Comment on above: IG% - Immature Granu locytes (promyelocytes, myelocytes and metamyelocytes) > 1% indicates that a LEFT SHIFT is Present. MCH (RBC) [Entitic mass] 31.0 pg 27.0-32.0 [facility] Nucleated RBC/100 WBC (Bld) [Ratio] 0 % 0-5 [facility] MCHC Auto (RBC) [Mass/Vol]Or dered By: Bon Fisher on 12-17-2022 MCHC (RBC) [Mass/Vol] 32.3 g/dL 32-36 [facility] No Panel InformationOrdered By: Bon Fisher on 12-17-2022 Estimated Creatinine Clearance Calc 41.19 ml/min [facility] Estimated GFR (MDRD) Amer 55 mL/min >60 [facility] Comment on above: GFR Calc Estimated GFR (MDRD) Non-Af Amer 46 mL/min >60 [facility] Comment on above: Non- GFR Calc Ethyl Alcohol Level < 3.0 mg/dL [facility] Comment on above: The serum:whole bloo d ethanol ratio is approximately 1.14and varies slightly with hematocrit. Medical Alcohol reference interval and critical value innon-tolerant individuals; 50 - 100 Impairment 100 Intoxication 100 - 250 Severe Poisoning 250 - 400 Deep/possible fatal coma Troponin I High Sensitivity 3 pg/mL 3.0-54.0 [facility] Comment on above: Please Note: New Demi t Units and Gender Specific Reference Ranges. For more information see Policy Stat Procedure [place] High Sensitivity Troponin (TNIH) and attachments. Platelets bldOrdered By: Gibran Fisher on 12-17-2022 Platelets (Bld) [#/Vol] 202 10*3/uL 150-450 [facility] Serum or plasma calcium josh urement (mass/volume)Ordered By: Bon Fisher on 12-17-2022 Calcium [Mass/Vol] 8.7 mg/dL 8.5-10.1 [facility] Serum or plasma creatinine m easurement (mass/volume)Ordered By: Bon Fisher on 12-17-2022 Creatinine [Mass/Vol] 1.27 mg/dL 0.55-1.02 [facility] Comment on above: The validity of the calculated GFR & GFRAA in patients over 70 years has not been determined. Clinical correlation is essential. Serum or plasma urea nitroge n measurement (mass/volume)Ordered By: Bon Fisher on 12-17-2022 Urea nitrogen [Mass/Vol] 22 mg/dL 7-18 [facility] Thin prep Papanicolaou smear with manual screeningOrdered By: Bon Fisher on 12-17-2022 Thin prep Papanicolaou smear with manual screening 5 5-15 [facility] Basophil percentageOrdered B y: Dr. Perez on 10-24-2022 Bilirubin [Mass/Vol] 0.40 mg/dL 0.20-1.00 [facility] Comment on above: For patients on eltr ombopag therapy, use of Dimension [place] TBIL is not recommended. Chloride [Moles/Vol] 112 mmol/L 98-107 [facility] Cholesterol [Mass/Vol] 276 mg/dL <[address] [facility] Comment on above: <200 mg/dL Desirable 200-240 mg/dL Borderline >240 mg/dL High Risk Glucose [Mass/Vol] 101 mg/dL 74-106 [facility] Comment on above: Fasting Glucose resu lt from 100 to 125 mg/dL suggests IMPAIRED HOMEOSTASIS per A.D.A. criteria. Potassium [Moles/Vol] 4.3 mmol/L 3.5-5.1 [facility] Protein [Mass/Vol] 7.6 g/dL 6.4-8.2 [facility] Sodium [Moles/Vol] 141 mmol/L 136-145 [facility] Triglyceride [Mass/Vol] 122 mg/dL <199 [facility] Comment on above: The drugs N-Acetylcy steine and Metamizole may falsely depress this assay.Serum Triglycerides Reference Interval Normal <150 mg/dL Borderline high 150 - 199 mg/dL High 200 - 499 mg/dL Very High > or = 500 mg/dL Laboratory - Chemistry and C hemistry - challengeOrdered By: Dr. Perez on 10-24-2022 ALP [Catalytic activity/Vol] 143 U/L 45-117 [facility] ALT [Catalytic activity/Vol] 17 U/L 13-56 [facility] CO2 [Moles/Vol] 21.0 mmol/L 21.0-32.0 [facility] Globulin (S) [Mass/Vol] 3.7 g/dL 2.2-4.2 [facility] Urea nitrogen/Creatinine [Mass ratio] 21.8 mg/mg 10-20 [facility] No Panel InformationOrdered By: Dr. Perez on 10-24-2022 Estimated GFR (MDRD) Amer 57 mL/min >60 [facility] Comment on above: GFR Calc Estimated GFR (MDRD) Non-Af Amer 47 mL/min >60 [facility] Comment on above: Non- GFR Calc Urine Microalbumin/Creatinine Ratio 13.7 mg/g CRE <30 [facility] No Panel Informationon 10-24 [facility] Serum or plasma albumin josh urement (mass/volume)Ordered By: Dr. Perez on 10-24-2022 Albumin [Mass/Vol] 3.9 g/dL 3.2-5.0 [facility] Serum or plasma albumin/glob ulin mass ratioOrdered By: Dr. Perez on 10-24-2022 Albumin/Globulin [Mass ratio] 1.1 {ratio} 0.9-2.4 [facility] Serum or plasma calcium josh urement (mass/volume)Ordered By: Dr. Perez on 10-24-2022 Calcium [Mass/Vol] 9.2 mg/dL 8.5-10.1 [facility] Serum or plasma cholesterol in HDL measurement (mass/volume)Ordered By: Dr. Perez on 10-24-2022 Cholesterol in HDL [Mass/Vol] 56 mg/dL >40 [facility] Comment on above: The drugs N-Acetylcy steine and Metamizole may falsely depress this assay. Reference Range HDL <40 mg/dL Low HDL Cholesterol HDL >or= 60 mg/dL High HDL Cholesterol Serum or plasma cholesterol in VLDL measurement (mass/volume)Ordered By: Dr. Perez on 10-24-2022 Cholesterol in VLDL [Mass/Vol] 24 mg/dL 5-40 [facility] Serum or plasma creatinine m easurement (mass/volume)Ordered By: Dr. Perez on 10-24-2022 Creatinine [Mass/Vol] 1.24 mg/dL 0.55-1.02 [facility] Comment on above: The validity of the calculated GFR & GFRAA in patients over 70 years has not been determined. Clinical correlation is essential. Serum or plasma low density lipoprotein (LDL) cholesterol measurement (mass/volume)Ordered By: Dr. Perez on 10-24-2022 Cholesterol in LDL [Mass/Vol] 196 mg/dL 0-130 [facility] Serum or plasma urea nitroge n measurement (mass/volume)Ordered By: Dr. Perez on 10-24-2022 Urea nitrogen [Mass/Vol] 27 mg/dL 7-18 [facility] Thin prep Papanicolaou smear with manual screeningOrdered By: Dr. Perez on 10-24-2022 Thin prep Papanicolaou smear with manual screening 15 U/L 15-37 [facility] Thin prep Papanicolaou smear with manual screening 8 5-15 [facility] Thin prep Papanicolaou smear with manual screening 18.4 mg/L NO RANGE EST. [facility] Urine creatinine measurement (mass/volume)Ordered By: Dr. Perez on 10-24-2022 Creatinine (U) [Mass/Vol] 134.00 mg/dL NO RANGE EST. [facility] Absolute lymphocyte countOrd ered By: Dr. Perez on 06-23-2022 Lymphocytes Auto (Unsp spec) [#/Vol] 1.38 10*3/uL 0.83-4.51 [facility] Basophil percentageOrdered B y: Dr. Perez on 06-23-2022 Basophils/100 WBC (Bld) 1.0 % 0-1 [facility] Bilirubin [Mass/Vol] 0.40 mg/dL 0.20-1.00 [facility] Comment on above: For patients on eltr ombopag therapy, use of Dimension [place] TBIL is not recommended. Chloride [Moles/Vol] 111 mmol/L 98-107 [facility] Cholesterol [Mass/Vol] 262 mg/dL <[address] [facility] Comment on above: <200 mg/dL Desirable 200-240 mg/dL Borderline >240 mg/dL High Risk Eosinophils/100 WBC (Bld) 10.1 % 0-5 [facility] Glucose [Mass/Vol] 90 mg/dL 74-106 [facility] Neutrophils (Bld) [#/Vol] 2.7 10*3/uL 2.0-7.7 [facility] Neutrophils/100 WBC (Bld) 54.1 % 47-70 [facility] Potassium [Moles/Vol] 4.3 mmol/L 3.5-5.1 [facility] Protein [Mass/Vol] 7.2 g/dL 6.4-8.2 [facility] Sodium [Moles/Vol] 141 mmol/L 136-145 [facility] Triglyceride [Mass/Vol] 160 mg/dL <199 [facility] Comment on above: The drugs N-Acetylcy steine and Metamizole may falsely depress this assay.Serum Triglycerides Reference Interval Normal <150 mg/dL Borderline high 150 - 199 mg/dL High 200 - 499 mg/dL Very High > or = 500 mg/dL WBC (Bld) [#/Vol] 5.0 10*3/uL 4.4-11.0 [facility] Blood erythrocytes count (nu mber/volume)Ordered By: Dr. Perez on 06-23-2022 RBC (Bld) [#/Vol] 4.30 10*6/uL 4.2-5.4 [facility] Blood hemoglobin measurement (mass/volume)Ordered By: Dr. Perez on 06-23-2022 Hemoglobin (Bld) [Mass/Vol] 13.2 g/dL 12.0-15.0 [facility] Blood lymphocytes/100 leukoc ytesOrdered By: Dr. Perez on 06-23-2022 Lymphocytes/100 WBC (Bld) 27.4 % 19-41 [facility] Blood monocytes/100 leukocyt esOrdered By: Dr. Perez on 06-23-2022 Monocytes/100 WBC (Bld) 7.0 % 0-10 [facility] Blood platelet mean volumeOr dered By: Dr. Perez on 06-23-2022 Platelet mean volume (Bld) [Entitic vol] 11.2 fL 6.2-12.0 [facility] Determination of erythrocyte mean corpuscular volume (MCV)Ordered By: Dr. Perez on 06-23-2022 MCV (RBC) [Entitic vol] 96.0 fL 81-99 [facility] Hematocrit Auto (Bld) [Volum e fraction]Ordered By: Dr. Perez on 06-23-2022 Hematocrit (Bld) [Volume fraction] 41.3 % 37-47 [facility] Laboratory - Chemistry and C hemistry - challengeOrdered By: Dr. Perez on 06-23-2022 ALP [Catalytic activity/Vol] 119 U/L 45-117 [facility] ALT [Catalytic activity/Vol] 16 U/L 13-56 [facility] CO2 [Moles/Vol] 23.0 mmol/L 21.0-32.0 [facility] Free T4 [Mass/Vol] 0.84 ng/dL 0.76-1.46 [facility] Globulin (S) [Mass/Vol] 3.4 g/dL 2.2-4.2 [facility] Magnesium [Mass/Vol] 1.8 mg/dL 1.6-2.6 [facility] Urea nitrogen/Creatinine [Mass ratio] 23.3 mg/mg 10-20 [facility] Laboratory - Hematology and Cell countsOrdered By: Dr. Perez on 06-23-2022 Erythrocyte distribution width (RBC) [Entitic vol] 41.9 fL 35.1-43.9 [facility] Erythrocyte distribution width (RBC) [Ratio] 12.1 % 11.6-14.6 [facility] Immature granulocytes/100 WBC (Bld) 0.400 % 0.0-0.9 [facility] Comment on above: IG% - Immature Granu locytes (promyelocytes, myelocytes and metamyelocytes) > 1% indicates that a LEFT SHIFT is Present. MCH (RBC) [Entitic mass] 30.7 pg 27.0-32.0 [facility] Nucleated RBC/100 WBC (Bld) [Ratio] 0 % 0-5 [facility] MCHC Auto (RBC) [Mass/Vol]Or dered By: Dr. Perez on 06-23-2022 MCHC (RBC) [Mass/Vol] 32.0 g/dL 32-36 [facility] No Panel InformationOrdered By: Dr. Perez on 06-23-2022 Estimated GFR (MDRD) Amer 59 mL/min >60 [facility] Comment on above: GFR Calc Estimated GFR (MDRD) Non-Af Amer 49 mL/min >60 [facility] Comment on above: Non- GFR Calc Parathyroid Hormone (Intact) 37.5 pg/mL 18.4-80.1 [facility] Thyroid Stimulating Hormone (TSH) 0.94 uIU/mL 0.358-3.74 [facility] Urine Microalbumin/Creatinine Ratio 27.8 mg/g CRE <30 [facility] Vitamin D 25-Hydroxy 42.6 ng/mL [facility] Comment on above: Vitamin D 25(OH) Sta tus Range Deficiency <20 ng/mL (50nmol/L) Insufficiency 20 - 30 ng/mL (50 - 75 nmol/L) Sufficiency 30 - 100 ng/mL (75 - 250 nmol/L) Toxicity >100 ng/mL (>250 nmol/L) Platelets bldOrdered By: Dr. Perez on 06-23-2022 Platelets (Bld) [#/Vol] 205 10*3/uL 150-450 [facility] Serum or plasma albumin josh urement (mass/volume)Ordered By: Dr. Perez on 06-23-2022 Albumin [Mass/Vol] 3.8 g/dL 3.2-5.0 [facility] Serum or plasma albumin/glob ulin mass ratioOrdered By: Dr. Perez on 06-23-2022 Albumin/Globulin [Mass ratio] 1.1 {ratio} 0.9-2.4 [facility] Serum or plasma calcium josh urement (mass/volume)Ordered By: Dr. Perez on 06-23-2022 Calcium [Mass/Vol] 8.7 mg/dL 8.5-10.1 [facility] Serum or plasma cholesterol in HDL measurement (mass/volume)Ordered By: Dr. Perez on 06-23-2022 Cholesterol in HDL [Mass/Vol] 55 mg/dL >40 [facility] Comment on above: The drugs N-Acetylcy steine and Metamizole may falsely depress this assay. Reference Range HDL <40 mg/dL Low HDL Cholesterol HDL >or= 60 mg/dL High HDL Cholesterol Serum or plasma cholesterol in VLDL measurement (mass/volume)Ordered By: Dr. Perez on 06-23-2022 Cholesterol in VLDL [Mass/Vol] 32 mg/dL 5-40 [facility] Serum or plasma creatinine m easurement (mass/volume)Ordered By: Dr. Perez on 06-23-2022 Creatinine [Mass/Vol] 1.20 mg/dL 0.55-1.02 [facility] Comment on above: The validity of the calculated GFR & GFRAA in patients over 70 years has not been determined. Clinical correlation is essential. Serum or plasma low density lipoprotein (LDL) cholesterol measurement (mass/volume)Ordered By: Dr. Perez on 06-23-2022 Cholesterol in LDL [Mass/Vol] 175 mg/dL 0-130 [facility] Serum or plasma urea nitroge n measurement (mass/volume)Ordered By: Dr. Perez on 06-23-2022 Urea nitrogen [Mass/Vol] 28 mg/dL 7-18 [facility] Thin prep Papanicolaou smear with manual screeningOrdered By: Dr. Perez on 06-23-2022 Thin prep Papanicolaou smear with manual screening 17 U/L 15-37 [facility] Thin prep Papanicolaou smear with manual screening 7 5-15 [facility] Thin prep Papanicolaou smear with manual screening 24.2 mg/L NO RANGE EST. [facility] Urine creatinine measurement (mass/volume)Ordered By: Dr. Perez on 06-23-2022 Creatinine (U) [Mass/Vol] 87.10 mg/dL NO RANGE EST. [facility] SURGICAL PATHOLOGYon CASE REPORT Normal [facility] Comment on above: Order Comment: Speci men Type: TISSUE SPECIMEN Result Comment: Surg ica Pathology Report Case: [id number] Authorizing Provider: Michelle Gallagher PA-C Collected: 06/02/2021 01:08 PM Ordering Location: [facility]ERY Received: 06/06/2021 02:20 PM Pathologist: Iron Yanes MD Specimen: RECTAL BIOPSY Performed By: #### S #### [facility] CLIA [id number] [address] CLINICAL HISTORY Rectal polyp Normal [facility] Comment on above: Order Comment: Speci men Type: TISSUE SPECIMEN Performed By: #### S #### [facility] CLIA [id number] [address] FINAL DIAGNOSIS Normal [facility] Comment on above: Order Comment: Speci men Type: TISSUE SPECIMEN Result Comment: A. R ectum, biopsy - Hyperplastic polyp. Performed By: #### S #### [facility] CLIA [id number] [address] FINAL PERFORMING LAB Normal [facility] Comment on above: Order Comment: Speci men Type: TISSUE SPECIMEN Result Comment: Diag nostic interpretation performed at [facility], [address] [place] [address] CLIA# [id number] [employer] Representative: Iron Yanes M.D. Performed By: #### S #### [facility] CLIA [id number] [address] GROSS DESCRIPTION Normal [facility] Comment on above: Order Comment: Speci men Type: TISSUE SPECIMEN Result Comment: A. R ECTAL BIOPSY. A. Received in formalin labeled "rectal biopsy" is a irregular magana soft tissue fragment measuring 0.2 x 0.1 x 0.1 cm. The specimen is submitted entirely in cassette A1. Gross examination performed at [facility], [address] [place] [address] OLS June 06, 2021 2:32 PM Performed By: #### S #### [facility] CLIA [id number] [address] Vital Signs Date Time Vital Sign Value Performing Clinician Marina adam 11-10-2024 08:51-0400 Body height 161.3 cm Blanca Whiteface RELIEF PHARMACIST.COMPUTER VIDEO GAME DESIGNER Work Phone: [facility] 11-10-2024 08:51-0400 Body mass index (BMI) [Ratio] 26.15 kg/m2 Blanca Teodoro RELIEF PHARMACIST.COMPUTER VIDEO GAME DESIGNER Work Phone: [facility] 11-10-2024 08:51-0400 Body weight 68.04 kg Blanca Whiteface RELIEF PHARMACIST.COMPUTER VIDEO GAME DESIGNER Work Phone: [facility] 11-10-2024 08:51-0400 Diastolic blood pressure 84 mm[Hg] Blanca Whiteface RELIEF PHARMACIST.COMPUTER VIDEO GAME DESIGNER Work Phone: [facility] 11-10-2024 08:51-0400 Systolic blood pressure 132 mm[Hg] Blanca Whiteface RELIEF PHARMACIST.COMPUTER VIDEO GAME DESIGNER Work Phone: [facility] 11-06-2024 10:46-0400 Body height 161 cm Gerardo Mobley MD Work Phone: [facility] 11-06-2024 10:46-0400 Body mass index (BMI) [Ratio] 26.07 kg/m2 Gerardo Mobley MD Work Phone: [facility] 11-06-2024 10:46-0400 Body temperature 99 [degF] Gerardo Mobley MD Work Phone: [facility] 11-06-2024 10:46-0400 Body weight 67.59 kg Gerardo Mobley MD Work Phone: [facility] 11-06-2024 10:46-0400 Diastolic blood pressure 76 mm[Hg] Gerardo Mobley MD Work Phone: [facility] 11-06-2024 10:46-0400 Heart rate 78 /min Gerardo Mobley MD Work Phone: [facility] 11-06-2024 10:46-0400 SaO2% (BldA) [Mass fraction] 96 % Gerardo Mobley MD Work Phone: [facility] 11-06-2024 10:46-0400 Systolic blood pressure 124 mm[Hg] Gerardo Mobley MD Work Phone: [facility] 10-07-2024 15:41-0400 Body temperature 98.2 [degF] Dr. Iron Perez MD Work Phone: [facility] 10-07-2024 15:41-0400 Diastolic blood pressure 59 mm[Hg] Dr. Iron Perez MD Work Phone: [facility] 10-07-2024 15:41-0400 Heart rate 79 /min Dr. Iron Perez MD Work Phone: [facility] 10-07-2024 15:41-0400 Respiratory rate 14 /min Dr. Iron Perez MD Work Phone: [facility] 10-07-2024 15:41-0400 SaO2% (BldA) [Mass fraction] 100 % Dr. Iron Perez MD Work Phone: [facility] 10-07-2024 15:41-0400 Systolic blood pressure 112 mm[Hg] Dr. Iron Perez MD Work Phone: [facility] 10-07-2024 13:19-0400 Body height 162.[address] Iron Perez MD Work Phone: [facility] 10-07-2024 13:19-0400 Body mass index (BMI) [Ratio] 26.5 kg/m2 Dr. Iron Perez MD Work Phone: [facility] 10-07-2024 13:19-0400 Body weight 70.[address] Iron Perez MD Work Phone: [facility] 02-22-2024 10:11-0400 Body height 160 cm Isaura Gar MD Work Phone: [facility] 02-22-2024 10:11-0400 Body mass index (BMI) [Ratio] 25.66 kg/m2 Isaura Gar MD Work Phone: [facility] 02-22-2024 10:11-0400 Body weight 65.7 kg Isaura Gar MD Work Phone: [facility] 02-22-2024 10:11-0400 Diastolic blood pressure 77 mm[Hg] Isaura Gar MD Work Phone: [facility] 02-22-2024 10:11-0400 Heart rate 60 /min Isaura Gar MD Work Phone: [facility] 02-22-2024 10:11-0400 SaO2% (BldA) [Mass fraction] 97 % Isaura Gar MD Work Phone: [facility] 02-22-2024 10:11-0400 Systolic blood pressure 114 mm[Hg] Isaura Gar MD Work Phone: [facility] 11-02-2023 09:04-0400 Body height 160 cm Blanca Whiteface RELIEF PHARMACIST.COMPUTER VIDEO GAME DESIGNER Work Phone: [facility] 11-02-2023 09:04-0400 Body mass index (BMI) [Ratio] 24.76 kg/m2 Blanca Teodoro RELIEF PHARMACIST.COMPUTER VIDEO GAME DESIGNER Work Phone: [facility] 11-02-2023 09:04-0400 Body weight 63.41 kg Blanca Teodoro RELIEF PHARMACIST.COMPUTER VIDEO GAME DESIGNER Work Phone: [facility] 11-02-2023 09:04-0400 Diastolic blood pressure 72 mm[Hg] Blanca Teodoro RELIEF PHARMACIST.COMPUTER VIDEO GAME DESIGNER Work Phone: [facility] 11-02-2023 09:04-0400 Systolic blood pressure 118 mm[Hg] Blanca Whiteface RELIEF PHARMACIST.COMPUTER VIDEO GAME DESIGNER Work Phone: [facility] 03-24-2023 07:48-0400 Body height 162.[address] Iron Perez Work Phone: [facility] 03-24-2023 07:48-0400 Body mass index (BMI) [Ratio] 25.2 kg/m2 Dr. Iron Perez Work Phone: [facility] 03-24-2023 07:48-0400 Body temperature 97.3 [degF] Dr. Iron Perez Work Phone: [facility] 03-24-2023 07:48-0400 Body weight 66.[address] Iron Perez Work Phone: [facility] 03-24-2023 07:48-0400 Diastolic blood pressure 81 mm[Hg] Dr. Iron Perez Work Phone: [facility] 03-24-2023 07:48-0400 Heart rate 67 /min Dr. Iron Perez Work Phone: [facility] 03-24-2023 07:48-0400 Respiratory rate 16 /min Dr. Iron Perez Work Phone: [facility] 03-24-2023 07:48-0400 SaO2% (BldA) [Mass fraction] 97 % Dr. Iorn Perez Work Phone: [facility] 03-24-2023 07:48-0400 Systolic blood pressure 130 mm[Hg] Dr. Iron Perez Work Phone: [facility] 03-21-2023 13:43-0400 Body mass index (BMI) [Ratio] 25.4 kg/m2 Dr. Iron Perez Work Phone: [facility] 03-21-2023 13:43-0400 Body temperature 98 [degF] Dr. Iron Perez Work Phone: [facility] 03-21-2023 13:43-0400 Body weight 67.[address] Iron Perez Work Phone: [facility] 03-21-2023 13:43-0400 Diastolic blood pressure 80 mm[Hg] Dr. Iron Perez Work Phone: [facility] 03-21-2023 13:43-0400 Heart rate 67 /min Dr. Iron Perez Work Phone: [facility] 03-21-2023 13:43-0400 Respiratory rate 17 /min Dr. Iron Perez Work Phone: [facility] 03-21-2023 13:43-0400 SaO2% (BldA) [Mass fraction] 96 % Dr. Iron Perez Work Phone: [facility] 03-21-2023 13:43-0400 Systolic blood pressure 122 mm[Hg] Dr. Iron Perez Work Phone: [facility] 02-21-2023 11:08-0400 Body height 162.6 cm Isaura Gar MD Work Phone: [facility] 02-21-2023 11:08-0400 Body weight 65.77 kg Isaura Gar MD Work Phone: [facility] 02-21-2023 11:08-0400 Diastolic blood pressure 85 mm[Hg] Isaura Gar MD Work Phone: [facility] 02-21-2023 11:08-0400 Heart rate 65 /min Isaura Gar MD Work Phone: [facility] 02-21-2023 11:08-0400 Systolic blood pressure 130 mm[Hg] Isaura Gar MD Work Phone: [facility] 12-17-2022 21:07-0400 Diastolic blood pressure 82 mm[Hg] [facility] 12-17-2022 21:07-0400 Heart rate 62 /min [facility] 12-17-2022 21:07-0400 Respiratory rate 18 /min [facility] 12-17-2022 21:07-0400 SaO2% (BldA) [Mass fraction] 99 % [facility] 12-17-2022 21:07-0400 Systolic blood pressure 122 mm[Hg] [facility] 12-17-2022 16:33-0400 Body height 162.56 cm [facility] 12-17-2022 16:33-0400 Body mass index (BMI) [Ratio] 25.7 kg/m2 [facility] 12-17-2022 16:33-0400 Body temperature 97 [degF] [facility] 12-17-2022 16:33-0400 Body weight 68.03 kg [facility] 11-21-2022 10:00-0400 Body weight 66.68 kg Blanca Whiteface RELIEF PHARMACIST.COMPUTER VIDEO GAME DESIGNER Work Phone: [facility] 11-21-2022 10:00-0400 Diastolic blood pressure 78 mm[Hg] Blanca Whiteface RELIEF PHARMACIST.COMPUTER VIDEO GAME DESIGNER Work Phone: [facility] 11-21-2022 10:00-0400 Systolic blood pressure 122 mm[Hg] Blanca Whiteface RELIEF PHARMACIST.COMPUTER VIDEO GAME DESIGNER Work Phone: [facility] 03-01-2022 13:16-0400 Body height 165.1 cm Isaura Gar MD Work Phone: [facility] 03-01-2022 13:16-0400 Body weight 68.95 kg Isaura Gar MD Work Phone: [facility] 03-01-2022 13:16-0400 Diastolic blood pressure 72 mm[Hg] Isaura Gar MD Work Phone: [facility] 03-01-2022 13:16-0400 Heart rate 75 /min Isaura Gar MD Work Phone: [facility] 03-01-2022 13:16-0400 Systolic blood pressure 139 mm[Hg] Isaura Gar MD Work Phone: [facility] Encounters Encounter Date Encounter Type Care Provider Facility Start: 03-31-2025 ambulatory [facility] Facility:[facility] Start: 03-31-2025 End: 03-31-2025 ambulatory [facility] Facility:[facility] Start: 01-22-2025 End: 01-23-2025 Refill Isaura Gar MD Work Phone: Neurology Comment on above: Refill Request Start: 12-16-2024 End: 12-16-2024 Refill Blanca Valerio APRN.COMPUTER VIDEO GAME DESIGNER Work Phone: OB/Gynecology Comment on above: Refill Request Start: 11-27-2024 End: 12-22-2024 Refill Isaura Gar MD Work Phone: Neurology Comment on above: Refill Request Start: 11-10-2024 End: 01-10-2025 Follow-up encounter Blanca Valerio APRN.COMPUTER VIDEO GAME DESIGNER Work Phone: OB/Gynecology Start: 11-10-2024 End: 11-10-2024 Patient encounter procedure Blanca Valerio APRN.COMPUTER VIDEO GAME DESIGNER Work Phone: OB/Gynecology Comment on above: Encounter for gyneco logical examination (general) (routine) without abnormal findings (Primary Dx); Encounter for screening mammogram for breast cancer Start: 11-10-2024 End: 11-10-2024 Patient encounter status Blanca Valerio APRN.COMPUTER VIDEO GAME DESIGNER Work Phone: [facility] Start: 11-10-2024 Encounter for gynecological examination (general) (routine) without abnormal findings BLANCA VALERIO [facility] Start: 11-10-2024 End: 11-10-2024 ambulatory BLANCA VALERIO Facility:[facility] Start: 11-10-2024 End: 11-10-2024 Subsequent hospital visit by physician Screen Mammo [facility] Comment on above: Encounter for screen ing mammogram for breast cancer [Z12.31] Start: 11-06-2024 End: 11-06-2024 Patient encounter procedure Gerardo Mobley MD Work Phone: Hematology/Oncology Start: 11-06-2024 End: 11-06-2024 ambulatory Gerardo Mobley MD Work Phone: Hematology/Oncology Comment on above: Deep vein thrombosis (DVT) of distal vein of both lower extremities, unspecified chronicity (HCC) (Primary Dx) Start: 10-16-2024 End: 10-16-[address] Iron Perez MD Work Phone: [facility] Work Phone: Start: 10-16-2024 End: 10-16-[address] Iron Perez MD -Cardiovascular Services Work Phone: Start: 10-16-2024 End: 10-16-2024 ambulatory Iron Perez Facility:[facility] Start: 10-09-2024 End: 10-15-2024 Telephone encounter Eyal Duarte DO Work Phone: Hematology/Oncology Start: 10-07-2024 End: 10-07-2024 Emergency department patient visit Dr. Vipul Hanley MD -Emergency Department Work Phone: Start: 09-18-2024 End: 09-18-[address] Iron Perez MD Work Phone: [facility] Work Phone: Start: 09-18-2024 End: 09-18-[address] Iron Perez MD -Laboratory, [facility] Start: 09-18-2024 End: 09-18-2024 ambulatory Iron Perez Facility:[facility] Start: 09-16-2024 Non-patient / Non-visit Dr. Iron torrez MD -[facility] Start: 09-16-2024 End: 09-16-[address] Iron Perez MD Work Phone: [facility] Work Phone: Start: 09-16-2024 End: 09-16-[address] Iron Perez MD -Cardiovascular Services Work Phone: Start: 09-16-2024 End: 09-16-2024 ambulatory Iron Perez Facility:[facility] Start: 06-20-2024 End: 06-23-2024 Refill Isaura Gar MD Work Phone: Neurology Comment on above: Refill Request Start: 03-21-2024 End: 03-21-2024 Refill Blanca Whiteface RELIEF PHARMACIST.COMPUTER VIDEO GAME DESIGNER Work Phone: OB/Gynecology Comment on above: Refill Request Start: 02-22-2024 End: 02-22-2024 ambulatory ISAURA GAR Facility:[facility] Start: 02-22-2024 End: 02-22-2024 Patient encounter procedure Isaura Gar MD Work Phone: Neurology Comment on above: Migraine without aur a and without status migrainosus, not intractable (Primary Dx) Start: 02-06-2024 End: 02-06-2024 Refill Blanca Whiteface RELIEF PHARMACIST.COMPUTER VIDEO GAME DESIGNER Work Phone: OB/Gynecology Comment on above: Refill Request Start: 11-06-2023 Refill Blanca Teodoro RELIEF PHARMACIST.COMPUTER VIDEO GAME DESIGNER Work Phone: OB/Gynecology Comment on above: Refill Request Start: 11-05-2023 Documentation procedure Mammog wiliam Coordinator [facility] Department Start: 11-05-2023 Letter encounter Mammography Coordinator [facility] Department Start: 11-05-2023 Telephone encounter Isaura beth MD Work Phone: Neurology Comment on above: Insurance Authorizat ion (Eletriptan) Start: 11-04-2023 Refill Isaura Gar MD Work Phone: Neurology Comment on above: Refill Request (Topa max) Start: 11-02-2023 End: 11-02-2023 Patient encounter procedure Blanca Alegrecalf JACOB.COMPUTER VIDEO GAME DESIGNER Work Phone: OB/Gynecology Comment on above: Encounter for gyneco logical examination (general) (routine) without abnormal findings (Primary Dx); Encounter for screening for human papillomavirus (HPV); Pap smear for cervical cancer screening; Encounter for screening mammogram for breast cancer; Dense breast tissue Start: 11-02-2023 End: 11-02-2023 Patient encounter status Blanca Alegrecalf JACOB.COMPUTER VIDEO GAME DESIGNER Work Phone: [facility] Start: 11-02-2023 End: 11-02-2023 Subsequent hospital visit by physician Screen Mammo [facility] Comment on above: Encounter for screen ing mammogram for malignant neoplasm of breast [Z12.31] Start: 09-22-2023 Refill Isaura Gar MD Work Phone: Neurology Comment on above: Refill Request Start: 08-17-2023 Telephone encounter Blanca [facility] BRAGGN.COMPUTER VIDEO GAME DESIGNER Work Phone: OB/Gynecology Start: 08-15-2023 End: 08-15-2023 Subsequent hospital visit by physician Us [facility] Work Phone: Radiology Comment on above: Pelvic pain in femal e [R10.2] Start: 08-09-2023 Telephone encounter Blanca [facility] BRAGGN.COMPUTER VIDEO GAME DESIGNER Work Phone: OB/Gynecology Comment on above: Left Sided Pelvic Pa in Start: 08-09-2023 End: 08-09-2023 ambulatory [facility] Work Phone: Start: 08-09-2023 End: 08-09-2023 Patient encounter procedure [facility] Work Phone: Start: 03-24-2023 End: 03-24-2023 Emergency department patient visit Dr. Iron Perez Work Phone: [facility]-Emergency Department Work Phone: Start: 03-21-2023 End: 03-21-[address] Iron Perez Work Phone: [facility] Work Phone: Start: 03-21-2023 Refill Isaura Gar MD Work Phone: Neurology Comment on above: Refill Request (William bernal) Start: 03-21-2023 Telephone encounter Isaura beth MD Work Phone: Neurology Comment on above: Medication Problem Start: 03-06-2023 End: 03-06-[address] Iron Perez Work Phone: [facility] Work Phone: Start: 02-21-2023 End: 02-21-2023 Patient encounter procedure Isaura Gar MD Work Phone: Neurology Comment on above: Migraine without aur a and without status migrainosus, not intractable (Primary Dx) Start: 02-09-2023 Non-patient / Non-visit Dr. Rodger Perez Work Phone: [facility] Start: 02-09-2023 End: 02-09-[address] Iron Perez Work Phone: [facility] Work Phone: Start: 02-09-2023 End: 02-09-[address] Iron Perez Work Phone: [facility] Work Phone: Start: 01-09-2023 End: 01-09-2023 ambulatory [facility] Work Phone: Start: 01-09-2023 End: 01-09-2023 Patient encounter procedure [facility] Work Phone: Start: 12-17-2022 End: 12-17-2022 Emergency department patient visit [facility] Work Phone: Start: 11-30-2022 Telephone encounter Blanca gonsales RELIEF PHARMACIST.COMPUTER VIDEO GAME DESIGNER Work Phone: OB/Gynecology Comment on above: Patient Question Start: 11-24-2022 Telephone encounter Blanca [facility] RELIEF PHARMACIST.COMPUTER VIDEO GAME DESIGNER Work Phone: OB/Gynecology Comment on above: Patient Update Start: 11-21-2022 End: 11-21-2022 Patient encounter procedure Blanca Valerio RELIEF PHARMACIST.COMPUTER VIDEO GAME DESIGNER Work Phone: OB/Gynecology Comment on above: Cervical polyp (Prim marie Dx); Encounter for screening mammogram for malignant neoplasm of breast; Dense breast Start: 11-07-2022 Refill Isaura Gar MD Work Phone: Neurology Comment on above: Refill Request Start: 10-24-2022 End: 10-24-2022 ambulatory [facility] Work Phone: Start: 10-24-2022 End: 10-24-2022 Patient encounter procedure [facility] Start: 10-24-2022 End: 10-24-2022 Subsequent hospital visit by physician Screen Mammo [facility] Comment on above: Encounter for screen ing mammogram for malignant neoplasm of breast [Z12.31] Start: 10-10-2022 Telephone encounter Blanca [facility] RELIEF PHARMACIST.COMPUTER VIDEO GAME DESIGNER Work Phone: OB/Gynecology Comment on above: Orders Start: 08-06-2022 Refill Isaura Gar MD Work Phone: Neurology Comment on above: Refill Request Start: 06-23-2022 End: 06-23-2022 ambulatory [facility] Work Phone: Start: 06-23-2022 End: 06-23-2022 Patient encounter procedure [facility] Start: 03-01-2022 End: 03-01-2022 Patient encounter procedure Isaura Gar MD Work Phone: Neurology Comment on above: Migraine without aur a and without status migrainosus, not intractable (Primary Dx) Start: 10-19-2021 Telephone encounter Isaura beth MD Work Phone: Neurology Comment on above: Patient Question; Pa tient Update Procedures Date Procedure Procedure Detail Performing Clinician Start: 11-10-2024 Screening digital breast tomosynthesis bi Blanca Valerio APRN.COMPUTER VIDEO GAME DESIGNER Work Phone: Start: 10-16-2024 Complete ultrasound of kidneys and bladder Dr. Iron Perez MD Work Phone: Start: 10-07-[address] Iron Perez MD Work Phone: Start: 10-07-2024 Urnls dip stick/tablet reagent auto microscopy Dr. Iron Perez MD Work Phone: Start: 09-18-2024 5,10-methylenetetrahydrofolate reductase gene analysis Dr. Iron Perez MD Work Phone: Comment on above: Result:c.665C>T (p. [id number]), legacy n jorge: [id number] - NotDetected c.1286A>C (p. [id number]), legacy name: [id number] -Detected, heterozygousInterpretation:This result is not associated with an increased risk forhyperhomocysteinemia. See Additional Clinical Informationand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 Provider Active Team Status: Inactive Member Role Status Dates Dr. Iron Perez MD Primary Care Provider Active Manju Maldonado MD Attending Provider, Referring Provide r Active Team Status: Active Member Role Status Dates Dr. Iron Perez MD Primary Care Provider Active Dr. Iron Barlow MD Attending Provider Active [employer] Relationship Specialty Start Date End Date Bing Schneider MD PCP - General Family Medicine 04/17/15 Bing Schneider MD Family Medicine 04/17/15 [employer] Relationship Specialty Start Date End Date Bing Schneider MD PCP - General Family Medicine 04/17/15 Bing Schneider MD Family Medicine 04/17/15 Team Status: Active Member Role Status Dates Dr. Iron Perez MD Primary Care Provider Active Dr. Iron Barlow MD Attending Provider Active Manju Maldonado MD Referring Provider Active Team Status: Inactive Member Role Status Dates Dr. Iron Perez MD Primary Care Provider, Referring Dulce saldana Active Puma KATE, PA Attending Provider Active Team Status: Inactive Member Role Status Dates Dr. Iron Perez MD Primary Care Provider Active Dr. Eyal Molina MD Emergency Provider Active [employer] Relationship Specialty Start Date End Date Bing Schneider MD PCP - General Family Medicine 04/17/15 Bing Schneider MD Family Medicine 04/17/15 [employer] Relationship Specialty Start Date End Date Bing Schneider MD PCP - General Family Medicine 04/17/15 Bing Schneider MD Family Medicine 04/17/15 [employer] Relationship Specialty Start Date End Date Bing Schneider MD PCP - General Family Medicine 04/17/15 Bing Schneider MD Family Medicine 04/17/15 [employer] Dis[employer] Relationship Specialty Start Date End Date Bing Schneider MD PCP - General Family Medicine 04/17/15 Bing Schneider MD Family Medicine 04/17/15 [employer]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 Relationship Specialty Start Date End Date Bing Schneider MD PCP - General Family Medicine 04/17/15 Bing Schneider MD Family Medicine 04/17/15 [employer]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 Relationship Specialty Start Date End Date Bing Schneider MD PCP - General Family Medicine 04/17/15 Bing Schneider MD Family Medicine 04/17/15 [employer]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 Relationship Specialty Start Date End Date Bing Schneider MD PCP - General Family Medicine 04/17/15 Bing Schneider MD Family Medicine 04/17/15 [employer]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 Relationship Specialty Start Date End Date Bing Schneider MD PCP - General Family Medicine 04/17/15 Bing Schneider MD Family Medicine 04/17/15 [employer] Relationship Specialty Start Date End Date Iron Perez MD [address] [place] [address] PCP - General Family Medicine 02/22/24 Bing Schneider MD Family Medicine 04/17/15 [employer] Relationship Specialty Start Date End Date Iron Perez MD [address] [place] [address] PCP - General Family Medicine 02/22/24 Bing Schneider MD Family Medicine 04/17/15 [employer] Relationship Specialty Start Date End Date Iron Perez MD [address] [place] [address] PCP - General Family Medicine 02/22/24 Bing Schneider MD Family Medicine 04/17/15 Team Status: Active Member Role Status Dates Dr. Iron Perez MD Primary Care Provider Active Team Status: Inactive Member Role Status Dates Dr. Iron Perez MD Primary Care Provider Active Start: September 16, 2024 End: September 16, 2024 Dr. Iron Perez MD Attending Provider Active St art: September 16, 2024 End: September 16, 2024 Dr. Iron Perez MD Referring Provider Active St art: September 16, 2024 End: September 16, 2024 Team Status: Active Member Role Status Dates Dr. Iron Perez MD Primary Care Provider Active Start: September 16, 2024 Dr. Iron Barlow MD Attending Provider Active S tart: September 16, 2024 Team Status: Active Member Role Status Dates Dr. Iron Perez MD Primary Care Provider Active Start: September 18, 2024 Dr. Iron Perez MD Attending Provider Active St art: September 18, 2024 Dr. Iron Perez MD Referring Provider Active St art: September 18, 2024 Team Status: Inactive Member Role Status Dates Dr. Iron Perez MD Primary Care Provider Active Start: September 18, 2024 End: September 18, 2024 Dr. Iron Perez MD Attending Provider Active St art: September 18, 2024 End: September 18, 2024 Dr. Iron Perez MD Referring Provider Active St art: September 18, 2024 End: September 18, 2024 Team Status: Active Member Role Status Dates Dr. Iron Perez MD Primary Care Provider Active Start: September 16, 2024 Dr. Iron Perez MD Referring Provider Active St art: September 16, 2024 Dr. Iron Barlow MD Attending Provider Active S tart: September 16, 2024 Team Status: Inactive Member Role Status Dates Dr. Iron Perez MD Primary Care Provider Active Start: October 07, 2024 End: October 07, 2024 Dr. Vipul Hanley MD Attending Provider Active Sta rt: October 07, 2024 End: October 07, 2024 Dr. Vipul Hanley MD Emergency Provider Active Sta rt: October 07, 2024 End: October 07, 2024 Team Status: Inactive Member Role Status Dates Dr. Iron Perez MD Primary Care Provider Active Start: October 16, 2024 End: October 16, 2024 Dr. Iron Perez MD Attending Provider Active St art: October 16, 2024 End: October 16, 2024 Dr. Iron Perez MD Referring Provider Active St art: October 16, 2024 End: October 16, 2024 [employer] Relationship Specialty Start Date End Date Iron Perez MD [address] [place] [address] PCP - General Family Medicine 02/22/24 Bing Schneider MD Family Medicine 04/17/15 [employer] Relationship Specialty Start Date End Date Iron Perez MD [address] [place] [address] PCP - General Family Medicine 02/22/24 Bing Schneider MD Family Medicine 04/17/15 [employer] Relationship Specialty Start Date End Date Iron Perez MD [address] [place] [address] PCP - General Family Medicine 02/22/24 Bing Schneider MD Family Medicine 04/17/15 [employer] Relationship Specialty Start Date End Date Iron Perez MD [address] [place], [place] [id number] PCP - General Family Medicine 02/22/24 Bing Schneider MD Family Medicine 04/17/15 [employer] Relationship Specialty Start Date End Date Iron Perez MD [address] [facility] [address] [place], [place] [id number] PCP - General Family Medicine 02/22/24 Bing Schneider MD [facility] 04/17/15 Goals (unrecognized section and content) Goals may be documented in a n alternate sectionGoals may be documented in an alternate sectionGoals may be documented in an alternate sectionGoals may be documented in an alternate sectionGoals may be documented in an alternate sectionGoals may be documented in an alternate sectionGoals may be documented in an alternate sectionGoals may be documented in an alternate sectionGoals may be documented in an alternate sectionGoals may be documented in an alternate section FOR RECORDS PERTAINING TO PATIENTS WHO ARE OR HAVE BEEN ENROLLED IN A CHEMICAL DEPENDENCY/SUBSTANCEABUSE PROGRAM, SOME INFORMATION MAY BE OMITTED. This clinical summary was aggregated from multiple sources. Caution should be exercised in using it in the provision of clinical care. This summary normalizes information from multiple sources, and as a consequence, information in this document may materially change the coding, format and clinical context of patient data. In addition, data may be omitted in some cases. CLINICAL DECISIONS SHOULD BE BASED ON THE PRIMARY CLINICAL RECORDS. [employer] [facility]. provides no warranty or guarantee of the accuracy or completeness of information in this document.
[2025-04-27 20:31] LABS: Hematocrit 39.5 % (37-47); Hemoglobin 13.0 g/dL (12.0-15.0); Immature Granulocytes Count 0.020 X10^3/uL (0.0-0.0); Mean Corp Hgb Conc 32.9 g/dL (32-36); Mean Corpuscular Volume 95.2 fL (81-99); Mean Platelet Vol. 10.7 fl (6.2-12.0); NRBC Flagged by Analyzer 0 % (0-5); Platelet Count 213 K/mm3 (150-450); RBC Distribution Width CV 12.5 % (11.6-14.6); RBC Distribution Width SD 43.5 fl (35.1-43.9); Red Blood Count 4.15 M/mm3 (4.2-5.4); White Blood Count 5.1 K/mm3 (4.4-11.0)
[2025-04-27 20:43] LABS: Anion Gap 11 (5-15); BUN 26 mg/dL (4-19); BUN/Creat Ratio 24.4 RATIO (10-20); Calcium,Total 9.2 mg/dL (7.6-11.0); Carbon Dioxide 22.4 mmol/L (21.0-32.0); Chloride 106 mmol/L (98-108); Estimated Creatinine Clearance 52.17 ml/min (50-250); Glucose 122 mg/dL (70-99); Potassium 3.8 mmol/L (3.3-5.1)
[2025-04-27 21:41] VITALS: BP 126/77; PULSE 54; RESP 16; O2SAT 100
--- NOTE | 2025-04-27 22:50 | EX.ED.VIS.HA ---
HPI History of Present Illness Chief Complaint: Headache Detail of Chief Complaint: Left-sided parietal occipital head pain and injected left eye Onset/Context/Timing Onset: Days (Patient's eye has been red for the past 3 days.) Context: Sudden Timing: Continuous Quality -Headache: Positive for Other (She complains of left parietal occipital pressure sensation that started today.); Negative for Similar Prior Headaches, Sharp, Dull, Throbbing, Tightness or Burning Location: Left parietal occipital Current Severity: Mild Maximum Severity: Mild Worsened by: Nothing Relieved by: Nothing Associated Symptoms/Injury Associated Symptoms: Negative for Fever, Nausea, Vomiting, Sore Throat, Sinus Pressure, Numbness, Tingling, Preceding Aura, Visual Changes, Blurred Vision, Photophobia or Visual Loss Injury - GUEVARA: Negative for Direct Trauma Narrative Narrative: Patient is a 60-year-old woman. She has past medical history of elevated blood pressure readings without formal diagnosis hypertension, renal insufficiency, kidney stones, benign paroxysmal positional vertigo and bradycardia. She presents tonight because of her left eye being red/injected. She denies double vision, blurred vision or loss of vision. She denies light sensitivity. She denies matting of her eyelashes or drainage from her eyes. Denies itching. She denies swelling of her lids. She denies ocular pain or retro-orbital pain. She denies pain with chewing. She denies ear pain. She denies ringing or ears or decreased hearing. She has not noted a rash on her scalp. Nothing exacerbates her ocular symptom or her head discomfort. She denies neck pain. She denies paresthesia, anesthesia or weakness of her upper or lower extremities. She denies problems with balance or coordination. She denies chest discomfort, shortness of breath or difficulty breathing. She denies abdominal pain, nausea, vomiting or diarrhea. Prior similar symptoms: No Recent Illness/Hospitalization: No [facility] Medical History BPPV (benign paroxysmal positional vertigo) Left ear pain Anxiety Alcohol use Arthritis Low iron Non-smoker Hypertension Migraines Kidney calculi Home Medications Medication Instructions Recorded Last Taken Type nebivolol 5 mg tablet (Bystolic) 20 mg PO DAILY 01/31/16 03/14/21 07:00 History topiramate 50 mg tablet 100 mg PO BID 01/31/16 03/14/21 07:00 History eletriptan 40 mg tablet (Relpax) 40 mg PO PRN PRN Headache 10/28/16 03/13/21 History multivit with minerals-folic acid 1 ea PO DAILY 11/10/16 03/13/21 History 200 mcg-biotin 300 mcg chew tablet (Women's Multivitamin with Biotin) cranberry fruit 400 mg capsule 400 mg PO DAILY 12/23/20 03/13/21 History nitrofurantoin macrocrystal 50 mg 50 mg PO DAILY 12/17/22 Unknown History capsule ramipril 1.25 mg capsule 1.25 mg PO DAILY 12/17/22 Unknown History apixaban 5 mg tablet (Eliquis) 5 mg PO BID 03/21/23 Unknown History meclizine 25 mg tablet 25 mg PO BID PRN motion sickness 03/21/23 Unknown Rx #14 tabs nitrofurantoin 100 mg PO Q12 #10 CAPSULES 10/07/24 Unknown Rx monohydrate/macrocrystals 100 mg capsule aspirin 81 mg tablet,delayed 81 mg PO DAILY 04/27/25 Unknown History release (Adult Aspirin Regimen) Allergy/AdvReac Type Severity Reaction Status Date / Time meperidine (From Demerol) Allergy Vomiting Verified 04/27/25 19:43 tioconazole (From Monistat 1 Allergy Itching Verified 04/27/25 19:43 (tioconazole)) Family History Other Breast cancer Cancer Parkinson disease Surgical History History of cystoscopy Social History household members: spouse housing: house Smoking Status: Never smoker alcohol intake: current alcohol intake frequency: a few times a month substance use type: does not use EXAM Physical Exam Const Vital Signs: 04/27/25 19:42 04/27/25 21:41 04/27/25 23:00 Temperature 98.2 F 98.2 F Temperature Source Oral Pulse Rate 76 54 L 54 L Respiratory Rate 16 16 16 Blood Pressure 154/86 H 126/77 H 126/77 H Blood Pressure Mean 108 93 93 Pulse Ox 98 100 100 Oxygen Delivery Method Room Air Room Air MDM MDM Lab Data Labs: Laboratory Results - last 24 hr 04/27/25 20:12 WBC 5.1 RBC 4.15 L Hgb 13.0 Hct 39.5 MCV 95.2 MCH 31.3 MCHC 32.9 RDW Std Deviation 43.5 RDW Coeff of Trever 12.5 Plt Count 213 MPV 10.7 Immature Gran % (Auto) 0.400 Neut % (Auto) 44.1 L Lymph % (Auto) 37.4 [place] % (Auto) 7.4 Eos % (Auto) 9.7 H Baso % (Auto) 1.0 Absolute Neuts (auto) 2.3 Absolute Lymphs (auto) 1.92 Nucleated RBC % 0 ESR 6 Sodium 139 Potassium 3.8 Chloride 106 Carbon Dioxide 22.4 Anion Gap 11 BUN 26 H Creatinine 1.06 Estim Creat Clear Calc 52.17 Est GFR (MDRD) Non-Af 59 L BUN/Creatinine Ratio 24.4 H Glucose 122 H Calcium 9.2 Discharge Plan Triage Chief Complaint: Headache Other Complaint: Eye Problem ED Provider: Vipul Hanley Dx/Rx/DC Orders Clinical Impression: Head pain, Bradycardia, Elevated blood pressure reading Instructions: Understanding Headache Pain Prescriptions: No Action Eliquis 5 mg tablet 5 mg PO BID meclizine 25 mg tablet 25 mg PO BID PRN (Reason: motion sickness) Qty: 14 0RF topiramate 50 MG tablet 100 mg PO BID Patient Comments: nebivolol [Bystolic] 5 MG tablet 20 mg PO DAILY Patient Comments: eletriptan [Relpax] 40 MG tablet 40 mg PO PRN PRN (Reason: Headache) Patient Comments: Women's Multivitamin w-Biotin 1 EACH tablet,chewable 1 ea PO DAILY cranberry fruit 400 mg Capsule 400 mg PO DAILY nitrofurantoin macrocrystal 50 mg capsule 50 mg PO DAILY ramipril 1.25 mg capsule 1.25 mg PO DAILY nitrofurantoin monohyd/m-cryst 100 mg capsule 100 mg PO Q12 Qty: 10 0RF aspirin [Adult Aspirin Regimen] 81 mg tablet,delayed release (DR/EC) 81 mg PO DAILY Primary Care Provider: Jason Perez Referrals: Jaosn Perez MD [Primary Care Provider, Family Practice] - 3-5 Days if not improving Print Language: Citizen Of [place] Disposition Disposition: Home, Self Care Discharge Date/Time: 04/27/25 23:00
[2025-04-27 23:00] VITALS: BP 126/77; PULSE 54; RESP 16; TEMP 36.8; O2SAT 100
== END 2025-04-27 23:00 | disposition home or self-care (01) ==
PROVIDERS: Emergency Provider Emergency Medicine; PCP Family Medicine; Visit Provider Emergency Medicine
DX: R51.9 Headache, unspecified (principal); R00.1 Bradycardia, unspecified; R03.0 Elevated blood-pressure reading, without diagnosis of hypertension; I10 Essential (primary) hypertension
CPT/HCPCS: 80048; 85025; 85652; 99285; A4216